=== PATIENT | female | born 1940 | race Caucasian/White ===

== ENCOUNTER 2018-08-08 20:28 | Emergency (ER) | END 2018-08-09 03:41 | disposition home or self-care (01) ==

== ENCOUNTER 2018-09-25 13:54 | Inpatient (IN) | END 2018-10-02 16:05 | disposition home health service (06) | DRG 442 ==

== ENCOUNTER 2019-01-30 11:48 | Inpatient (IN) | payer OTHER ==
[~2019-01-30] VITALS: Ht 152.4 cm; Wt 64.8 kg
[2019-01-30] VITALS (21 sets, daily range): BP systolic 70–142; BP diastolic 36–68; PULSE 53–77; RESP 10–22; Ht 152.4 cm; Wt 64.8 kg
[~2019-01-30 11:48] MED LIST: FURO40TA4 PO; LACT20SO2 PO; OMEP20CA16 PO; PROP10TA6 PO; SPIR50TA PO; ZINC220C5 PO
[2019-01-30] MEDS ORDERED: ALBUMIN HUMAN 25% 100 ML IV ONE (12:00)
[2019-01-30] MEDS ORDERED: LIDOCAINE 1% (MPF) 5 ML VIAL SC ONE (13:00)
[2019-01-30] MEDS ORDERED: CEFEPIME 2GM/50 ML (PMX) 50 ML IVPB STA (13:07)
[2019-01-30] MEDS ORDERED: SODIUM CHLORIDE 0.9% 1L BAG IV* STA (13:07)
[2019-01-30] MEDS ORDERED: NORepinephrine 8MG/250 ML (PMX 250 ML IV STA (13:07)
[2019-01-30] MEDS ORDERED: LACTULOSE 30ML CUP NGT ONE (13:30)
[2019-01-30] MEDS ORDERED: VANCOMYCIN 1 GM (PMX) 250 ML IVPB ONE (13:30)
--- NOTE | 2019-01-30 14:05 | ERD ---
ER Documentation Chief Complaint Chief Complaint hypotensive, aloc starting this morning, HPI 78-year-old female presents with altered mental status from home. Her son arrives and is able to provide mild history. It appears patient has a history of cirrhosis. Over the past 24-48 hours the patient was becoming increasingly lethargic and fused. No report of fall or injury fevers chills or cough. The patient is sonorous and unable to provide further history. ROS Limited as documented above Medications Home Meds Active Scripts Zinc Sulfate* (Zinc Sulfate*) 220 Mg Cap, 220 MG PO DAILY for 30 Days, #30 CAP 6 Refills Prov:MANAS JACKSON MD 10/02/18 Lactulose* (Lactulose*) 20 Gm/30 Ml Solution, 20 GM PO BID for 30 Days, #1 BOTTLE 6 Refills Prov:MANAS JACKSON MD 10/02/18 Reported Medications Omeprazole* (Omeprazole*) 20 Mg Capsule.dr, 20 MG PO AC BREAKFAST, #30 CAP 09/25/18 Furosemide* (Furosemide*) 40 Mg Tablet, 40 MG PO DAILY, TAB 09/25/18 Propranolol Hcl* (Propranolol Hcl*) 10 Mg Tablet, 10 MG PO BID, TAB 09/25/18 Spironolactone* (Aldactone*) 50 Mg Tablet, 100 MG PO DAILY, #30 TAB 09/25/18 Allergies Allergies: Coded Allergies: No Known Allergy (Unverified , 01/30/19) PMhx/Soc History of Surgery: No Anesthesia Reaction: No Hx Neurological Disorder: Yes (ALOC) Hx Respiratory Disorders: No Hx Cardiac Disorders: Yes (HTN) Hx Psychiatric Problems: No Hx Miscellaneous Medical Probl: Yes (CIRRHOSIS ASCITES SHINGLES) Hx Alcohol Use: No Hx Substance Use: No Hx Tobacco Use: No Smoking Status: Never smoker FmHx Family History: No diabetes Physical Exam Vitals Vital Signs Date Temp Pulse Resp B/P (MAP) Pulse Ox O2 O2 Flow FiO2 Time Delivery Rate 01/30/19 63 22 81/51 (61) 100 Room Air 14:03 01/30/19 Nasal 2 12:25 Cannula 01/30/19 95.7 62 18 74/40 (51) 100 11:58 Physical Exam General: Patient protecting airway but somewhat sonorous Head: Normocephalic, atraumatic. Eyes: Pupils equally reactive, EOM intact ENT: Dry mucous membranes Neck: Supple, no lymphadenopathy Respiratory: Lungs clear bilaterally, no distress Cardiovascular: RRR, no murmurs, rubs, or gallops Abdominal: Protuberant with fluid wave, nontender, periumbilical hernia easily reducible : Deferred MSK: Limited movement of all 4 extremities, no bony abnormalities, no asterixis Neurologic: Encephalopathic, limited exam Skin: No rash, no significant breakdown Psych: Unable to assess Result Diagram: 01/30/19 1222 01/30/19 1222 Results 24 hrs Laboratory Tests Test 01/30/19 12:04 01/30/19 12:22 01/30/19 13:59 Bedside Glucose 88 mg/dL White Blood Count 4.7 10^3/ul Red Blood Count 2.52 10^6/ul Hemoglobin 7.8 g/dl Hematocrit 23.8 % Mean Corpuscular Volume 94.4 fl Mean Corpuscular Hemoglobin 31.0 pg Mean Corpuscular 32.8 g/dl Hemoglobin Concent Red Cell Distribution Width 17.4 % Platelet Count 144 10^3/UL Mean Platelet Volume 11.2 fl Immature Granulocytes % 0.400 % Neutrophils % 64.2 % Lymphocytes % 21.1 % Monocytes % 10.1 % Eosinophils % 3.6 % Basophils % 0.6 % Nucleated Red Blood Cells % 0.0 /100WBC Immature Granulocytes # 0.020 10^3/ul Neutrophils # 3.0 10^3/ul Lymphocytes # 1.0 10^3/ul Monocytes # 0.5 10^3/ul Eosinophils # 0.2 10^3/ul Basophils # 0.0 10^3/ul Nucleated Red Blood Cells # 0.0 10^3/ul Prothrombin Time 15.9 Sec Prothrombin Time Ratio 1.2 INR International Normalized Ratio 1.26 Activated Partial Thromboplast 37.3 Sec Time Sodium Level 133 mmol/L Potassium Level 6.0 mmol/L Chloride Level 114 mmol/L Carbon Dioxide Level 7 mmol/L Anion Gap 12 Blood Urea Nitrogen 68 mg/dl Creatinine 5.50 mg/dl Est Glomerular Filtrat Rate mL/min mL/min Glucose Level 82 mg/dl Calcium Level 8.2 mg/dl Total Bilirubin 0.6 mg/dl Direct Bilirubin 0.00 mg/dl Indirect Bilirubin 0.6 mg/dl Aspartate Amino Transf (AST/SGOT) 31 IU/L Alanine 35 IU/L Aminotransferase (ALT/SGPT) Alkaline Phosphatase 164 IU/L Ammonia 237 umol/l Troponin I < 0.012 ng/ml Total Protein 6.0 g/dl Albumin 2.4 g/dl Globulin 3.60 g/dl Albumin/Globulin Ratio 0.66 POC Venous Lactate 2.6 mmol/L Current Medications Medications Dose Sig/Bhavna Start Time Status Last (Trade) Ordered Route PRN Stop Time Admin Dose Reason Admin Albumin 100 ml @ ONCE ONCE 01/30/19 DC 01/30/19 Human 100 mls/hr IV 12:00 12:57 01/30/19 12:59 Lidocaine 5 ml ONCE ONCE 01/30/19 DC (Xylocaine SC 13:00 1% (Mpf)) 01/30/19 13:01 Sodium 2,390 ml BOLUS OVER 2 01/30/19 DC 01/30/19 Chloride HOURS STAT 13:07 14:06 (NS) IV* 01/30/19 13:09 250 ml @ ONCE STAT 01/30/19 Norepinephrin 7.5 mls/hr IV 13:07 e 01/31/19 22:26 Cefepime HCl 50 ml @ ONCE STAT 01/30/19 DC 01/30/19 100 mls/hr IVPB 13:07 14:06 01/30/19 13:36 Vancomycin 250 ml @ ONCE ONCE 01/30/19 HCl 125 mls/hr IVPB 13:30 01/30/19 15:29 Lactulose 20 gm ONCE ONCE 01/30/19 DC 01/30/19 (Enulose) NGT 13:30 14:07 01/30/19 13:31 Procedures/MDM EKG, MONITORS, & DIAGNOSTIC IMAGING: EKG: I reviewed and interpreted a 12-lead EKG. Rhythm: Sinus bradycardia ST Changes: No contiguous ST segment elevations T waves: No contiguous T wave inversions Impression: [No evidence of acute cardiac ischemia] Chest x-ray: IMPRESSION: Mild chronic interstitial changes in the lung bases. Calcified aorta consistent with atherosclerotic disease. Repeat CXR IMPRESSION: New right-sided central line in place with no evidence of pneumothorax. Nasogastric tube within the stomach. CT brain IMPRESSION: 1. No acute intracranial hemorrhage, transcortical infarction or mass effect. 2. Mild intracranial atherosclerosis and chronic small vessel ischemic changes. 3. Mild cerebral volume loss more pronounced in bilateral frontal lobes with associated prominent frontal extra-axial CSF spaces. RPTAT: HH LAB INTERPRETATION: I reviewed the laboratory testing and it shows multiple abnormalities including acute renal failure with hyperkalemia, lactic acid elevation with low bicarb of 7 PROCEDURE: Central Line Note: Consent: [Critical patient, unable to obtain informed consent] Indication: Critically ill patient requiring specialized vascular access for fluid or pressor management Location: Right IJ Indication: Hypotension Procedure: Sterile procedure was observed throughout insertion of the central line. The insertion site was prepped with sterile solution. Ultrasound-guided identification of the vein was performed. Insertion of a needle into the vein was obtained with return of dark, nonpulsatile blood. The wire was then threaded through the needle without complication. The wire was then identified within the vein using ultrasound. A small skin incision was made, the needle was removed intact, dilation of the vein was performed and insertion of a triple lumen catheter was completed. The catheter was then sutured to the skin. All 3 ports altaf back and flushed without difficulty. A sterile dressing was applied. The patient tolerated the procedure well there were no complications. Emergency Bedside Ultrasound: Indication: Central line Probe Type: Linear Findings: Dynamic ultrasound utilizing compressive technique with both linear and horizontal views, additional images showing wire within the venous system were obtained. The images were saved along with patient information on a paper chart to be scanned into EMR. The patient tolerated the procedure well and there were no complications. A post-line chest x-ray was ordered as indicated. MEDICAL DECISION MAKING: Patient presents with borderline blood pressure, altered mental status very consistent with likely hepatic encephalopathy. Patient had no fever, tachycardia therefore I do not feel that this was consistent with sepsis. However during the patient's ER course and workup the patient was noted to have persistently low blood pressure as well as anion gap metabolic acidosis. I believe the anion gap metabolic acidosis is more consistent with the patient's acute renal failure possibly secondary to hepatorenal syndrome. However, empiric coverage with fluid resuscitation, blood cultures, broad- spectrum antibiotics would be appropriate. The patient has no abdominal pain suggestive of SBP. I do not believe this is consistent with meningitis and do not feel lumbar puncture is necessary. No clear source of infection currently. ER COURSE: * The patient was initially treated with albumin. However only mild response of blood pressure. As noted above the patient was noted to have anion gap acidosis, acute renal failure, hyperkalemia. * Blood pressure continued to be persistently low prompting central line. Levo to the bedside * Blood cultures and antibiotics provided * Patient was given lactulose through an NG tube * Hemoglobin consistent with baseline * Hyperkalemia treated with bicarb, Kayexalate, calcium I held on dextrose and insulin given the complexity of the patient's presentation and wanted to limited the number of interventions. * Patient was written for IV fluids. Continue to monitor respiratory status but at this point the patient is maintaining airway and seems appropriately tachypneic to catch up with her metabolic acidosis. I do not believe positive pressure ventilation or intubation are necessary at this time. * Family was updated at the bedside. CONSULTATION: [None] DISPOSITION PLAN: Accepting care team and consultations: I discussed the current laboratory data, diagnostic imaging and emergency care provided. Admitting team: Dr. Jean Admitting team indication: Insurance directed The patient does not meet Sirs criteria in the emergency room setting. The temperature is the only abnormality and this was not on rectally. Rectal temperature pending. Patient was treated with appropriate fluids and antibiotics for sepsis but I do not believe this is consistent with sepsis in the emergency room setting. More consistent with hepatorenal syndrome, hepatic encephalopathy. Lactic acid is likely explained by this process as well. Departure Diagnosis: Primary Impression: Acute hepatic encephalopathy Additional Impressions: Acute renal failure Acute renal failure type: unspecified Qualified Codes: N17.9 - Acute kidney failure, unspecified Hyperkalemia Anemia Anemia type: unspecified type Qualified Codes: D64.9 - Anemia, unspecified Hypotension Hypotension type: unspecified hypotension type Qualified Codes: I95.9 - Hypotension, unspecified Hyperammonemia Condition: Critical MELISSA CHEN MD Jan 30, 2019 14:05
[2019-01-30] MEDS ORDERED: SODIUM POLYSTYRENE 15 GM KIT (POWDER + SORBITOL) NGT STA (14:13)
[2019-01-30] MEDS ORDERED: NA BICARBONATE 8.4% 50 ML SYG IV STA (14:13)
[2019-01-30] MEDS ORDERED: CA CHLORIDE 10% 10 ML SYRINGE IV STA (14:13)
[2019-01-30] MEDS ORDERED: ALBUMIN HUMAN 25% 50 ML IV SCH (16:00)
--- NOTE | 2019-01-30 16:04 | HP ---
Date/Time of Note Date/Time of Note DATE: 01/30/19 TIME: 15:43 Assessment/Plan VTE Prophylaxis SCD applied (from Nsg): Yes Pharmacological prophylaxis: heparin Lines/Catheters IV Catheter Type (from Nrsg): Saline Lock Assessment/Plan Hospital Course 78 yo female with h/o cirrhosis who presents with obtundation and severe REVA REVA: - Unclear etiology. Renal ultrasound prelim without obstruction - She is on diuretics but is hypervolemic on exam so unlikely prerenal disease - Kayexalate has been given for hyperkalemia - Will given 25% albumin - Renal has been consulted for consideration of HD - Urine studies pending Acute encephelopathy/obtundation: - Hepatic encephelopahty certainly high on differential, will continue la ctulose/rifaxamin via NG tube - Head CT without acute pathology - Will continue empiric abx for possible sepsis, low threshold to discontinue in 2 days if cultures negative Cirrohsis; - Lactulose/rifaxamin as above - Hold diuretics and propranolol Anemia - From cirrhosis, no clinical report of bleeding Metabolic acidosis: - Likely from renal failure and respiratory alkalosis To ICU Result Diagram: 01/30/19 1222 01/30/19 1222 Results 24hrs Laboratory Tests Test 01/30/19 12:04 01/30/19 12:22 01/30/19 13:59 Bedside Glucose 88 White Blood Count 4.7 L Red Blood Count 2.52 L Hemoglobin 7.8 L Hematocrit 23.8 L Mean Corpuscular Volume 94.4 Mean Corpuscular Hemoglobin 31.0 Mean Corpuscular Hemoglobin Concent 32.8 Red Cell Distribution Width 17.4 H Platelet Count 144 # Mean Platelet Volume 11.2 H Immature Granulocytes % 0.400 Neutrophils % 64.2 Lymphocytes % 21.1 Monocytes % 10.1 Eosinophils % 3.6 Basophils % 0.6 Nucleated Red Blood Cells % 0.0 Immature Granulocytes # 0.020 Neutrophils # 3.0 Lymphocytes # 1.0 Monocytes # 0.5 Eosinophils # 0.2 Basophils # 0.0 Nucleated Red Blood Cells # 0.0 Prothrombin Time 15.9 H Prothrombin Time Ratio 1.2 INR International Normalized Ratio 1.26 Activated Partial Thromboplast Time 37.3 H Sodium Level 133 L Potassium Level 6.0 H Chloride Level 114 H Carbon Dioxide Level 7 *L Anion Gap 12 Blood Urea Nitrogen 68 H Creatinine 5.50 H Est Glomerular Filtrat Rate mL/min Glucose Level 82 Calcium Level 8.2 L Total Bilirubin 0.6 Direct Bilirubin 0.00 Indirect Bilirubin 0.6 Aspartate Amino Transf (AST/SGOT) 31 Alanine Aminotransferase (ALT/SGPT) 35 Alkaline Phosphatase 164 H Ammonia 237 #H Troponin I < 0.012 Total Protein 6.0 L Albumin 2.4 L Globulin 3.60 H Albumin/Globulin Ratio 0.66 POC Venous Lactate 2.6 *H HPI/ROS Admit Date/Time Admit Date/Time Hx of Present Illness 78 yo female with 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 Went to her outpatinet [employer] Work[employer] who increased lactulose out of concern for HE. Despite this she has become lethargic to the point of obtundation today for which Deny called [phone] She denied any other complaints Here found to be lethargic. Head CT non-acute. In severe renal failure ROS Constitutional: no complaints, improved Eyes: no complaints ENT: no complaints Respiratory: no complaints Cardiovascular: no complaints Gastrointestinal: no complaints Genitourinary: no complaints Musculoskeletal: no complaints Skin: no complaints Neurologic: no complaints Endocrine: no complaints Lymphatic: no complaints Psychological: no complaints, nl mood/affect Immunologic: no complaints PMH/Family/Social Past Medical History Cirrhosis Medications Current Medications Norepinephrine 250 ml @ 7.5 mls/hr ONCE STAT IV ; Start 01/30/19 at 13:07; Stop 01/31/19 at 22:26 Coded Allergies: No Known Allergy (Unverified , 01/30/19) Past Surgical History Past Surgical Hx: no surgical history Family History Significant Family History: no pertinent family hx Social History Alcohol Use: none Smoking Status: Never smoker Drug Use: none Exam/Review of Systems Vital Signs Vitals Vital Signs Date Temp Pulse Resp B/P (MAP) Pulse Ox O2 O2 Flow FiO2 Time Delivery Rate 01/30/19 62 22 98/77 (84) 100 Room Air 15:13 01/30/19 2 12:25 01/30/19 95.7 11:58 Exam Exam Lethargic Responsive to noxious stimuli Pupils reactive Breathing comfortably RRR Abodmen distended, nontender Ext with edema ALICIA SHARP MD Jan 30, 2019 16:04
[2019-01-30] MEDS ORDERED: LACTULOSE 30ML CUP PO PRN (16:30)
[2019-01-30] MEDS ORDERED: VANCOMYCIN IV PER PHARMACY XX SCH (16:30)
[2019-01-30] MEDS: ALBUMIN HUMAN 25% 100 ML IV SCH ×2 (19:05→23:40)
--- NOTE | 2019-01-30 19:23 | CONS ---
Assessment/Plan Assessment/Plan Assessment/Plan (Daily) Assessment: Hepatic encephalopathy -ammonia level 237 Liver cirrhosis with ascites Acute renal failure -we will out hepatorenal syndrome Anemia Plan: Diagnostic paracentesis tomorrow Paracentesis fluid for cultures Continue lactulose and rifaximin Continue antibiotics Consider nephrology consult for diuresis Monitor H&H Transfuse for hemoglobin less than 7.5 Patient seen in collaboration with Dr. Avilez Consultation Date/Type/Reason Admit Date/Time Date of Consultation: Jan 30, 2019 Type of Consult GI Date/Time of Note DATE: 01/30/19 TIME: 19:07 Hx of Present Illness This is a 78-year-old female with a history of liver cirrhosis, unknown etiology who was admitted for altered mental status. Patient is obtunded and unable to provide information. Information obtained from previous medical records. Patient was started on lactulose and rifaximin for ammonia level of 237. Hemoglobin on admission was 7.8 with no evidence of overt GI bleeding. There is no evidence of hematemesis, vomiting, hematochezia, melena or abdominal pain. Creatinine is 5.50 raising suspicion for hepatorenal syndrome. Moderate ascites present. Patient was previously on diuretics. Will order paracentesis with LDH and cell count. Recommend nephrology consult for diuresis and managing possible hepatorenal syndrome. Patient was started on antibiotics for SBP prophylaxis. NG tube inserted for medication administration. Albumin has been ordered. We will continue close observation. Gastrointestinal: no complaints (See HPI) Past Medical History Home Meds Active Scripts Zinc Sulfate* (Zinc Sulfate*) 220 Mg Cap, 220 MG PO DAILY for 30 Days, #30 CAP 6 Refills Prov:MANAS JACKSON MD 10/02/18 Lactulose* (Lactulose*) 20 Gm/30 Ml Solution, 20 GM PO BID for 30 Days, #1 BOTTLE 6 Refills Prov:MANAS JACKSON MD 10/02/18 Reported Medications Omeprazole* (Omeprazole*) 20 Mg Capsule., 20 MG PO AC BREAKFAST, #30 CAP 09/25/18 Furosemide* (Furosemide*) 40 Mg Tablet, 40 MG PO DAILY, TAB 09/25/18 Propranolol Hcl* (Propranolol Hcl*) 10 Mg Tablet, 10 MG PO BID, TAB 09/25/18 Spironolactone* (Aldactone*) 50 Mg Tablet, 100 MG PO DAILY, #30 TAB 09/25/18 Medications Current Medications Norepinephrine 250 ml @ 7.5 mls/hr ONCE STAT IV ; Start 01/30/19 at 13:07; Stop 01/31/19 at 22:26 Vancomycin HCl (Vanco Iv Per Pharmacy) VANCOMYCIN PER PHARMACY PER PROTOCOL XX ; Start 01/30/19 at 16:30 Piperacillin Sod/ Tazobactam Sod 50 ml @ 100 mls/hr Q8 IVPB ; Start 01/30/19 at 22:00 Rifaximin (Xifaxan) 550 mg BID PO ; Start 01/30/19 at 21:00 Heparin Sodium (Porcine) (Heparin (5000 Units/1ml)) 5,000 unit Q12 SC ; Start 01/30/19 at 21:00 Lactulose (Enulose) 20 gm Q6H PO ; Start 01/30/19 at 22:30 Albumin Human 100 ml @ 100 mls/hr Q8H IV Last administered on 01/30/19at 19:05; Admin Dose 100 MLS/HR; Start 01/30/19 at 16:00; Stop 01/31/19 at 08:59 Allergies: Coded Allergies: No Known Allergy (Unverified , 01/30/19) Past Surgical History Past Surgical Hx: no surgical history Social History Alcohol Use: none Smoking Status: Former smoker Drug Use: none Exam/Review of Systems Exam Vitals Vital Signs Date Temp Pulse Resp B/P (MAP) Pulse Ox O2 O2 Flow FiO2 Time Delivery Rate 01/30/19 67 13 107/68 98 Room Air 18:00 (81) 01/30/19 95.2 16:31 01/30/19 2 12:25 Exam PHYSICAL EXAMINATION: GENERAL: Well developed, well nourished, alert & oriented x 3, in no acute distress SKIN: No lesions, no stigmata chronic liver disease, no evidence of bleeding diathesis LYMPHATIC: No palpable lymphadenopathy. HEAD: Normocephalic, atraumatic, no tenderness. EYES: Pupils equal reactive to light and accommodation, full extraocular movements, sclera clear, non-icteric, no discharge. EARS/NOSE AND THROAT: Ears normal, nose normal, oropharynx normal, oral membranes well hydrated without lesions. NG tube in place. NECK: Supple, no masses, thyroid normal, JVP within normal limits, carotids normal without bruits. CHEST: Inspection within normal limits. CARDIOVASCULAR: Heart: Regular rate and rhythm, no murmurs, gallops or rubs. Peripheral pulses present within normal limits, no cyanosis, clubbing or edemas. No pulsatile abdominal mass RESPIRATORY: Lungs clear to auscultation and percussion, no wheezing, no rubs GASTROINTESTINAL AND LIVER: Abdomen: Soft, non tenderness, non-distended, umbilical hernias, no masses, no organomegaly, moderate ascites, no guarding, no rebound tenderness, normoactive bowel sounds. Rectal: Deferred. GENITOURINARY: Female genitalia within normal limits. Raphael catheter in place EXTREMITIES: No cyanosis, clubbing or edema. Results Result Diagram: 01/30/19 1222 01/30/19 1222 Results 24hrs Laboratory Tests Test 01/30/19 12:04 01/30/19 12:22 01/30/19 13:59 01/30/19 16:06 Bedside Glucose 88 White Blood Count 4.7 L Red Blood Count 2.52 L Hemoglobin 7.8 L Hematocrit 23.8 L Mean Corpuscular 94.4 Volume Mean Corpuscular 31.0 Hemoglobin Mean Corpuscular 32.8 Hemoglobin Concent Red Cell 17.4 H Distribution Width Platelet Count 144 # Mean Platelet Volume 11.2 H Immature 0.400 Granulocytes % Neutrophils % 64.2 Lymphocytes % 21.1 Monocytes % 10.1 Eosinophils % 3.6 Basophils % 0.6 Nucleated Red Blood 0.0 Cells % Immature 0.020 Granulocytes # Neutrophils # 3.0 Lymphocytes # 1.0 Monocytes # 0.5 Eosinophils # 0.2 Basophils # 0.0 Nucleated Red Blood 0.0 Cells # Prothrombin Time 15.9 H Prothrombin Time 1.2 Ratio INR International 1.26 Normalized Ratio Activated 37.3 H Partial Thromboplast Time Sodium Level 133 L Potassium Level 6.0 H Chloride Level 114 H Carbon Dioxide Level 7 *L Anion Gap 12 Blood Urea Nitrogen 68 H Creatinine 5.50 H Est Glomerular Filtrat Rate mL/min Glucose Level 82 Calcium Level 8.2 L Total Bilirubin 0.6 Direct Bilirubin 0.00 Indirect Bilirubin 0.6 Aspartate Amino 31 Transf (AST/SGOT) Alanine 35 Aminotransferase (AL T/SGPT) Alkaline Phosphatase 164 H Ammonia 237 #H Troponin I < 0.012 Total Protein 6.0 L Albumin 2.4 L Globulin 3.60 H Albumin/Globulin 0.66 Ratio POC Venous Lactate 2.6 *H 2.3 *H Medications Medication Current Medications Norepinephrine 250 ml @ 7.5 mls/hr ONCE STAT IV ; Start 01/30/19 at 13:07; Stop 01/31/19 at 22:26 Vancomycin HCl (Vanco Iv Per Pharmacy) VANCOMYCIN PER PHARMACY PER PROTOCOL XX ; Start 01/30/19 at 16:30 Piperacillin Sod/ Tazobactam Sod 50 ml @ 100 mls/hr Q8 IVPB ; Start 01/30/19 at 22:00 Rifaximin (Xifaxan) 550 mg BID PO ; Start 01/30/19 at 21:00 Heparin Sodium (Porcine) (Heparin (5000 Units/1ml)) 5,000 unit Q12 SC ; Start 01/30/19 at 21:00 Lactulose (Enulose) 20 gm Q6H PO ; Start 01/30/19 at 22:30 Albumin Human 100 ml @ 100 mls/hr Q8H IV Last administered on 01/30/19at 19:05; Admin Dose 100 MLS/HR; Start 01/30/19 at 16:00; Stop 01/31/19 at 08:59 CHADD PEREZ NP Jan 30, 2019 19:20
[2019-01-30] MEDS ORDERED: NA BICARBONATE 8.4% 50 ML SYG IV ONE (20:30)
--- NOTE | 2019-01-30 20:55 | CONS ---
DATE OF ADMISSION: 01/30/2019 DATE OF CONSULTATION: 01/30/2019 TYPE OF CONSULTATION: Nephrology. REASON FOR CONSULTATION: Acute kidney injury, hyperkalemia. HISTORY OF PRESENT ILLNESS: This is a 78-year-old female with a past medical history of cirrhosis, a history of ascites, history of hypertension, who presents to [facility] emergency room with altered mental status. The patient's history is obtained by reviewing medical records and speaking to hospital staff. The patient apparently was noted over the last several days to have decreased men cary capacity, decreased oral intake, increased lethargy. As a result, the patient was brought in to the emergency room. Upon arrival, patient had laboratory data drawn, which showed a BUN of 68, creat inine 5.5, a potassium level of 7 and a bicarbonate of 7. The patient also had a white count of 4.7. In the emergency room, the patient had a CT scan of the brain that showed no acute findings. A forrest st x-ray was obtained which showed interstitial lung disease, calcified aorta. The patient also had a renal ultrasound which showed echogenic kidneys consistent with medical renal disease, no evidence of obstruction and moderate amount of ascites. The patient in the emergency room was given calcium g luconate, Kayexalate, and sodium bicarbonate. The patient was also given IV fluids and antibiotic th erapy. In terms of patient's renal history, the patient's previous baseline creatinine was about 0.7 mg/dL i n 09/2018. The patient had no reports of any hemoptysis, hematemesis or hematochezia. PAST MEDICAL HISTORY: History of cirrhosis, history of hypertension. PAST SURGICAL HISTORY: None. ALLERGIES: NO KNOWN DRUG ALLERGIES. FAMILY HISTORY: No family history of kidney disease. SOCIAL HISTORY: Does not drink, smoke, do drugs. MEDICATIONS: Have been reviewed. REVIEW OF SYSTEMS: Unable to do adequate review of systems. The patient is altered. Pertinent posi tives as obtained by reviewing medical records and speaking to hospital staff, stated in the HPI, oth erwise negative. PHYSICAL EXAMINATION: VITAL SIGNS: Blood pressure is 107/68, respirations 13, pulse 67, temperature 95.2. HEENT: Head is normocephalic. NECK: Supple. HEART: Regular rate. LUNGS: Show diminished breath sounds at the base. ABDOMEN: Soft, nontender to palpation. Positive umbilical hernia. EXTREMITIES: Negative for clubbing, cyanosis. Positive edema. DERMATOLOGIC: No rashes. MUSCULOSKELETAL: No joint effusions. NEUROLOGIC: The patient is obtunded. LABORATORY DATA: Shows white count 4.7, hemoglobin 7.8, platelet count 144. Sodium 133, potassium 6 .0, chloride 114, bicarbonate 7, BUN 68, creatinine 5.5. Lactic acid 2.3. IMAGING STUDIES: As stated in the HPI. ASSESSMENT AND PLAN: This is a 78-year-old female who presents with: 1. Oliguric acute kidney injury with a previous baseline creatinine of 0.7 mg/dL in 09/2018. Etiolo gy of acute kidney injury is possibly multifactorial secondary to hemodynamics, volume depletion from decreased oral intake, gastrointestinal losses, diuretics. The possibility of tubular injury is a c onsideration. The patient's renal ultrasound shows increased echogenicity consistent with chronic ki dney disease, but no evidence of obstruction. Plan at this point is to do a full evaluation. We rich l check UA with microanalysis. We will check urine electrolytes, calculate a FENa. We would continu e current medical management. We will continue with volume expansion with IV albumin. Continue anti biotic therapy. We would recommend pressor support with Levophed to maintain MAP of 65 if necessary. Please note that diagnosis of hepatorenal syndrome is one of exclusion and cannot be made at this t codie, although is a consideration in the differential. We would otherwise continue current treatment plan, supportive care, renally dose all meds. Please note that if the patient's renal function shoul d not improve or if hyperkalemia cannot be medically managed, we will then consider starting renal re placement therapy. 2. Hyperkalemia. Etiology is multifactorial secondary to acute kidney injury, possible metabolic ac idemia, Aldactone effect. The patient is status post calcium gluconate, Kayexalate, IV fluids. Plan is to repeat a renal panel. We will check an ABG. We will correct any underlying acidemia. If the patient's potassium levels cannot be medically managed, we would consider initiating renal replaceme nt therapy. 3. Acidosis presumed metabolic secondary to acute kidney injury. Plan is to check an ABG. We would consider starting bicarbonate drip if acidemia is present. 4. Hyponatremia secondary to acute kidney injury causing decreased free water urinary excretion. We will continue to monitor. 5. Lactic acidosis. Etiology may be secondary to hemodynamics, sepsis. Continue to trend lactic ac id levels. Continue current medical management, supportive care, IV fluids, antibiotic therapy. 6. Systemic inflammatory response syndrome, possible sepsis, possibly from spontaneous bacterial per itonitis. Continue current medical management. Continue antibiotic therapy, continue IV fluids. We would consider pressor support if necessary to maintain MAP of 65. 7. Acute encephalopathy, etiology is multifactorial, possibly due to hepatic encephalopathy, possibl e uremia. Continue current medical management, monitor closely. 8. History of decompensated cirrhosis. The patient is on Lactulose, rifaximin and propranolol. Con tinue to monitor. 9. History of anemia. Check an iron panel, stool occult blood. Thank you, Dr. Jean, for this interesting consult. It will be a pleasure to follow the patient wi th you. Dictated By: ZOË FUCHS DO NR/NTS Conf#: [id number] DID#: [id number] CC: ALICIA JEAN MD;*EndCC*
[2019-01-30] MEDS ORDERED: RIFAXIMIN 550 MG TAB PO SCH (21:00)
[2019-01-30] MEDS ORDERED: NORepinephrine 8MG/250 ML (PMX 250 ML IV SCH (21:00)
[2019-01-30] MEDS: PIPER-TAZO 2.25 GM (PMX) 50 ML IVPB SCH (21:20)
[2019-01-30] MEDS: HEPARIN 5,000 UNIT/1 ML VIAL SC SCH (21:22)
[2019-01-30] MEDS: LACTULOSE 30ML CUP PO SCH (21:30)
[2019-01-30] MEDS: RIFAXIMIN 550 MG TAB PO SCH (23:39)
[2019-01-31] VITALS (93 sets, daily range): BP systolic 67–129; BP diastolic 40–109; PULSE 60–80; RESP 10–21
[2019-01-31] MEDS: LACTULOSE 30ML CUP PO SCH ×4 (05:06→22:27)
[2019-01-31] MEDS: PIPER-TAZO 2.25 GM (PMX) 50 ML IVPB SCH ×3 (05:22→21:13)
[2019-01-31] MEDS: ALBUMIN HUMAN 25% 100 ML IV SCH (08:49)
[2019-01-31] MEDS: RIFAXIMIN 550 MG TAB PO SCH ×2 (08:50→21:10)
[2019-01-31] MEDS: HEPARIN 5,000 UNIT/1 ML VIAL SC SCH ×2 (08:50→21:12)
[2019-01-31] MEDS: NORepinephrine 8MG/250 ML (PMX 250 ML IV SCH ×2 (08:53→17:34)
--- NOTE | 2019-01-31 09:17 | PN ---
Date/Time of Note Date/Time of Note DATE: 01/31/19 TIME: 09:11 Assessment/Plan VTE Prophylaxis Risk score (from Nsg)>0 risk: 6 SCD applied (from Nsg): Yes Pharmacological prophylaxis: other Lines/Catheters IV Catheter Type (from Nrsg): Central Line Central line still needed: Yes Urinary Cath still in place: Yes Reason Cath still needed: urinary retention Assessment/Plan Hospital Course late entry renal follow up HISTORY OF PRESENT ILLNESS: This is a 78-year-old female with a past medical history of cirrhosis, a history of ascites, history of hypertension, who presents to [facility] emergency room with altered mental status. The patient's history is obtained by reviewing medical records and speaking to hospital staff. The patient apparently was noted over the last several days to have decreased mental capacity, decreased oral intake, increased lethargy. As a result, the patient was brought in to the emergency room. Upon arrival, patient had laboratory data drawn, which showed a BUN of 68, creatinine 5.5, a potassium level of 7 and a bicarbonate of 7. The patient also had a renal ultrasound which showed echogenic kidneys consistent with medical renal disease, no evidence of obstruction and moderate amount of ascites. The patient in the emergency room was given calcium gluconate, Kayexalate, and sodium bicarbonate. The patient was also given IV fluids and antibiotic therapy. In terms of patient's renal history, the patient's previous baseline creatinine was about 0.7 mg/dL in 09/2018. The patient had no reports of any hemoptysis, hematemesis or hematochezia. she is now in ICU for septic shock and ARF BP is marginal with pressors low uop noted discussed with family and Dr Temple PHYSICAL EXAMINATION: HEENT: Head is normocephalic. NECK: Supple. HEART: Regular rate. LUNGS: Show diminished breath sounds at the base. ABDOMEN: Soft, nontender to palpation. Positive umbilical hernia. EXTREMITIES: Negative for clubbing, cyanosis. Positive edema. DERMATOLOGIC: No rashes. MUSCULOSKELETAL: No joint effusions. NEUROLOGIC: The patient is obtunded. time of snf: 40 min ASSESSMENT AND PLAN: This is a 78-year-old female who presents with: 1. Oliguric acute kidney injury with a previous baseline creatinine of 0.7 mg/dL in 09/2018. Etiology of acute kidney injury is tubular injury due to hypotension and septic shock. will add midodrine to support BP. continue IVF. Continue antibiotic therapy. no indication for HD yet. will add renvela for hyperphos 2. Hyperkalemia. due to acidosis and ARF. resolved 3. Acidosis presumed metabolic secondary to acute kidney injury and lactic acidemia. Ph is actually at target. no bicarb at this time 4. Hyponatremia secondary to acute kidney injury causing decreased free water urinary excretion. We will continue to monitor. 5. Lactic acidosis. Etiology may be secondary to hemodynamics, sepsis. Continue to trend lactic acid levels. Continue current medical management, supportive care, IV fluids, antibiotic therapy. 6. Systemic inflammatory response syndrome, possible sepsis, possibly from spontaneous bacterial peritonitis. Continue current medical management. Continue antibiotic therapy, continue IV fluids. We would consider pressor support if necessary to maintain MAP of 65. 7. Acute encephalopathy, etiology is multifactorial, possibly due to hepatic encephalopathy, possible uremia. Continue current medical management, monitor closely. 8. History of decompensated cirrhosis. The patient is on Lactulose, rifaximin and propranolol. Continue to monitor. 9. History of anemia. Check an iron panel, stool occult blood. Result Diagram: 01/31/19 0405 01/31/19 0405 Results 24hrs Laboratory Tests Test 01/30/19 12:04 01/30/19 12:22 01/30/19 13:59 01/30/19 16:06 Bedside Glucose 88 White Blood 4.7 L Count Red Blood Count 2.52 L Hemoglobin 7.8 L Hematocrit 23.8 L Mean Corpuscular 94.4 Volume Mean Corpuscular 31.0 Hemoglobin Mean Corpuscular 32.8 Hemoglobin Dominique nt Red Cell 17.4 H Distribution Width Platelet Count 144 # Mean Platelet 11.2 H Volume Immature 0.400 Granulocytes % Neutrophils % 64.2 Lymphocytes % 21.1 Monocytes % 10.1 Eosinophils % 3.6 Basophils % 0.6 Nucleated Red 0.0 Blood Cells % Immature 0.020 Granulocytes # Neutrophils # 3.0 Lymphocytes # 1.0 Monocytes # 0.5 Eosinophils # 0.2 Basophils # 0.0 Nucleated Red 0.0 Blood Cells # Prothrombin Time 15.9 H Prothrombin Time 1.2 Ratio INR 1.26 International Normalized Ratio Activated 37.3 H Partial Thrombop last Time Sodium Level 133 L Potassium Level 6.0 H Chloride Level 114 H Carbon Dioxide 7 *L Level Anion Gap 12 Blood Urea 68 H Nitrogen Creatinine 5.50 H Est Glomerular Filtrat Rate mL/min Glucose Level 82 Calcium Level 8.2 L Total Bilirubin 0.6 Direct Bilirubin 0.00 Indirect 0.6 Bilirubin Aspartate Amino 31 Transf (AST/SGOT ) Alanine 35 Aminotransferase (ALT/SGPT) Alkaline 164 H Phosphatase Ammonia 237 #H Troponin I < 0.012 Total Protein 6.0 L Albumin 2.4 L Globulin 3.60 H Albumin/Globulin 0.66 Ratio POC Venous 2.6 *H 2.3 *H Lactate Test 01/30/19 18:15 01/30/19 18:18 01/30/19 18:20 01/30/19 18:25 Sodium Level 137 Potassium Level 5.4 H Chloride Level 118 H Carbon Dioxide 6 *L Level Anion Gap 13 Blood Urea 65 H Nitrogen Creatinine 4.96 H Est Glomerular Filtrat Rate mL/min Glucose Level 89 Calcium Level 8.9 Activated 42.2 H Partial Thrombop last Time Lactic Acid 2.3 *H Level Urine Random 131.99 Creatinine Urine Random 30 Sodium Urine Total 45.0 H 1+ H Protein Urine Color TESSIE Urine Clarity TURBID A Urine pH 5.0 Urine Specific 1.013 [place] Urine Ketones NEGATIVE Urine Nitrite NEGATIVE Urine Bilirubin NEGATIVE Urine NEGATIVE Urobilinogen Urine Leukocyte 3+ H Esterase Urine 34 H Microscopic RBC Urine > 182 H Microscopic WBC Urine Bacteria FEW A Urine Mucus FEW A Urine Yeast MANY A (Budding) Urine Hemoglobin 1+ H Urine Glucose NEGATIVE Test 01/30/19 18:59 01/30/19 23:00 01/31/19 04:05 01/31/19 04:57 Blood Gas Blood arterial Blood arterial Specimen Source Arterial Blood 01/30/2019 7:20: 01/30/2019 11:00 Date Drawn 33 PM :35 PM Arterial Blood 7.317 L 7.436 pH (Temp corrected) Arterial Blood 16.3 L 16.2 L pCO2 (Temp correct) Arterial Blood 130.0 H 112.7 H pO2 (Temp corrected) Arterial Blood 8.2 *L 10.7 L HCO3 Arterial Blood -16.0 L -11.7 L Base Excess Arterial Blood 97.7 97.3 Oxygen Saturatio n Ga Test N/A N/A Arterial Blood Right Brachial Right Brachial Gas Puncture Site Arterial 0.2 0.2 Blood Carboxyhem oglobin Arterial Blood 0.3 0.3 Methemoglobin Blood Gas A-a O2 0.2 L 17.6 Differential Oxyhemoglobin 97.2 96.8 Percent Blood Gas 37.0 37.0 Temperature Blood Gas ROOM AIR ROOM AIR Modality FiO2 21.0 21.0 Blood Gas C JACOBY BRYAN Critical Value Read Back Blood Gas UP UP Notified Whom Blood Gas 01/30/2019 7:40: 01/30/2019 11:08 Notified Time 47 PM :13 PM White Blood 8.5 # Count Red Blood Count 2.60 L Hemoglobin 8.0 L Hematocrit 23.7 L Mean Corpuscular 91.2 Volume Mean Corpuscular 30.8 Hemoglobin Mean Corpuscular 33.8 Hemoglobin Dominique nt Red Cell 17.4 H Distribution Width Platelet Count 185 # Mean Platelet 11.0 H Volume Immature 0.500 H Granulocytes % Neutrophils % 77.7 H Lymphocytes % 10.9 L Monocytes % 8.9 Eosinophils % 1.5 Basophils % 0.5 Nucleated Red 0.0 Blood Cells % Immature 0.040 H Granulocytes # Neutrophils # 6.6 Lymphocytes # 0.9 Monocytes # 0.8 Eosinophils # 0.1 Basophils # 0.0 Nucleated Red 0.0 Blood Cells # Sodium Level 142 Potassium Level 4.7 Chloride Level 116 H Carbon Dioxide 10 L Level Anion Gap 16 H Blood Urea 67 H Nitrogen Creatinine 4.78 H Est Glomerular Filtrat Rate mL/min Glucose Level 114 Hemoglobin A1c 5.4 Calcium Level 9.0 Phosphorus Level 7.8 H Magnesium Level 1.9 Total Bilirubin 1.4 H Direct Bilirubin 0.00 Indirect 1.4 H Bilirubin Aspartate Amino 30 Transf (AST/SGOT ) Alanine 29 Aminotransferase (ALT/SGPT) Alkaline 128 H Phosphatase Total Protein 6.5 Albumin 3.3 Globulin 3.20 Albumin/Globulin 1.03 Ratio Thyroid 2.000 Stimulating Hormone (TSH) Ammonia 45 #H Exam/Review of Systems Exam Vitals Vital Signs Date Temp Pulse Resp B/P (MAP) Pulse Ox O2 O2 Flow FiO2 Time Delivery Rate 01/31/19 73 12 74/64 (67) 100 Room Air 06:00 01/31/19 98.0 04:00 01/30/19 2 12:25 Intake and Output 01/30/19 01/30/19 01/31/19 1515:00 23:00 07:00 IntakeIntake Total 164.375 ml 276.50 ml OutputOutput Total 90 ml 140 ml BalanceBalance 74.375 ml 136.50 ml Results Results 24hrs Laboratory Tests Test 01/30/19 12:04 01/30/19 12:22 01/30/19 13:59 01/30/19 16:06 Bedside Glucose 88 White Blood 4.7 L Count Red Blood Count 2.52 L Hemoglobin 7.8 L Hematocrit 23.8 L Mean Corpuscular 94.4 Volume Mean Corpuscular 31.0 Hemoglobin Mean Corpuscular 32.8 Hemoglobin Dominique nt Red Cell 17.4 H Distribution Width Platelet Count 144 # Mean Platelet 11.2 H Volume Immature 0.400 Granulocytes % Neutrophils % 64.2 Lymphocytes % 21.1 Monocytes % 10.1 Eosinophils % 3.6 Basophils % 0.6 Nucleated Red 0.0 Blood Cells % Immature 0.020 Granulocytes # Neutrophils # 3.0 Lymphocytes # 1.0 Monocytes # 0.5 Eosinophils # 0.2 Basophils # 0.0 Nucleated Red 0.0 Blood Cells # Prothrombin Time 15.9 H Prothrombin Time 1.2 Ratio INR 1.26 International Normalized Ratio Activated 37.3 H Partial Thrombop last Time Sodium Level 133 L Potassium Level 6.0 H Chloride Level 114 H Carbon Dioxide 7 *L Level Anion Gap 12 Blood Urea 68 H Nitrogen Creatinine 5.50 H Est Glomerular Filtrat Rate mL/min Glucose Level 82 Calcium Level 8.2 L Total Bilirubin 0.6 Direct Bilirubin 0.00 Indirect 0.6 Bilirubin Aspartate Amino 31 Transf (AST/SGOT ) Alanine 35 Aminotransferase (ALT/SGPT) Alkaline 164 H Phosphatase Ammonia 237 #H Troponin I < 0.012 Total Protein 6.0 L Albumin 2.4 L Globulin 3.60 H Albumin/Globulin 0.66 Ratio POC Venous 2.6 *H 2.3 *H Lactate Test 01/30/19 18:15 01/30/19 18:18 01/30/19 18:20 01/30/19 18:25 Sodium Level 137 Potassium Level 5.4 H Chloride Level 118 H Carbon Dioxide 6 *L Level Anion Gap 13 Blood Urea 65 H Nitrogen Creatinine 4.96 H Est Glomerular Filtrat Rate mL/min Glucose Level 89 Calcium Level 8.9 Activated 42.2 H Partial Thrombop last Time Lactic Acid 2.3 *H Level Urine Random 131.99 Creatinine Urine Random 30 Sodium Urine Total 45.0 H 1+ H Protein Urine Color TESSIE Urine Clarity TURBID A Urine pH 5.0 Urine Specific 1.013 [place] Urine Ketones NEGATIVE Urine Nitrite NEGATIVE Urine Bilirubin NEGATIVE Urine NEGATIVE Urobilinogen Urine Leukocyte 3+ H Esterase Urine 34 H Microscopic RBC Urine > 182 H Microscopic WBC Urine Bacteria FEW A Urine Mucus FEW A Urine Yeast MANY A (Budding) Urine Hemoglobin 1+ H Urine Glucose NEGATIVE Test 01/30/19 18:59 01/30/19 23:00 01/31/19 04:05 01/31/19 04:57 Blood Gas Blood arterial Blood arterial Specimen Source Arterial Blood 01/30/2019 7:20: 01/30/2019 11:00 Date Drawn 33 PM :35 PM Arterial Blood 7.317 L 7.436 pH (Temp corrected) Arterial Blood 16.3 L 16.2 L pCO2 (Temp correct) Arterial Blood 130.0 H 112.7 H pO2 (Temp corrected) Arterial Blood 8.2 *L 10.7 L HCO3 Arterial Blood -16.0 L -11.7 L Base Excess Arterial Blood 97.7 97.3 Oxygen Saturatio n Ga Test N/A N/A Arterial Blood Right Brachial Right Brachial Gas Puncture Site Arterial 0.2 0.2 Blood Carboxyhem oglobin Arterial Blood 0.3 0.3 Methemoglobin Blood Gas A-a O2 0.2 L 17.6 Differential Oxyhemoglobin 97.2 96.8 Percent Blood Gas 37.0 37.0 Temperature Blood Gas ROOM AIR ROOM AIR Modality FiO2 21.0 21.0 Blood Gas C NYAYA RANDI Critical Value Read Back Blood Gas UP UP Notified Whom Blood Gas 01/30/2019 7:40: 01/30/2019 11:08 Notified Time 47 PM :13 PM White Blood 8.5 # Count Red Blood Count 2.60 L Hemoglobin 8.0 L Hematocrit 23.7 L Mean Corpuscular 91.2 Volume Mean Corpuscular 30.8 Hemoglobin Mean Corpuscular 33.8 Hemoglobin Dominique nt Red Cell 17.4 H Distribution Width Platelet Count 185 # Mean Platelet 11.0 H Volume Immature 0.500 H Granulocytes % Neutrophils % 77.7 H Lymphocytes % 10.9 L Monocytes % 8.9 Eosinophils % 1.5 Basophils % 0.5 Nucleated Red 0.0 Blood Cells % Immature 0.040 H Granulocytes # Neutrophils # 6.6 Lymphocytes # 0.9 Monocytes # 0.8 Eosinophils # 0.1 Basophils # 0.0 Nucleated Red 0.0 Blood Cells # Sodium Level 142 Potassium Level 4.7 Chloride Level 116 H Carbon Dioxide 10 L Level Anion Gap 16 H Blood Urea 67 H Nitrogen Creatinine 4.78 H Est Glomerular Filtrat Rate mL/min Glucose Level 114 Hemoglobin A1c 5.4 Calcium Level 9.0 Phosphorus Level 7.8 H Magnesium Level 1.9 Total Bilirubin 1.4 H Direct Bilirubin 0.00 Indirect 1.4 H Bilirubin Aspartate Amino 30 Transf (AST/SGOT ) Alanine 29 Aminotransferase (ALT/SGPT) Alkaline 128 H Phosphatase Total Protein 6.5 Albumin 3.3 Globulin 3.20 Albumin/Globulin 1.03 Ratio Thyroid 2.000 Stimulating Hormone (TSH) Ammonia 45 #H Medications Medication Current Medications Vancomycin HCl (Vanco Iv Per Pharmacy) VANCOMYCIN PER PHARMACY PER PROTOCOL XX ; Start 01/30/19 at 16:30 Piperacillin Sod/ Tazobactam Sod 50 ml @ 100 mls/hr Q8 IVPB Last administered on 01/31/19at 05:22; Admin Dose 100 MLS/HR; Start 01/30/19 at 22:00 Rifaximin (Xifaxan) 550 mg BID PO Last administered on 01/31/19at 08:50; Admin Dose 550 MG; Start 01/30/19 at 21:00 Heparin Sodium (Porcine) (Heparin (5000 Units/1ml)) 5,000 unit Q12 SC Last administered on 01/30/19at 21:22; Admin Dose 5,000 UNIT; Start 01/30/19 at 21:00 Lactulose (Enulose) 20 gm Q6H PO Last administered on 01/31/19at 05:06; Admin Dose 20 GM; Start 01/30/19 at 22:30 Norepinephrine 250 ml @ 1.875 mls/ hr TITRATE IV Last administered on 01/31/19at 08:53; Admin Dose 28.125 MLS/HR; Start 01/30/19 at 22:30 Miscellaneous Information (*Rx Drug Level Order Reminder*) RANDOMV VANCO LEVEL ... ONCE ONCE XX ; Start 02/01/19 at 05:00; Stop 02/01/19 at 05:01 DEBBIE CARRENO DO Jan 31, 2019 09:17
--- NOTE | 2019-01-31 10:05 | PN ---
Date/Time of Note Date/Time of Note DATE: 01/31/19 TIME: 09:59 Assessment/Plan VTE Prophylaxis Risk score (from Nsg)>0 risk: 6 SCD applied (from Nsg): Yes Pharmacological prophylaxis: heparin Lines/Catheters IV Catheter Type (from Nrsg): Central Line Central line still needed: Yes Urinary Cath still in place: Yes Reason Cath still needed: other (indicate) (AMS) Assessment/Plan Assessment/Plan 78 yo female with h/o cirrhosis who presents with obtundation and severe REVA #REVA - Likely due to decompensated cirrhosis. - Renal ultrasound prelim without obstruction - Presented with hyperkalemia, now resolved. - Continue albumin as needed. - Renal has been consulted for consideration of HD # Acute encephelopathy/obtundation: - Hepatic encephalopathy certainly high on differential, will continue lactulose/rifaxamin via NG tube - Head CT without acute pathology - Will continue empiric abx for possible sepsis, low threshold to discontinue in 2 days if cultures negative - Had paracentesis 2 weeks ago at [facility] negative for infection; will repeat today. #Cirrhosis; - Lactulose/rifaxamin as above - Hold diuretics and propranolol #Anemia - From cirrhosis, no clinical report of bleeding #Metabolic acidosis: - Likely from renal failure and respiratory alkalosis Continue ICU monitoring for vasopressors Result Diagram: 01/31/19 0405 01/31/19 0405 Subjective 24 Hr Interval Summary Free Text/Dictation No acute overnight events. Patient still on low dose continuous norepinephrine. Son Deny at bedside, updated him on plan. Plan for paracentesis later. Exam/Review of Systems Exam Vitals Vital Signs Date Temp Pulse Resp B/P (MAP) Pulse Ox O2 O2 Flow FiO2 Time Delivery Rate 01/31/19 73 12 74/64 (67) 100 Room Air 06:00 01/31/19 98.0 04:00 01/30/19 2 12:25 Intake and Output 01/30/19 01/30/19 01/31/19 1515:00 23:00 07:00 IntakeIntake Total 164.375 ml 276.50 ml OutputOutput Total 90 ml 140 ml BalanceBalance 74.375 ml 136.50 ml Exam Gen: Frail elderly woman in no acute distress. Neuro: Awake, following commands, nonverbal. No asterixis. HEENT: Dry mucous membranes Neck: R IJ line in place. Card: Regular rate and rhythm, no murmurs Pulm: Diminished bibasilar breath sounds. Abd: Distended, soft, nontender; umbilical hernia. Ext: Nonpitting LE edema. Results Results 24hrs Laboratory Tests Test 01/30/19 12:04 01/30/19 12:22 01/30/19 13:59 01/30/19 16:06 Bedside Glucose 88 White Blood 4.7 L Count Red Blood Count 2.52 L Hemoglobin 7.8 L Hematocrit 23.8 L Mean Corpuscular 94.4 Volume Mean Corpuscular 31.0 Hemoglobin Mean Corpuscular 32.8 Hemoglobin Dominique nt Red Cell 17.4 H Distribution Width Platelet Count 144 # Mean Platelet 11.2 H Volume Immature 0.400 Granulocytes % Neutrophils % 64.2 Lymphocytes % 21.1 Monocytes % 10.1 Eosinophils % 3.6 Basophils % 0.6 Nucleated Red 0.0 Blood Cells % Immature 0.020 Granulocytes # Neutrophils # 3.0 Lymphocytes # 1.0 Monocytes # 0.5 Eosinophils # 0.2 Basophils # 0.0 Nucleated Red 0.0 Blood Cells # Prothrombin Time 15.9 H Prothrombin Time 1.2 Ratio INR 1.26 International Normalized Ratio Activated 37.3 H Partial Thrombop last Time Sodium Level 133 L Potassium Level 6.0 H Chloride Level 114 H Carbon Dioxide 7 *L Level Anion Gap 12 Blood Urea 68 H Nitrogen Creatinine 5.50 H Est Glomerular Filtrat Rate mL/min Glucose Level 82 Calcium Level 8.2 L Total Bilirubin 0.6 Direct Bilirubin 0.00 Indirect 0.6 Bilirubin Aspartate Amino 31 Transf (AST/SGOT ) Alanine 35 Aminotransferase (ALT/SGPT) Alkaline 164 H Phosphatase Ammonia 237 #H Troponin I < 0.012 Total Protein 6.0 L Albumin 2.4 L Globulin 3.60 H Albumin/Globulin 0.66 Ratio POC Venous 2.6 *H 2.3 *H Lactate Test 01/30/19 18:15 01/30/19 18:18 01/30/19 18:20 01/30/19 18:25 Sodium Level 137 Potassium Level 5.4 H Chloride Level 118 H Carbon Dioxide 6 *L Level Anion Gap 13 Blood Urea 65 H Nitrogen Creatinine 4.96 H Est Glomerular Filtrat Rate mL/min Glucose Level 89 Calcium Level 8.9 Activated 42.2 H Partial Thrombop last Time Lactic Acid 2.3 *H Level Urine Random 131.99 Creatinine Urine Random 30 Sodium Urine Total 45.0 H 1+ H Protein Urine Color TESSIE Urine Clarity TURBID A Urine pH 5.0 Urine Specific 1.013 [place] Urine Ketones NEGATIVE Urine Nitrite NEGATIVE Urine Bilirubin NEGATIVE Urine NEGATIVE Urobilinogen Urine Leukocyte 3+ H Esterase Urine 34 H Microscopic RBC Urine > 182 H Microscopic WBC Urine Bacteria FEW A Urine Mucus FEW A Urine Yeast MANY A (Budding) Urine Hemoglobin 1+ H Urine Glucose NEGATIVE Test 01/30/19 18:59 01/30/19 23:00 01/31/19 04:05 01/31/19 04:57 Blood Gas Blood arterial Blood arterial Specimen Source Arterial Blood 01/30/2019 7:20: 01/30/2019 11:00 Date Drawn 33 PM :35 PM Arterial Blood 7.317 L 7.436 pH (Temp corrected) Arterial Blood 16.3 L 16.2 L pCO2 (Temp correct) Arterial Blood 130.0 H 112.7 H pO2 (Temp corrected) Arterial Blood 8.2 *L 10.7 L HCO3 Arterial Blood -16.0 L -11.7 L Base Excess Arterial Blood 97.7 97.3 Oxygen Saturatio n Ga Test N/A N/A Arterial Blood Right Brachial Right Brachial Gas Puncture Site Arterial 0.2 0.2 Blood Carboxyhem oglobin Arterial Blood 0.3 0.3 Methemoglobin Blood Gas A-a O2 0.2 L 17.6 Differential Oxyhemoglobin 97.2 96.8 Percent Blood Gas 37.0 37.0 Temperature Blood Gas ROOM AIR ROOM AIR Modality FiO2 21.0 21.0 Blood Gas C [facility] RN Critical Value Read Back Blood Gas UP UP Notified Whom Blood Gas 01/30/2019 7:40: 01/30/2019 11:08 Notified Time 47 PM :13 PM White Blood 8.5 # Count Red Blood Count 2.60 L Hemoglobin 8.0 L Hematocrit 23.7 L Mean Corpuscular 91.2 Volume Mean Corpuscular 30.8 Hemoglobin Mean Corpuscular 33.8 Hemoglobin Dominique nt Red Cell 17.4 H Distribution Width Platelet Count 185 # Mean Platelet 11.0 H Volume Immature 0.500 H Granulocytes % Neutrophils % 77.7 H Lymphocytes % 10.9 L Monocytes % 8.9 Eosinophils % 1.5 Basophils % 0.5 Nucleated Red 0.0 Blood Cells % Immature 0.040 H Granulocytes # Neutrophils # 6.6 Lymphocytes # 0.9 Monocytes # 0.8 Eosinophils # 0.1 Basophils # 0.0 Nucleated Red 0.0 Blood Cells # Sodium Level 142 Potassium Level 4.7 Chloride Level 116 H Carbon Dioxide 10 L Level Anion Gap 16 H Blood Urea 67 H Nitrogen Creatinine 4.78 H Est Glomerular Filtrat Rate mL/min Glucose Level 114 Hemoglobin A1c 5.4 Calcium Level 9.0 Phosphorus Level 7.8 H Magnesium Level 1.9 Total Bilirubin 1.4 H Direct Bilirubin 0.00 Indirect 1.4 H Bilirubin Aspartate Amino 30 Transf (AST/SGOT ) Alanine 29 Aminotransferase (ALT/SGPT) Alkaline 128 H Phosphatase Total Protein 6.5 Albumin 3.3 Globulin 3.20 Albumin/Globulin 1.03 Ratio Thyroid 2.000 Stimulating Hormone (TSH) Ammonia 45 #H Test 01/31/19 07:00 Blood Gas Blood arterial Specimen Source Arterial Blood 01/31/2019 9:00: Date Drawn 57 AM Arterial Blood 7.399 pH (Temp corrected) Arterial Blood 15.7 L pCO2 (Temp correct) Arterial Blood 131.9 H pO2 (Temp corrected) Arterial Blood 9.5 *L HCO3 Arterial Blood -13.3 L Base Excess Arterial Blood 97.6 Oxygen Saturatio n Ga Test N/A Arterial Blood Right Brachial Gas Puncture Site Arterial 0.3 Blood Carboxyhem oglobin Arterial Blood 0.3 Methemoglobin Oxyhemoglobin 97.0 Percent Blood Gas 37.0 Temperature Blood Gas ROOM AIR Modality FiO2 21.0 Blood Gas [place] R.N. Critical Value Read Back Blood Gas MDA Notified Whom Blood Gas 01/31/2019 9:15: Notified Time 37 AM Medications Medication Current Medications Vancomycin HCl (Vanco Iv Per Pharmacy) VANCOMYCIN PER PHARMACY PER PROTOCOL XX ; Start 01/30/19 at 16:30 Piperacillin Sod/ Tazobactam Sod 50 ml @ 100 mls/hr Q8 IVPB Last administered on 01/31/19at 05:22; Admin Dose 100 MLS/HR; Start 01/30/19 at 22:00 Rifaximin (Xifaxan) 550 mg BID PO Last administered on 01/31/19at 08:50; Admin Dose 550 MG; Start 01/30/19 at 21:00 Heparin Sodium (Porcine) (Heparin (5000 Units/1ml)) 5,000 unit Q12 SC Last administered on 01/30/19at 21:22; Admin Dose 5,000 UNIT; Start 01/30/19 at 21:00 Lactulose (Enulose) 20 gm Q6H PO Last administered on 01/31/19at 05:06; Admin Dose 20 GM; Start 01/30/19 at 22:30 Norepinephrine 250 ml @ 1.875 mls/ hr TITRATE IV Last administered on 01/31/19at 08:53; Admin Dose 28.125 MLS/HR; Start 01/30/19 at 22:30 Miscellaneous Information (*Rx Drug Level Order Reminder*) RANDOMV VANCO LEVEL ... ONCE ONCE XX ; Start 02/01/19 at 05:00; Stop 02/01/19 at 05:01 Sevelamer Carbonate (Renvela) 1,600 mg WITH MEALS PO ; Start 01/31/19 at 11:30 Midodrine (Proamatine) 5 mg Q8 PO ; Start 01/31/19 at 09:30 HARINDER LEE MD Jan 31, 2019 10:05
[2019-01-31] MEDS: SEVELAMER CARBONATE 800 MG TABLET PO SCH ×2 (10:12→14:26)
[2019-01-31] MEDS: MIDODRINE 5 MG TAB PO SCH ×3 (10:12→21:11)
[2019-01-31] MEDS ORDERED: LIDOCAINE 1% (MPF) 5 ML VIAL ONE (11:30)
[2019-02-01] VITALS (89 sets, daily range): BP systolic 80–115; BP diastolic 35–67; PULSE 61–77; RESP 10–19
[2019-02-01] MEDS: NORepinephrine 8MG/250 ML (PMX 250 ML IV SCH ×2 (04:20→19:26)
[2019-02-01] MEDS: LACTULOSE 30ML CUP PO SCH ×4 (04:33→23:19)
[2019-02-01] MEDS: PIPER-TAZO 2.25 GM (PMX) 50 ML IVPB SCH ×3 (05:43→21:38)
[2019-02-01] MEDS: MIDODRINE 5 MG TAB PO SCH ×3 (05:44→21:39)
[2019-02-01] MEDS: SEVELAMER CARBONATE 800 MG TABLET PO SCH ×3 (07:35→17:19)
[2019-02-01] MEDS: RIFAXIMIN 550 MG TAB PO SCH ×2 (09:34→20:56)
[2019-02-01] MEDS: HEPARIN 5,000 UNIT/1 ML VIAL SC SCH ×2 (09:43→20:57)
--- NOTE | 2019-02-01 10:18 | PN ---
Date/Time of Note Date/Time of Note DATE: 02/01/19 TIME: 10:17 Assessment/Plan VTE Prophylaxis Risk score (from Nsg)>0 risk: 8 SCD applied (from Nsg): Yes Pharmacological prophylaxis: other Lines/Catheters IV Catheter Type (from Nrsg): Central Line Central line still needed: Yes Urinary Cath still in place: Yes Reason Cath still needed: urinary retention Assessment/Plan Hospital Course late entry renal follow up HISTORY OF PRESENT ILLNESS: This is a 78-year-old female with a past medical history of cirrhosis, a history of ascites, history of hypertension, who presents to [facility] emergency room with altered mental status. The patient's history is obtained by reviewing medical records and speaking to hospital staff. The patient apparently was noted over the last several days to have decreased mental capacity, decreased oral intake, increased lethargy. As a result, the patient was brought in to the emergency room. Upon arrival, patient had laboratory data drawn, which showed a BUN of 68, creatinine 5.5, a potassium level of 7 and a bicarbonate of 7. The patient also had a renal ultrasound which showed echogenic kidneys consistent with medical renal disease, no evidence of obstruction and moderate amount of ascites. The patient in the emergency room was given calcium gluconate, Kayexalate, and sodium bicarbonate. The patient was also given IV fluids and antibiotic therapy. In terms of patient's renal history, the patient's previous baseline creatinine was about 0.7 mg/dL in 09/2018. The patient had no reports of any hemoptysis, hematemesis or hematochezia. she is now in ICU for septic shock and ARF BP is stable with pressors low uop noted discussed with family and Dr Temple PHYSICAL EXAMINATION: HEENT: Head is normocephalic. NECK: Supple. HEART: Regular rate. LUNGS: Show diminished breath sounds at the base. ABDOMEN: Soft, nontender to palpation. Positive umbilical hernia. EXTREMITIES: Negative for clubbing, cyanosis. Positive edema. DERMATOLOGIC: No rashes. MUSCULOSKELETAL: No joint effusions. NEUROLOGIC: The patient is obtunded. time of alf: 37 min ASSESSMENT AND PLAN: This is a 78-year-old female who presents with: 1. Oliguric acute kidney injury with a previous baseline creatinine of 0.7 mg/dL in 09/2018. Etiology of acute kidney injury is tubular injury due to hypotension and septic shock. will add midodrine to support BP. continue IVF. Continue antibiotic therapy. no indication for HD yet. will continue renvela for hyperphos 2. Hyperkalemia. due to acidosis and ARF. resolved 3. Acidosis presumed metabolic secondary to acute kidney injury and lactic acidemia. Ph is actually at target. no bicarb at this time 4. Hyponatremia secondary to acute kidney injury causing decreased free water urinary excretion. We will continue to monitor. 5. Lactic acidosis. Etiology may be secondary to hemodynamics, sepsis. Continue to trend lactic acid levels. Continue current medical management, supportive care, IV fluids, antibiotic therapy. 6. Systemic inflammatory response syndrome, possible sepsis, possibly from spontaneous bacterial peritonitis. Continue current medical management. Continue antibiotic therapy, continue IV fluids. We would consider pressor support if necessary to maintain MAP of 65. 7. Acute encephalopathy, etiology is multifactorial, possibly due to hepatic encephalopathy, possible uremia. Continue current medical management, monitor closely. 8. History of decompensated cirrhosis. The patient is on Lactulose, rifaximin and propranolol. Continue to monitor. 9. History of anemia. Check an iron panel, stool occult blood. Result Diagram: 02/01/19 0449 02/01/19 0449 Results 24hrs Laboratory Tests Test 01/31/19 11:10 02/01/19 04:49 Body Fluid Type ABDOMINAL FLUID Body Fluid Volume 1025.0 Body Fluid Color YELLOW Body Fluid Appearance CLEAR Body Fluid WBC 51 Body Fluid RBC (Auto) < 2000 Body Fluid Polynuclear WBCs (%) 19.6 Body Fluid Mononuclear Cells % Auto 80.4 Body Fluid Lactate Dehydrogenase 125 White Blood Count 8.7 Red Blood Count 2.45 L Hemoglobin 7.7 L Hematocrit 23.2 L Mean Corpuscular Volume 94.7 Mean Corpuscular Hemoglobin 31.4 Mean Corpuscular Hemoglobin Concent 33.2 Red Cell Distribution Width 17.5 H Platelet Count 161 Mean Platelet Volume 11.0 H Immature Granulocytes % 0.500 H Neutrophils % 73.5 Lymphocytes % 12.3 L Monocytes % 11.0 Eosinophils % 2.0 Basophils % 0.7 Nucleated Red Blood Cells % 0.0 Immature Granulocytes # 0.040 H Neutrophils # 6.4 Lymphocytes # 1.1 Monocytes # 1.0 H Eosinophils # 0.2 Basophils # 0.1 Nucleated Red Blood Cells # 0.0 Sodium Level 148 H Potassium Level 4.4 Chloride Level 125 H Carbon Dioxide Level 9 *L Anion Gap 14 H Blood Urea Nitrogen 74 H Creatinine 4.32 H Est Glomerular Filtrat Rate mL/min Glucose Level 133 Calcium Level 9.1 Phosphorus Level 7.4 H Magnesium Level 1.9 Total Bilirubin 1.2 Direct Bilirubin 0.00 Indirect Bilirubin 1.2 H Aspartate Amino Transf (AST/SGOT) 27 Alanine Aminotransferase (ALT/SGPT) 27 Alkaline Phosphatase 99 Total Protein 6.0 L Albumin 3.0 L Globulin 3.00 Albumin/Globulin Ratio 1.00 Random Vancomycin Level 8.5 Exam/Review of Systems Exam Vitals Vital Signs Date Temp Pulse Resp B/P (MAP) Pulse Ox O2 O2 Flow FiO2 Time Delivery Rate 02/01/19 68 10 106/47 100 06:45 (66) 02/01/19 Room Air 05:00 02/01/19 98.4 04:00 01/30/19 2 12:25 Intake and Output 01/31/19 01/31/19 02/01/19 1515:00 23:00 07:00 IntakeIntake Total 545.000 ml 335.000 ml 187.500 ml OutputOutput Total 84 ml 130 ml 140 ml BalanceBalance 461.000 ml 205.000 ml 47.500 ml Results Results 24hrs Laboratory Tests Test 01/31/19 11:10 02/01/19 04:49 Body Fluid Type ABDOMINAL FLUID Body Fluid Volume 1025.0 Body Fluid Color YELLOW Body Fluid Appearance CLEAR Body Fluid WBC 51 Body Fluid RBC (Auto) < 2000 Body Fluid Polynuclear WBCs (%) 19.6 Body Fluid Mononuclear Cells % Auto 80.4 Body Fluid Lactate Dehydrogenase 125 White Blood Count 8.7 Red Blood Count 2.45 L Hemoglobin 7.7 L Hematocrit 23.2 L Mean Corpuscular Volume 94.7 Mean Corpuscular Hemoglobin 31.4 Mean Corpuscular Hemoglobin Concent 33.2 Red Cell Distribution Width 17.5 H Platelet Count 161 Mean Platelet Volume 11.0 H Immature Granulocytes % 0.500 H Neutrophils % 73.5 Lymphocytes % 12.3 L Monocytes % 11.0 Eosinophils % 2.0 Basophils % 0.7 Nucleated Red Blood Cells % 0.0 Immature Granulocytes # 0.040 H Neutrophils # 6.4 Lymphocytes # 1.1 Monocytes # 1.0 H Eosinophils # 0.2 Basophils # 0.1 Nucleated Red Blood Cells # 0.0 Sodium Level 148 H Potassium Level 4.4 Chloride Level 125 H Carbon Dioxide Level 9 *L Anion Gap 14 H Blood Urea Nitrogen 74 H Creatinine 4.32 H Est Glomerular Filtrat Rate mL/min Glucose Level 133 Calcium Level 9.1 Phosphorus Level 7.4 H Magnesium Level 1.9 Total Bilirubin 1.2 Direct Bilirubin 0.00 Indirect Bilirubin 1.2 H Aspartate Amino Transf (AST/SGOT) 27 Alanine Aminotransferase (ALT/SGPT) 27 Alkaline Phosphatase 99 Total Protein 6.0 L Albumin 3.0 L Globulin 3.00 Albumin/Globulin Ratio 1.00 Random Vancomycin Level 8.5 Medications Medication Current Medications Vancomycin HCl (Vanco Iv Per Pharmacy) VANCOMYCIN PER PHARMACY PER PROTOCOL XX ; Start 01/30/19 at 16:30 Piperacillin Sod/ Tazobactam Sod 50 ml @ 100 mls/hr Q8 IVPB Last administered on 02/01/19at 05:43; Admin Dose 100 MLS/HR; Start 01/30/19 at 22:00 Rifaximin (Xifaxan) 550 mg BID PO Last administered on 02/01/19at 09:34; Admin Dose 550 MG; Start 01/30/19 at 21:00 Heparin Sodium (Porcine) (Heparin (5000 Units/1ml)) 5,000 unit Q12 SC Last administered on 02/01/19at 09:43; Admin Dose 5,000 UNIT; Start 01/30/19 at 21:00 Lactulose (Enulose) 20 gm Q6H PO Last administered on 02/01/19at 04:33; Admin Dose 20 GM; Start 01/30/19 at 22:30 Norepinephrine 250 ml @ 1.875 mls/ hr TITRATE IV Last administered on 02/01/19at 04:20; Admin Dose 28.125 MLS/HR; Start 01/30/19 at 22:30 Sevelamer Carbonate (Renvela) 1,600 mg WITH MEALS PO ; Start 01/31/19 at 11:30 Midodrine (Proamatine) 5 mg Q8 PO Last administered on 02/01/19at 05:44; Admin Dose 5 MG; Start 01/31/19 at 09:30 Vancomycin/Sodium Chloride 250 ml @ 125 mls/hr ONCE IVPB ; Start 02/01/19 at 11:00; Stop 3/17/19 at 23:59 DEBBIE CARRENO DO Feb 01, 2019 10:18
[2019-02-01] MEDS ORDERED: VANCOMYCIN 750 MG (PMX) 250 ML IVPB SCH (11:00)
--- NOTE | 2019-02-01 11:49 | CONS ---
Assessment/Plan Assessment/Plan Hospital Course (Demo Recall) Assessment: Hepatic encephalopathy/ Liver cirrhosis with ascites/post paracentesis Acute renal failure/rule out hepatorenal syndrome Anemia likely multifactorial Plan: T NG tube and start diet Continue lactulose and rifaximin Continue antibiotics Nephrology care Monitor H&H Transfuse for hemoglobin less than 7.5 Consultation Date/Type/Reason Admit Date/Time Date/Time of Note DATE: 02/01/19 TIME: 11:47 Hx of Present Illness Course reviewed with nursing staff. Family at bedside. She is fully alert and oriented. Post paracentesis with fluid negative for SBP and improvement in abdominal distention NG tube will be removed. Diet will be advanced. We will continue rifaximin and lactulose. Continue nephrology management of acute renal failure. Past Medical History Home Meds Active Scripts Zinc Sulfate* (Zinc Sulfate*) 220 Mg Cap, 220 MG PO DAILY for 30 Days, #30 CAP 6 Refills Prov:MANAS JACKSON MD 10/02/18 Lactulose* (Lactulose*) 20 Gm/30 Ml Solution, 20 GM PO BID for 30 Days, #1 BOTTLE 6 Refills Prov:MANAS JACKSON MD 10/02/18 Reported Medications Omeprazole* (Omeprazole*) 20 Mg Capsule.dr, 20 MG PO AC BREAKFAST, #30 CAP 09/25/18 Furosemide* (Furosemide*) 40 Mg Tablet, 40 MG PO DAILY, TAB 09/25/18 Propranolol Hcl* (Propranolol Hcl*) 10 Mg Tablet, 10 MG PO BID, TAB 09/25/18 Spironolactone* (Aldactone*) 50 Mg Tablet, 100 MG PO DAILY, #30 TAB 09/25/18 Medications Current Medications Vancomycin HCl (Vanco Iv Per Pharmacy) VANCOMYCIN PER PHARMACY PER PROTOCOL XX ; Start 01/30/19 at 16:30 Piperacillin Sod/ Tazobactam Sod 50 ml @ 100 mls/hr Q8 IVPB Last administered on 02/01/19at 05:43; Admin Dose 100 MLS/HR; Start 01/30/19 at 22:00 Rifaximin (Xifaxan) 550 mg BID PO Last administered on 02/01/19at 09:34; Admin Dose 550 MG; Start 01/30/19 at 21:00 Heparin Sodium (Porcine) (Heparin (5000 Units/1ml)) 5,000 unit Q12 SC Last administered on 02/01/19at 09:43; Admin Dose 5,000 UNIT; Start 01/30/19 at 21:00 Lactulose (Enulose) 20 gm Q6H PO Last administered on 02/01/19at 04:33; Admin Dose 20 GM; Start 01/30/19 at 22:30 Norepinephrine 250 ml @ 1.875 mls/ hr TITRATE IV Last administered on 02/01/19at 04:20; Admin Dose 28.125 MLS/HR; Start 01/30/19 at 22:30 Sevelamer Carbonate (Renvela) 1,600 mg WITH MEALS PO ; Start 01/31/19 at 11:30 Midodrine (Proamatine) 5 mg Q8 PO Last administered on 02/01/19at 05:44; Admin Dose 5 MG; Start 01/31/19 at 09:30 Vancomycin/Sodium Chloride 250 ml @ 125 mls/hr ONCE IVPB ; Start 02/01/19 at 11:00; Stop 02/01/19 at 23:59 Allergies: Coded Allergies: No Known Allergy (Unverified , 01/30/19) Past Surgical History Past Surgical Hx: no surgical history Social History Alcohol Use: none Smoking Status: Former smoker Drug Use: none Exam/Review of Systems Exam Vitals Vital Signs Date Temp Pulse Resp B/P (MAP) Pulse Ox O2 O2 Flow FiO2 Time Delivery Rate 02/01/19 69 12 103/50 100 Nasal 3.0 10:30 (67) Cannula 02/01/19 97.9 08:00 Intake and Output 01/31/19 01/31/19 02/01/19 1515:00 23:00 07:00 IntakeIntake Total 545.000 ml 335.000 ml 206.250 ml OutputOutput Total 84 ml 130 ml 140 ml BalanceBalance 461.000 ml 205.000 ml 66.250 ml Results Result Diagram: 02/01/19 0449 02/01/19 0449 Results 24hrs Laboratory Tests Test 02/01/19 04:49 White Blood Count 8.7 Red Blood Count 2.45 L Hemoglobin 7.7 L Hematocrit 23.2 L Mean Corpuscular Volume 94.7 Mean Corpuscular Hemoglobin 31.4 Mean Corpuscular Hemoglobin Concent 33.2 Red Cell Distribution Width 17.5 H Platelet Count 161 Mean Platelet Volume 11.0 H Immature Granulocytes % 0.500 H Neutrophils % 73.5 Lymphocytes % 12.3 L Monocytes % 11.0 Eosinophils % 2.0 Basophils % 0.7 Nucleated Red Blood Cells % 0.0 Immature Granulocytes # 0.040 H Neutrophils # 6.4 Lymphocytes # 1.1 Monocytes # 1.0 H Eosinophils # 0.2 Basophils # 0.1 Nucleated Red Blood Cells # 0.0 Sodium Level 148 H Potassium Level 4.4 Chloride Level 125 H Carbon Dioxide Level 9 *L Anion Gap 14 H Blood Urea Nitrogen 74 H Creatinine 4.32 H Est Glomerular Filtrat Rate mL/min Glucose Level 133 Calcium Level 9.1 Phosphorus Level 7.4 H Magnesium Level 1.9 Total Bilirubin 1.2 Direct Bilirubin 0.00 Indirect Bilirubin 1.2 H Aspartate Amino Transf (AST/SGOT) 27 Alanine Aminotransferase (ALT/SGPT) 27 Alkaline Phosphatase 99 Total Protein 6.0 L Albumin 3.0 L Globulin 3.00 Albumin/Globulin Ratio 1.00 Random Vancomycin Level 8.5 Medications Medication Current Medications Vancomycin HCl (Vanco Iv Per Pharmacy) VANCOMYCIN PER PHARMACY PER PROTOCOL XX ; Start 01/30/19 at 16:30 Piperacillin Sod/ Tazobactam Sod 50 ml @ 100 mls/hr Q8 IVPB Last administered on 02/01/19 05:43; Admin Dose 100 MLS/HR; Start 01/30/19 at 22:00 Rifaximin (Xifaxan) 550 mg BID PO Last administered on 02/01/19 09:34; Admin Dose 550 MG; Start 01/30/19 at 21:00 Heparin Sodium (Porcine) (Heparin (5000 Units/1ml)) 5,000 unit Q12 SC Last administered on 02/01/19 09:43; Admin Dose 5,000 UNIT; Start 01/30/19 at 21:00 Lactulose (Enulose) 20 gm Q6H PO Last administered on 02/01/19 04:33; Admin Dose 20 GM; Start 01/30/19 at 22:30 Norepinephrine 250 ml @ 1.875 mls/ hr TITRATE IV Last administered on 02/01/19 04:20; Admin Dose 28.125 MLS/HR; Start 01/30/19 at 22:30 Sevelamer Carbonate (Renvela) 1,600 mg WITH MEALS PO ; Start 01/31/19 at 11:30 Midodrine (Proamatine) 5 mg Q8 PO Last administered on 02/01/19at 05:44; Admin Dose 5 MG; Start 01/31/19 at 09:30 Vancomycin/Sodium Chloride 250 ml @ 125 mls/hr ONCE IVPB ; Start 02/01/19 at 11:00; Stop 02/01/19 at 23:59 KENAN LAI MD Feb 01, 2019 11:49
--- NOTE | 2019-02-01 11:50 | PN ---
Date/Time of Note Date/Time of Note DATE: 02/01/19 TIME: 11:49 Assessment/Plan VTE Prophylaxis Risk score (from Ns)>0 risk: 8 SCD applied (from [facility]): Yes Pharmacological prophylaxis: NA/contraindicated Pharm contraindication: blood coag disorder Lines/Catheters IV C[facility]ter Type (from [facility] Central Line Central line still needed: Yes Urinary Cath still in place: Yes Reason Cath still needed: other (indicate) (Monitor output) Assessment/Plan Hospital Course Assessment: Hepatic encephalopathy/ Liver cirrhosis with ascites/post paracentesis Acute renal failure/rule out hepatorenal syndrome Anemia likely multifactorial Plan: T NG tube and start diet Continue lactulose and rifaximin Continue antibiotics Nephrology care Monitor H&H Transfuse for hemoglobin less than 7.5 Result Diagram: 02/01/1944802/01/19448 Results 24hrs Laboratory Tests Test 02/01/19 04:49 White Blood Count 8.7 Red Blood Count 2.45 L Hemoglobin 7.7 L Hematocrit 23.2 L Mean Corpuscular Volume 94.7 Mean Corpuscular Hemoglobin 31.4 Mean Corpuscular Hemoglobin Concent 33.2 Red Cell Distribution Width 17.5 H Platelet Count 161 Mean Platelet Volume 11.0 H Immature Granulocytes % 0.500 H Neutrophils % 73.5 Lymphocytes % 12.3 L Monocytes % 11.0 Eosinophils % 2.0 Basophils % 0.7 Nucleated Red Blood Cells % 0.0 Immature Granulocytes # 0.040 H Neutrophils # 6.4 Lymphocytes # 1.1 Monocytes # 1.0 H Eosinophils # 0.2 Basophils # 0.1 Nucleated Red Blood Cells # 0.0 Sodium Level 148 H Potassium Level 4.4 Chloride Level 125 H Carbon Dioxide Level 9 *L Anion Gap 14 H Blood Urea Nitrogen 74 H Creatinine 4.32 H Est Glomerular Filtrat Rate mL/min Glucose Level 133 Calcium Level 9.1 Phosphorus Level 7.4 H Magnesium Level 1.9 Total Bilirubin 1.2 Direct Bilirubin 0.00 Indirect Bilirubin 1.2 H Aspartate Amino Transf (AST/SGOT) 27 Alanine Aminotransferase (ALT/SGPT) 27 Alkaline Phosphatase 99 Total Protein 6.0 L Albumin 3.0 L Globulin 3.00 Albumin/Globulin Ratio 1.00 Random Vancomycin Level 8.5 Subjective 24 Hr Interval Summary Free Text/Dictation Course reviewed with nursing staff. Family at bedside. She is fully alert and oriented. Post paracentesis with fluid negative for SBP and improvement in abdominal distention NG tube will be removed. Diet will be advanced. We will continue rifaximin and lactulose. Continue nephrology management of acute renal failure. Exam/Review of Systems Exam Vitals Vital Signs Date Temp Pulse Resp B/P (MAP) Pulse Ox O2 O2 Flow FiO2 Time Delivery Rate 02/01/19 69 12 103/50 100 Nasal 3.0 10:30 (67) Cannula 02/01/19 97.9 08:00 Intake and Output 01/31/19 01/31/19 02/01/19 1515:00 23:00 07:00 IntakeIntake Total 545.000 ml 335.000 ml 206.250 ml OutputOutput Total 84 ml 130 ml 140 ml BalanceBalance 461.000 ml 205.000 ml 66.250 ml Exam PHYSICAL EXAMINATION: GENERAL: Well developed, well nourished, alert & oriented x 3, in no acute distress SKIN: No lesions, no stigmata chronic liver disease, no evidence of bleeding diathesis LYMPHATIC: No palpable lymphadenopathy. HEAD: Normocephalic, atraumatic, no tenderness. EYES: Pupils equal reactive to light and accommodation, full extraocular movements, sclera clear, non-icteric, no discharge. EARS/NOSE AND THROAT: Ears normal, nose normal, oropharynx normal, oral membranes well hydrated without lesions. NECK: Supple, no masses, thyroid normal, JVP within normal limits, carotids normal without bruits. CHEST: Inspection within normal limits. CARDIOVASCULAR: Heart: Regular rate and rhythm, no murmurs, gallops or rubs. Peripheral pulses present within normal limits, no cyanosis, clubbing or edemas. No pulsatile abdominal mass RESPIRATORY: Lungs clear to auscultation and percussion, no wheezing, no rubs GASTROINTESTINAL AND LIVER: Abdomen: Soft, non tenderness, mildly distended, no hernias, no masses, no organomegaly, moderate ascites, no guarding, no rebound tenderness, normoactive bowel sounds. Rectal: Deferred. [no perianal disease, no masses, stool normal, occult blood negative.] GENITOURINARY: [Female genitalia within normal limits.] EXTREMITIES: No cyanosis, clubbing. 2+ pitting edema. Results Results 24hrs Laboratory Tests Test 02/01/19 04:49 White Blood Count 8.7 Red Blood Count 2.45 L Hemoglobin 7.7 L Hematocrit 23.2 L Mean Corpuscular Volume 94.7 Mean Corpuscular Hemoglobin 31.4 Mean Corpuscular Hemoglobin Concent 33.2 Red Cell Distribution Width 17.5 H Platelet Count 161 Mean Platelet Volume 11.0 H Immature Granulocytes % 0.500 H Neutrophils % 73.5 Lymphocytes % 12.3 L Monocytes % 11.0 Eosinophils % 2.0 Basophils % 0.7 Nucleated Red Blood Cells % 0.0 Immature Granulocytes # 0.040 H Neutrophils # 6.4 Lymphocytes # 1.1 Monocytes # 1.0 H Eosinophils # 0.2 Basophils # 0.1 Nucleated Red Blood Cells # 0.0 Sodium Level 148 H Potassium Level 4.4 Chloride Level 125 H Carbon Dioxide Level 9 *L Anion Gap 14 H Blood Urea Nitrogen 74 H Creatinine 4.32 H Est Glomerular Filtrat Rate mL/min Glucose Level 133 Calcium Level 9.1 Phosphorus Level 7.4 H Magnesium Level 1.9 Total Bilirubin 1.2 Direct Bilirubin 0.00 Indirect Bilirubin 1.2 H Aspartate Amino Transf (AST/SGOT) 27 Alanine Aminotransferase (ALT/SGPT) 27 Alkaline Phosphatase 99 Total Protein 6.0 L Albumin 3.0 L Globulin 3.00 Albumin/Globulin Ratio 1.00 Random Vancomycin Level 8.5 Medications Medication Current Medications Vancomycin HCl (Vanco Iv Per Pharmacy) VANCOMYCIN PER PHARMACY PER PROTOCOL XX ; Start 01/30/19 at 16:30 Piperacillin Sod/ Tazobactam Sod 50 ml @ 100 mls/hr Q8 IVPB Last administered on 02/01/19at 05:43; Admin Dose 100 MLS/HR; Start 01/30/19 at 22:00 Rifaximin (Xifaxan) 550 mg BID PO Last administered on 02/01/19at 09:34; Admin Dose 550 MG; Start 01/30/19 at 21:00 Heparin Sodium (Porcine) (Heparin (5000 Units/1ml)) 5,000 unit Q12 SC Last administered on 02/01/19at 09:43; Admin Dose 5,000 UNIT; Start 01/30/19 at 21:00 Lactulose (Enulose) 20 gm Q6H PO Last administered on 02/01/19at 04:33; Admin Dose 20 GM; Start 01/30/19 at 22:30 Norepinephrine 250 ml @ 1.875 mls/ hr TITRATE IV Last administered on 02/01/19at 04:20; Admin Dose 28.125 MLS/HR; Start 01/30/19 at 22:30 Sevelamer Carbonate (Renvela) 1,600 mg WITH MEALS PO ; Start 01/31/19 at 11:30 Midodrine (Proamatine) 5 mg Q8 PO Last administered on 02/01/19at 05:44; Admin Dose 5 MG; Start 01/31/19 at 09:30 Vancomycin/Sodium Chloride 250 ml @ 125 mls/hr ONCE IVPB ; Start 02/01/19 at 11:00; Stop 02/01/19 at 23:59 KENAN LAI MD Feb 01, 2019 11:50
--- NOTE | 2019-02-01 13:46 | PN ---
Date/Time of Note Date/Time of Note DATE: 02/01/19 TIME: 13:43 Assessment/Plan VTE Prophylaxis Risk score (from Ns)>0 risk: 8 SCD applied (from Ns): Yes Pharmacological prophylaxis: NA/contraindicated Pharm contraindication: low risk/ambulating Lines/Catheters IV Catheter Type (from Nrsg): Central Line Central line still needed: Yes Urinary Cath still in place: Yes Reason Cath still needed: other (indicate) (UOP monitoring) Assessment/Plan Assessment/Plan 78 yo female with h/o cirrhosis who presents with obtundation and severe REVA #REVA - Likely due to decompensated cirrhosis. - Renal ultrasound prelim without obstruction - Presented with hyperkalemia, now resolved. - Continue albumin as needed. - Renal has been consulted for consideration of HD # Acute encephelopathy/obtundation: resolved - Hepatic encephalopathy certainly high on differential, will continue lactulose/rifaxamin via NG tube - Head CT without acute pathology - Will continue empiric abx for possible sepsis, low threshold to discontinue if cultures negative - Had paracentesis 2 weeks ago at [facility] negative for infection - Repeat paracentesis 01/31 negative for SBP #Cirrhosis; - Lactulose/rifaxamin as above - Hold diuretics and propranolol #Anemia - From cirrhosis, no clinical report of bleeding #Metabolic acidosis: - Likely from renal failure and respiratory alkalosis Continue ICU monitoring for vasopressors Result Diagram: 02/01/19 0449 02/01/199 Subjective 24 Hr Interval Summary Free Text/Dictation No acute overnight events. Got paracentesis yesterday. Patient much more awake today. According to , near baseline mental status. Still requiring norepinephrine. Tolerating clear liquids. Exam/Review of Systems Exam Vitals Vital Signs Date Temp Pulse Resp B/P (MAP) Pulse Ox O2 O2 Flow FiO2 Time Delivery Rate 02/01/19 69 12 103/50 100 Nasal 3.0 10:30 (67) Cannula 02/01/19 97.9 08:00 Intake and Output 01/31/19 01/31/19 02/01/19 1515:00 23:00 07:00 IntakeIntake Total 545.000 ml 335.000 ml 206.250 ml OutputOutput Total 84 ml 130 ml 140 ml BalanceBalance 461.000 ml 205.000 ml 66.250 ml Exam Gen: Frail elderly woman in no acute distress. Neuro: Awake, following commands. No asterixis. HEENT: Dry mucous membranes Neck: R IJ line in place. Card: Regular rate and rhythm, no murmurs Pulm: Diminished bibasilar breath sounds. Abd: Distended, soft, nontender; umbilical hernia. Ext: Nonpitting LE edema. Results Results 24hrs Laboratory Tests Test 02/01/19 04:49 White Blood Count 8.7 Red Blood Count 2.45 L Hemoglobin 7.7 L Hematocrit 23.2 L Mean Corpuscular Volume 94.7 Mean Corpuscular Hemoglobin 31.4 Mean Corpuscular Hemoglobin Concent 33.2 Red Cell Distribution Width 17.5 H Platelet Count 161 Mean Platelet Volume 11.0 H Immature Granulocytes % 0.500 H Neutrophils % 73.5 Lymphocytes % 12.3 L Monocytes % 11.0 Eosinophils % 2.0 Basophils % 0.7 Nucleated Red Blood Cells % 0.0 Immature Granulocytes # 0.040 H Neutrophils # 6.4 Lymphocytes # 1.1 Monocytes # 1.0 H Eosinophils # 0.2 Basophils # 0.1 Nucleated Red Blood Cells # 0.0 Sodium Level 148 H Potassium Level 4.4 Chloride Level 125 H Carbon Dioxide Level 9 *L Anion Gap 14 H Blood Urea Nitrogen 74 H Creatinine 4.32 H Est Glomerular Filtrat Rate mL/min Glucose Level 133 Calcium Level 9.1 Phosphorus Level 7.4 H Magnesium Level 1.9 Total Bilirubin 1.2 Direct Bilirubin 0.00 Indirect Bilirubin 1.2 H Aspartate Amino Transf (AST/SGOT) 27 Alanine Aminotransferase (ALT/SGPT) 27 Alkaline Phosphatase 99 Total Protein 6.0 L Albumin 3.0 L Globulin 3.00 Albumin/Globulin Ratio 1.00 Random Vancomycin Level 8.5 Medications Medication Current Medications Vancomycin HCl (Vanco Iv Per Pharmacy) VANCOMYCIN PER PHARMACY PER PROTOCOL XX ; Start 01/30/19 at 16:30 Piperacillin Sod/ Tazobactam Sod 50 ml @ 100 mls/hr Q8 IVPB Last administered on 02/01/19at 05:43; Admin Dose 100 MLS/HR; Start 01/30/19 at 22:00 Rifaximin (Xifaxan) 550 mg BID PO Last administered on 02/01/19at 09:34; Admin Dose 550 MG; Start 01/30/19 at 21:00 Heparin Sodium (Porcine) (Heparin (5000 Units/1ml)) 5,000 unit Q12 SC Last administered on 02/01/19 09:43; Admin Dose 5,000 UNIT; Start 01/30/19 at 21:00 Lactulose (Enulose) 20 gm Q6H PO Last administered on 02/01/19 12:14; Admin Dose 20 GM; Start 01/30/19 at 22:30 Norepinephrine 250 ml @ 1.875 mls/ hr TITRATE IV Last administered on 02/01/19 04:20; Admin Dose 28.125 MLS/HR; Start 01/30/19 at 22:30 Sevelamer Carbonate (Renvela) 1,600 mg WITH MEALS PO Last administered on 02/01/19 12:14; Admin Dose 1,600 MG; Start 01/31/19 at 11:30 Midodrine (Proamatine) 5 mg Q8 PO Last administered on 02/01/19 05:44; Admin Dose 5 MG; Start 01/31/19 at 09:30 Vancomycin/Sodium Chloride 250 ml @ 125 mls/hr ONCE IVPB Last administered on 02/01/19 12:12; Admin Dose 125 MLS/HR; Start 02/01/19 at 11:00; Stop 02/01/19 at 23:59 HARINDER LEE MD Feb 01, 2019 13:46
[2019-02-02] VITALS (89 sets, daily range): BP systolic 76–140; BP diastolic 36–116; PULSE 55–74; RESP 10–24
[2019-02-02] MEDS: LACTULOSE 30ML CUP PO SCH ×3 (04:36→20:19)
[2019-02-02] MEDS: MIDODRINE 5 MG TAB PO SCH ×3 (05:21→21:05)
[2019-02-02] MEDS: PIPER-TAZO 2.25 GM (PMX) 50 ML IVPB SCH ×3 (05:21→21:05)
[2019-02-02] MEDS: SEVELAMER CARBONATE 800 MG TABLET PO SCH ×3 (07:58→17:13)
--- NOTE | 2019-02-02 08:12 | PN ---
DATE: 02/02/2019 SUBJECTIVE: The patient remains on pressor support, Levophed. Urinary output has been marginal, but improving. No other acute events noted. No hemoptysis, hematemesis or hematochezia. OBJECTIVE: VITAL SIGNS: Blood pressure is 98/43, respirations 20, pulse 58, temperature 98.6. I's and O's have been reviewed. HEENT: Head is normocephalic. NECK: Supple. HEART: Regular rate. LUNGS: Show diminished breath sounds at the base. ABDOMEN: Soft, nontender to palpation. No rebound or guarding. EXTREMITIES: Negative for clubbing, cyanosis, no edema. DERMATOLOGIC: No rashes. MUSCULOSKELETAL: No joint effusion. NEUROLOGIC: No change in exam. MEDICATIONS: Reviewed. LABORATORY DATA: Shows a sodium of 146, potassium 3.7, chloride 120, BUN 68, creatinine 4.06. White count 7.3, hemoglobin 7.5, platelet count is 103. IMAGING STUDIES: Reviewed. ASSESSMENT AND PLAN: 1. Oliguric acute kidney injury with previous baseline creatinine of 0.7 mg/dL. Etiology of acute k idney injury is secondary to hemodynamics, volume depletion, possible tubular injury. The patient's renal function has been improving with pressor support, IV fluids, antibiotic therapy. Recommendatio n at this point is to continue current medical management. Continue Levophed to maintain MAP of 65. We will start the patient on IV albumin and volume expansion. We will continue current treatment pl an, supportive care, renally dose all medicines. Please note that diagnosis of hepatorenal syndrome is one of exclusion and cannot be made at this time. There is no immediate need for renal replacemen t therapy at this time. 2. Hyperkalemia, improved. Continue current medical management. Continue low-potassium diet and mo nitor. 3. Metabolic acidosis, etiology is secondary to acute kidney injury. We will start the patient on B icitra. We will continue to monitor bicarbonate levels. 4. Hypernatremia. The patient has a free water deficit of approximately 2 liters. We will encourag e free water intake. We will start the patient on hypertonic fluid. 5. Lactic acidosis secondary to septic shock, improving. Continue to monitor. 6. Septic shock, etiology is felt to be secondary to spontaneous bacterial peritonitis. Continue cu rrent medical measures, continue antibiotic therapy, continue pressor support, continue antibiotics, and continue volume expansion. 7. Acute encephalopathy, etiology toxic metabolic, improving. Continue to monitor. 8. Decompensated cirrhosis. Continue current medical management. 9. Anemia. Continue to monitor hemoglobin and hematocrit levels. Please note, I spent over 30 minutes of critical care time with this patient. Dictated By: ZOË FUCHS DO NR/NTS Conf#: [id number] DID#: [id number] CC: ALICIA SHARP MD; ZOË FUCHS DO;*EndCC*
[2019-02-02] MEDS: SOD CHLORIDE 0.45% 1,000 ML IV SCH (08:15)
[2019-02-02] MEDS: ALBUMIN HUMAN 25% 100 ML IV SCH ×2 (08:17→16:06)
[2019-02-02] MEDS: RIFAXIMIN 550 MG TAB PO SCH ×2 (08:17→20:19)
[2019-02-02] MEDS: CITRIC ACID/NA CITRATE 30 ML CUP PO SCH ×3 (08:35→21:05)
[2019-02-02] MEDS: HEPARIN 5,000 UNIT/1 ML VIAL SC SCH ×2 (08:40→20:20)
--- NOTE | 2019-02-02 12:44 | PN ---
Date/Time of Note Date/Time of Note DATE: 02/02/19 TIME: 12:35 Assessment/Plan VTE Prophylaxis Risk score (from Nsg)>0 risk: 9 SCD applied (from Nsg): Yes Pharmacological prophylaxis: other (scds) Lines/Catheters IV Catheter Type (from Nrsg): Central Line Central line still needed: Yes (meds) Urinary Cath still in place: Yes Reason Cath still needed: other (indicate) (monitoro utput) Assessment/Plan Hospital Course Hospital Course Assessment: Hepatic encephalopathy Liver cirrhosis with ascites/post paracentesis Acute renal failure/rule out hepatorenal syndrome Anemia likely multifactorial Plan: 2gm NA diet Continue lactulose and rifaximin Continue antibiotics Nephrology care Monitor H&H, Transfuse as needed Patient seen in collaboration with Dr. Avilez/Heather Exam PHYSICAL EXAMINATION: GENERAL: Well developed, well nourished, alert & oriented x 3, in no acute distress SKIN: No lesions HEAD: Normocephalic, atraumatic, no tenderness. EYES: Pupils equal reactive to light and accommodation, no discharge. EARS/NOSE AND THROAT: Ears normal, nose normal, oropharynx normal NECK: Supple, no masses CHEST: Inspection within normal limits. CARDIOVASCULAR: Heart: Regular rate and rhythm, no murmurs, gallops or rubs. Peripheral pulses present within normal limits, no cyanosis, clubbing or edemas. No pulsatile abdominal mass RESPIRATORY: Lungs clear to auscultation and percussion, no wheezing, no rubs GASTROINTESTINAL AND LIVER: Abdomen: Soft, non tenderness, mildly distended, no hernias, no masses, no organomegaly, moderate ascites, no guarding, no rebound tenderness, normoactive bowel sounds. Rectal: Deferred. GENITOURINARY: [Female genitalia within normal limits.] EXTREMITIES: No cyanosis, clubbing. 2+ pitting edema. Result Diagram: 02/02/19 0431 02/02/19 0431 Results 24hrs Laboratory Tests Test 02/02/19 04:31 White Blood Count 7.3 Red Blood Count 2.28 L Hemoglobin 7.1 L Hematocrit 21.9 L Mean Corpuscular Volume 96.1 Mean Corpuscular Hemoglobin 31.1 Mean Corpuscular Hemoglobin Concent 32.4 Red Cell Distribution Width 17.8 H Platelet Count 103 #L Mean Platelet Volume 11.1 H Immature Granulocytes % 0.400 Neutrophils % 72.4 Lymphocytes % 13.9 L Monocytes % 9.5 Eosinophils % 3.3 Basophils % 0.5 Nucleated Red Blood Cells % 0.0 Immature Granulocytes # 0.030 Neutrophils # 5.3 Lymphocytes # 1.0 Monocytes # 0.7 Eosinophils # 0.2 Basophils # 0.0 Nucleated Red Blood Cells # 0.0 Sodium Level 146 H Potassium Level 3.7 Chloride Level 120 H Carbon Dioxide Level 10 L Anion Gap 16 H Blood Urea Nitrogen 68 H Creatinine 4.06 H Est Glomerular Filtrat Rate mL/min Glucose Level 107 Calcium Level 8.7 Total Bilirubin 1.0 Direct Bilirubin 0.00 Indirect Bilirubin 1.0 Aspartate Amino Transf (AST/SGOT) 31 Alanine Aminotransferase (ALT/SGPT) 27 Alkaline Phosphatase 101 Total Protein 6.0 L Albumin 2.8 L Globulin 3.20 Albumin/Globulin Ratio 0.87 Subjective 24 Hr Interval Summary Free Text/Dictation Course reviewed with nursing staff. Pt remains in ICU on pressors - SBP in the 90's Family at bedside. She is fully alert and oriented. We will continue rifaximin and lactulose. Continue nephrology management of acute renal failure. Hgb noted, will recheck in am, no overt signs of GI bleed. Exam/Review of Systems Exam Vitals Vital Signs Date Temp Pulse Resp B/P (MAP) Pulse Ox O2 O2 Flow FiO2 Time Delivery Rate 02/02/19 64 12 100/50 100 12:15 (67) 02/02/19 98.6 12:00 02/02/19 Room Air 11:00 02/02/19 01:00 Intake and Output 02/01/19 02/01/19 02/02/19 1515:00 23:00 07:00 IntakeIntake Total 829.50 ml 525.125 ml 199.750 ml OutputOutput Total 175 ml 202 ml 175 ml BalanceBalance 654.50 ml 323.125 ml 24.750 ml Results Results 24hrs Laboratory Tests Test 02/02/19 04:31 White Blood Count 7.3 Red Blood Count 2.28 L Hemoglobin 7.1 L Hematocrit 21.9 L Mean Corpuscular Volume 96.1 Mean Corpuscular Hemoglobin 31.1 Mean Corpuscular Hemoglobin Concent 32.4 Red Cell Distribution Width 17.8 H Platelet Count 103 #L Mean Platelet Volume 11.1 H Immature Granulocytes % 0.400 Neutrophils % 72.4 Lymphocytes % 13.9 L Monocytes % 9.5 Eosinophils % 3.3 Basophils % 0.5 Nucleated Red Blood Cells % 0.0 Immature Granulocytes # 0.030 Neutrophils # 5.3 Lymphocytes # 1.0 Monocytes # 0.7 Eosinophils # 0.2 Basophils # 0.0 Nucleated Red Blood Cells # 0.0 Sodium Level 146 H Potassium Level 3.7 Chloride Level 120 H Carbon Dioxide Level 10 L Anion Gap 16 H Blood Urea Nitrogen 68 H Creatinine 4.06 H Est Glomerular Filtrat Rate mL/min Glucose Level 107 Calcium Level 8.7 Total Bilirubin 1.0 Direct Bilirubin 0.00 Indirect Bilirubin 1.0 Aspartate Amino Transf (AST/SGOT) 31 Alanine Aminotransferase (ALT/SGPT) 27 Alkaline Phosphatase 101 Total Protein 6.0 L Albumin 2.8 L Globulin 3.20 Albumin/Globulin Ratio 0.87 Medications Medication Current Medications Vancomycin HCl (Vanco Iv Per Pharmacy) VANCOMYCIN PER PHARMACY PER PROTOCOL XX ; Start 01/30/19 at 16:30 Piperacillin Sod/ Tazobactam Sod 50 ml @ 100 mls/hr Q8 IVPB Last administered on 02/02/19 05:21; Admin Dose 100 MLS/HR; Start 01/30/19 at 22:00 Rifaximin (Xifaxan) 550 mg BID PO Last administered on 02/02/19 08:17; Admin Dose 550 MG; Start 01/30/19 at 21:00 Heparin Sodium (Porcine) (Heparin (5000 Units/1ml)) 5,000 unit Q12 SC Last administered on 02/02/19at 08:40; Admin Dose 5,000 UNIT; Start 01/30/19 at 21:00 Norepinephrine 250 ml @ 1.875 mls/ hr TITRATE IV Last administered on 9at 19:26; Admin Dose 9.375 MLS/HR; Start 01/30/19 at 22:30 Sevelamer Carbonate (Renvela) 1,600 mg WITH MEALS PO Last administered on 02/02/19at 12:05; Admin Dose 1,600 MG; Start 01/31/19 at 11:30 Midodrine (Proamatine) 5 mg Q8 PO Last administered on 02/02/19 05:21; Admin Dose 5 MG; Start 01/31/19 at 09:30 Albumin Human 100 ml @ 100 mls/hr Q8H IV Last administered on 02/02/19 08:17; Admin Dose 100 MLS/HR; Start 02/02/19 at 08:00; Stop 02/03/19 at 00:59 Citric Acid/ Sodium Citrate (Bicitra) 30 ml Q8 PO Last administered on 02/02/19at 08:35; Admin Dose 30 ML; Start 02/02/19 at 08:30 Sodium Chloride 1,000 ml @ 50 mls/hr Q20H IV Last administered on 02/02/19at 08:15; Admin Dose 50 MLS/HR; Start 02/02/19 at 08:00 Lactulose (Enulose) 20 gm BID PO ; Start 02/02/19 at 21:00 REANNA LEUNG Feb 02, 2019 12:44
--- NOTE | 2019-02-02 14:30 | PN ---
Date/Time of Note Date/Time of Note DATE: 02/02/19 TIME: 14:29 Assessment/Plan VTE Prophylaxis Risk score (from Ns)>0 risk: 9 SCD applied (from Ns): Yes Pharmacological prophylaxis: heparin Lines/Catheters IV Catheter Type (from [facility]): Central Line Central line still needed: Yes Urinary Cath still in place: Yes Reason Cath still needed: urinary retention Assessment/Plan Hospital Course 78 yo female with h/o cirrhosis who presents with obtundation and severe REVA REVA: - Unclear etiology but presume HRS - Continue midodrine, levophed, albumin 25% Hepatic encephelopathy - Resolved Cirrohsis; - Lactulose/rifaxamin - Hold diuretics and propranolol Anemia - From cirrhosis, no clinical report of bleeding Metabolic acidosis: - Likely from renal failure and respiratory alkalosis To ICU Result Diagram: 02/02/19 0431 02/02/19 0431 Results 24hrs Laboratory Tests Test 02/02/19 04:31 02/02/19 12:00 White Blood Count 7.3 Red Blood Count 2.28 L Hemoglobin 7.1 L Hematocrit 21.9 L Mean Corpuscular Volume 96.1 Mean Corpuscular Hemoglobin 31.1 Mean Corpuscular Hemoglobin Concent 32.4 Red Cell Distribution Width 17.8 H Platelet Count 103 #L Mean Platelet Volume 11.1 H Immature Granulocytes % 0.400 Neutrophils % 72.4 Lymphocytes % 13.9 L Monocytes % 9.5 Eosinophils % 3.3 Basophils % 0.5 Nucleated Red Blood Cells % 0.0 Immature Granulocytes # 0.030 Neutrophils # 5.3 Lymphocytes # 1.0 Monocytes # 0.7 Eosinophils # 0.2 Basophils # 0.0 Nucleated Red Blood Cells # 0.0 Sodium Level 146 H Potassium Level 3.7 Chloride Level 120 H Carbon Dioxide Level 10 L Anion Gap 16 H Blood Urea Nitrogen 68 H Creatinine 4.06 H Est Glomerular Filtrat Rate mL/min Glucose Level 107 Calcium Level 8.7 Total Bilirubin 1.0 Direct Bilirubin 0.00 Indirect Bilirubin 1.0 Aspartate Amino Transf (AST/SGOT) 31 Alanine Aminotransferase (ALT/SGPT) 27 Alkaline Phosphatase 101 Total Protein 6.0 L Albumin 2.8 L Globulin 3.20 Albumin/Globulin Ratio 0.87 Urine Color YELLOW Urine Clarity TURBID A Urine pH 5.0 Urine Specific [place] 1.015 Urine Ketones NEGATIVE Urine Nitrite NEGATIVE Urine Bilirubin NEGATIVE Urine Urobilinogen NEGATIVE Urine Leukocyte Esterase 3+ H Urine Microscopic RBC 99 H Urine Microscopic WBC > 182 H Urine Squamous Epithelial Cells FEW Urine Renal Epithelial Cells FEW A Urine Bacteria MODERATE Urine Hyaline Casts FEW A Urine Mucus FEW A Urine Yeast (Budding) MANY A Urine Hemoglobin 2+ H Urine Random Creatinine 91.21 Urine Random Sodium < 13 L Urine Glucose NEGATIVE Urine Total Protein 69.0 H Subjective 24 Hr Interval Summary Free Text/Dictation Mental status has improved to baseline Renal function remains impaired, making urine about 15-20 cc/hr Exam/Review of Systems Exam Vitals Vital Signs Date Temp Pulse Resp B/P (MAP) Pulse Ox O2 O2 Flow FiO2 Time Delivery Rate 02/02/19 64 12 100/50 100 12:15 (67) 02/02/19 98.6 12:00 02/02/19 Room Air 11:00 02/02/19 01:00 Intake and Output 02/01/19 02/01/19 02/02/19 1515:00 23:00 07:00 IntakeIntake Total 829.50 ml 525.125 ml 199.750 ml OutputOutput Total 175 ml 202 ml 185 ml BalanceBalance 654.50 ml 323.125 ml 14.750 ml Constitutional: alert, oriented, well developed Psych: no complaints, nl mood/affect Head: normocephalic, atraumatic Eyes: nl conjunctiva, EOMI, nl lids, nl sclera, PERRL ENMT: nl external ears & nose, nl lips & teeth, nl nasal mucosa & septum Neck: supple, non-tender Respiratory: clear to auscultation, normal air movement Cardiovascular: regular rate and rhythm, nl pulses Gastrointestinal: soft, nl liver, spleen, non-tender Musculoskeletal: nl extremities to inspection, nl gait and stance Extremities: normal pulses Neurological: MANAGER STRATEGIC SOURCING II-XII intact, nl mental status, nl speech, nl strength Skin: nl turgor; No rash or lesions Lymph: nl lymph nodes Results Results 24hrs Laboratory Tests Test 02/02/19 04:31 02/02/19 12:00 White Blood Count 7.3 Red Blood Count 2.28 L Hemoglobin 7.1 L Hematocrit 21.9 L Mean Corpuscular Volume 96.1 Mean Corpuscular Hemoglobin 31.1 Mean Corpuscular Hemoglobin Concent 32.4 Red Cell Distribution Width 17.8 H Platelet Count 103 #L Mean Platelet Volume 11.1 H Immature Granulocytes % 0.400 Neutrophils % 72.4 Lymphocytes % 13.9 L Monocytes % 9.5 Eosinophils % 3.3 Basophils % 0.5 Nucleated Red Blood Cells % 0.0 Immature Granulocytes # 0.030 Neutrophils # 5.3 Lymphocytes # 1.0 Monocytes # 0.7 Eosinophils # 0.2 Basophils # 0.0 Nucleated Red Blood Cells # 0.0 Sodium Level 146 H Potassium Level 3.7 Chloride Level 120 H Carbon Dioxide Level 10 L Anion Gap 16 H Blood Urea Nitrogen 68 H Creatinine 4.06 H Est Glomerular Filtrat Rate mL/min Glucose Level 107 Calcium Level 8.7 Total Bilirubin 1.0 Direct Bilirubin 0.00 Indirect Bilirubin 1.0 Aspartate Amino Transf (AST/SGOT) 31 Alanine Aminotransferase (ALT/SGPT) 27 Alkaline Phosphatase 101 Total Protein 6.0 L Albumin 2.8 L Globulin 3.20 Albumin/Globulin Ratio 0.87 Urine Color YELLOW Urine Clarity TURBID A Urine pH 5.0 Urine Specific [place] 1.015 Urine Ketones NEGATIVE Urine Nitrite NEGATIVE Urine Bilirubin NEGATIVE Urine Urobilinogen NEGATIVE Urine Leukocyte Esterase 3+ H Urine Microscopic RBC 99 H Urine Microscopic WBC > 182 H Urine Squamous Epithelial Cells FEW Urine Renal Epithelial Cells FEW A Urine Bacteria MODERATE Urine Hyaline Casts FEW A Urine Mucus FEW A Urine Yeast (Budding) MANY A Urine Hemoglobin 2+ H Urine Random Creatinine 91.21 Urine Random Sodium < 13 L Urine Glucose NEGATIVE Urine Total Protein 69.0 H Medications Medication Current Medications Vancomycin HCl (Vanco Iv Per Pharmacy) VANCOMYCIN PER PHARMACY PER PROTOCOL XX ; Start 01/30/19 at 16:30 Piperacillin Sod/ Tazobactam Sod 50 ml @ 100 mls/hr Q8 IVPB Last administered on 02/02/19at 13:49; Admin Dose 100 MLS/HR; Start 01/30/19 at 22:00 Rifaximin (Xifaxan) 550 mg BID PO Last administered on 02/02/19at 08:17; Admin Dose 550 MG; Start 01/30/19 at 21:00 Heparin Sodium (Porcine) (Heparin (5000 Units/1ml)) 5,000 unit Q12 SC Last administered on 02/02/19at 08:40; Admin Dose 5,000 UNIT; Start 01/30/19 at 21:00 Norepinephrine 250 ml @ 1.875 mls/ hr TITRATE IV Last administered on 02/01/19 19:26; Admin Dose 9.375 MLS/HR; Start 01/30/19 at 22:30 Sevelamer Carbonate (Renvela) 1,600 mg WITH MEALS PO Last administered on 02/02/19at 12:05; Admin Dose 1,600 MG; Start 01/31/19 at 11:30 Midodrine (Proamatine) 5 mg Q8 PO Last administered on 02/02/19at 13:58; Admin Dose 5 MG; Start 01/31/19 at 09:30 Albumin Human 100 ml @ 100 mls/hr Q8H IV Last administered on 02/02/19 08:17; Admin Dose 100 MLS/HR; Start 02/02/19 at 08:00; Stop 02/03/19 at 00:59 Citric Acid/ Sodium Citrate (Bicitra) 30 ml Q8 PO Last administered on 02/02/19at 13:49; Admin Dose 30 ML; Start 02/02/19 at 08:30 Sodium Chloride 1,000 ml @ 50 mls/hr Q20H IV Last administered on 02/02/19at 08:15; Admin Dose 50 MLS/HR; Start 02/02/19 at 08:00 Lactulose (Enulose) 20 gm BID PO ; Start 02/02/19 at 21:00 ALICIA SHARP MD Feb 02, 2019 14:30
[2019-02-02] MEDS: NORepinephrine 8MG/250 ML (PMX 250 ML IV SCH (21:08)
[2019-02-03] VITALS (80 sets, daily range): BP systolic 84–136; BP diastolic 40–65; PULSE 54–78; RESP 9–25
[2019-02-03] MEDS: SOD CHLORIDE 0.45% 1,000 ML IV SCH ×2 (03:48→23:23)
[2019-02-03] MEDS: PIPER-TAZO 2.25 GM (PMX) 50 ML IVPB SCH ×3 (05:06→21:02)
[2019-02-03] MEDS: CITRIC ACID/NA CITRATE 30 ML CUP PO SCH ×3 (05:06→21:02)
[2019-02-03] MEDS: MIDODRINE 5 MG TAB PO SCH ×3 (05:07→21:02)
[2019-02-03] MEDS: SEVELAMER CARBONATE 800 MG TABLET PO SCH ×3 (07:48→17:39)
--- NOTE | 2019-02-03 08:10 | PN ---
DATE: 02/03/2019 SUBJECTIVE: The patient remains critically ill on pressor support. The patient's urinary output has been marginal. No other events noted. No hemoptysis, hematemesis, or hematochezia. OBJECTIVE: VITAL SIGNS: Blood pressure is 113/46, respirations 11, pulse 61, temperature 98.6. I's and O's hav e been reviewed. HEENT: Head is normocephalic. NECK: Supple. HEART: Regular rate. LUNGS: Show diminished breath sounds at the base. ABDOMEN: Soft, nontender to palpation without rebound or guarding. EXTREMITIES: Negative for clubbing, cyanosis. Trace edema. DERMATOLOGIC: No rashes. MUSCULOSKELETAL: No joint effusion. NEUROLOGIC: No change in exam. MEDICATIONS: Reviewed. LABORATORY DATA: Shows a sodium 144, potassium 3.6, chloride 115, bicarbonate is 10, BUN 63, creatin ine 3.36, magnesium 1.6. White count 5.1, hemoglobin 6.2, platelet count is 76. MICROBIOLOGY: Reviewed. ASSESSMENT AND PLAN: 1. Nonoliguric acute kidney injury with previous baseline creatinine of 0.7 mg/dL. Etiology of acut e kidney injury is possibly multifactorial secondary to hemodynamics, tubular injury due to shock. T he patient's renal function has been improving with pressor support, IV fluids and antibiotic therapy . Recommendation is to continue current treatment plan. Continue pressor support to maintain MAP of 65. We will continue volume expansion with IV albumin. We will continue renally dose all medicines , avoid nephrotoxins. Please note that a diagnosis of hepatorenal syndrome is one of exclusion and t he patient does not meet criteria due to initial presentation of shock. 2. Hyperkalemia, improved. Continue medical management. 3. Metabolic acidosis. Etiology is secondary to acute kidney injury. The patient is on Bicitra and will continue. 4. Hypernatremia, improved. Continue hypertonic fluid. Continue free water intake. 5. Lactic acidosis secondary to shock, improving. 6. Septic shock secondary to possible SBP, urinary tract infection. Continue current antibiotic reg imen, pressor support, IV fluids. 7. Acute encephalopathy. Etiology is toxic metabolic. 8. Decompensated cirrhosis. Continue medical management. 9. Anemia. Continue to monitor hemoglobin and hematocrit levels. Please note I spent over 30 minutes of critical care time with this patient. Dictated By: ZOË FUCHS DO NR/NTS Conf#: [id number] DID#: [id number] CC: ZOË FUCHS DO; ALICIA SHARP MD;*End*
[2019-02-03] MEDS: ALBUMIN HUMAN 25% 100 ML IV SCH ×4 (08:52→23:24)
[2019-02-03] MEDS: RIFAXIMIN 550 MG TAB PO SCH ×2 (08:52→21:02)
[2019-02-03] MEDS: HEPARIN 5,000 UNIT/1 ML VIAL SC SCH ×2 (08:59→21:11)
[2019-02-03] MEDS: LACTULOSE 30ML CUP PO SCH ×2 (09:00→21:02)
[2019-02-03] MEDS ORDERED: SOD CHLORIDE 0.9% 250 ML IV* ONE (09:25)
--- NOTE | 2019-02-03 13:37 | PN ---
Date/Time of Note Date/Time of Note DATE: 02/03/19 TIME: 13:35 Assessment/Plan VTE Prophylaxis Risk score (from Ns)>0 risk: 9 [place] [facility] [place] Pharmacological prophylaxis: heparin Lines/Catheters [facility] Type (from [facility]): Central Line Central line still needed: Yes Urinary Cath still in place: Yes Reason Cath still needed: urinary retention Assessment/Plan Hospital Course 78 yo female with h/o cirrhosis who presents with obtundation and severe REVA REVA: - Unclear etiology, likely prerenal, HRS a consideration - Continue midodrine, levophed to MAP 65, albumin 25% Hepatic encephelopathy - Resolved Cirrohsis; - Lactulose/rifaxamin - Hold diuretics and propranolol Anemia - From cirrhosis, no clinical report of bleeding Metabolic acidosis: - Likely from renal failure and respiratory alkalosis To ICU Result Diagram: 02/03/19 0755 02/03/19 0755 Results 24hrs Laboratory Tests Test 02/03/19 04:23 02/03/19 07:55 White Blood Count 5.1 # 4.9 Red Blood Count 2.02 L 2.05 L Hemoglobin 6.2 *L 6.6 *L Hematocrit 19.7 L 19.7 L Mean Corpuscular Volume 97.5 96.1 Mean Corpuscular Hemoglobin 30.7 32.2 Mean Corpuscular Hemoglobin Concent 31.5 L 33.5 Red Cell Distribution Width 17.3 H 17.2 H Platelet Count 76 #L 74 L Mean Platelet Volume 10.9 H 11.2 H Immature Granulocytes % 0.200 0.600 H Neutrophils % 66.7 67.6 Lymphocytes % 18.5 16.8 Monocytes % 8.9 10.1 Eosinophils % 4.9 4.5 Basophils % 0.8 0.4 Nucleated Red Blood Cells % 0.0 0.0 Immature Granulocytes # 0.010 0.030 Neutrophils # 3.4 3.3 Lymphocytes # 0.9 0.8 Monocytes # 0.5 0.5 Eosinophils # 0.3 0.2 Basophils # 0.0 0.0 Nucleated Red Blood Cells # 0.0 0.0 Sodium Level 144 143 Potassium Level 3.6 3.5 Chloride Level 115 H 115 H Carbon Dioxide Level 10 L 11 L Anion Gap 19 H 17 H Blood Urea Nitrogen 63 H 61 H Creatinine 3.36 H 3.28 H Est Glomerular Filtrat Rate mL/min Glucose Level 92 93 Calcium Level 8.8 8.7 Phosphorus Level 4.9 # Magnesium Level 1.6 L Total Bilirubin 1.1 Direct Bilirubin 0.00 Indirect Bilirubin 1.1 Aspartate Amino Transf (AST/SGOT) 28 Alanine Aminotransferase (ALT/SGPT) 21 Alkaline Phosphatase 69 Total Protein 5.9 L Albumin 3.4 Globulin 2.50 Albumin/Globulin Ratio 1.36 Segmented Neutrophils % (Manual) 70 Band Neutrophils % (Manual) 2 Lymphocytes % (Manual) 15 Monocytes % (Manual) 6 Eosinophils % (Manual) 7 Neutrophils # (Manual) 3.4 Band Neutrophils # 0.0 Lymphocytes (Manual) 0.7 L Monocytes # (Manual) 0.2 L Platelet Estimate DECREASED Polychromasia 3+ Poikilocytosis 2+ Anisocytosis 2+ Macrocytosis 1+ Schistocytes 1+ Subjective 24 Hr Interval Summary Free Text/Dictation Renal function improving a bit Mental status is returned to baseline Continues on levophed Exam/Review of Systems Exam Vitals Vital Signs Date Temp Pulse Resp B/P (MAP) Pulse Ox O2 O2 Flow FiO2 Time Delivery Rate 02/03/19 98.3 68 14 119/54 100 12:00 (75) 02/03/19 Room Air 10:00 02/02/19 01:00 Intake and Output 02/02/19 02/02/19 02/03/19 1515:00 23:00 07:00 IntakeIntake Total 1202 ml 836.750 ml 586.875 ml OutputOutput Total 155 ml 190 ml 185 ml BalanceBalance 1047 ml 646.750 ml 401.875 ml Exam Alert oriented No distress RRR Breathign comfortably Abdomen mildly distended with ascites Results Results 24hrs Laboratory Tests Test 02/03/19 04:23 02/03/19 07:55 White Blood Count 5.1 # 4.9 Red Blood Count 2.02 L 2.05 L Hemoglobin 6.2 *L 6.6 *L Hematocrit 19.7 L 19.7 L Mean Corpuscular Volume 97.5 96.1 Mean Corpuscular Hemoglobin 30.7 32.2 Mean Corpuscular Hemoglobin Concent 31.5 L 33.5 Red Cell Distribution Width 17.3 H 17.2 H Platelet Count 76 #L 74 L Mean Platelet Volume 10.9 H 11.2 H Immature Granulocytes % 0.200 0.600 H Neutrophils % 66.7 67.6 Lymphocytes % 18.5 16.8 Monocytes % 8.9 10.1 Eosinophils % 4.9 4.5 Basophils % 0.8 0.4 Nucleated Red Blood Cells % 0.0 0.0 Immature Granulocytes # 0.010 0.030 Neutrophils # 3.4 3.3 Lymphocytes # 0.9 0.8 Monocytes # 0.5 0.5 Eosinophils # 0.3 0.2 Basophils # 0.0 0.0 Nucleated Red Blood Cells # 0.0 0.0 Sodium Level 144 143 Potassium Level 3.6 3.5 Chloride Level 115 H 115 H Carbon Dioxide Level 10 L 11 L Anion Gap 19 H 17 H Blood Urea Nitrogen 63 H 61 H Creatinine 3.36 H 3.28 H Est Glomerular Filtrat Rate mL/min Glucose Level 92 93 Calcium Level 8.8 8.7 Phosphorus Level 4.9 # Magnesium Level 1.6 L Total Bilirubin 1.1 Direct Bilirubin 0.00 Indirect Bilirubin 1.1 Aspartate Amino Transf (AST/SGOT) 28 Alanine Aminotransferase (ALT/SGPT) 21 Alkaline Phosphatase 69 Total Protein 5.9 L Albumin 3.4 Globulin 2.50 Albumin/Globulin Ratio 1.36 Segmented Neutrophils % (Manual) 70 Band Neutrophils % (Manual) 2 Lymphocytes % (Manual) 15 Monocytes % (Manual) 6 Eosinophils % (Manual) 7 Neutrophils # (Manual) 3.4 Band Neutrophils # 0.0 Lymphocytes (Manual) 0.7 L Monocytes # (Manual) 0.2 L Platelet Estimate DECREASED Polychromasia 3+ Poikilocytosis 2+ Anisocytosis 2+ Macrocytosis 1+ Schistocytes 1+ Medications Medication Current Medications Piperacillin Sod/ Tazobactam Sod 50 ml @ 100 mls/hr Q8 IVPB Last administered on 02/03/19at 05:06; Admin Dose 100 MLS/HR; Start 01/30/19 at 22:00 Rifaximin (Xifaxan) 550 mg BID PO Last administered on 02/03/19at 08:52; Admin Dose 550 MG; Start 01/30/19 at 21:00 Heparin Sodium (Porcine) (Heparin (5000 Units/1ml)) 5,000 unit Q12 SC Last administered on 02/03/19at 08:59; Admin Dose 5,000 UNIT; Start 01/30/19 at 21:00 Norepinephrine 250 ml @ 1.875 mls/ hr TITRATE IV Last administered on 02/02/19 21:08; Admin Dose 7.5 MLS/HR; Start 01/30/19 at 22:30 Sevelamer Carbonate (Renvela) 1,600 mg WITH MEALS PO Last administered on 02/03/19 12:01; Admin Dose 1,600 MG; Start 01/31/19 at 11:30 Midodrine (Proamatine) 5 mg Q8 PO Last administered on 02/03/19 05:07; Admin Dose 5 MG; Start 01/31/19 at 09:30 Citric Acid/ Sodium Citrate (Bicitra) 30 ml Q8 PO Last administered on 05:06; Admin Dose 30 ML; Start 02/02/19 at 08:30 Sodium Chloride 1,000 ml @ 50 mls/hr Q20H IV Last administered on 02/03/19 03:48; Admin Dose 50 MLS/HR; Start 02/02/19 at 08:00 Lactulose (Enulose) 20 gm BID PO Last administered on 02/02/19 20:19; Admin Dose 20 GM; Start 02/02/19 at 21:00 Albumin Human 100 ml @ 100 mls/hr Q8H IV Last administered on 02/03/19 08:52; Admin Dose 100 MLS/HR; Start 02/03/19 at 08:00; Stop 02/04/19 at 00:59 ALICIA SHARP MD Feb 03, 2019 13:37
--- NOTE | 2019-02-03 15:19 | PN ---
Date/Time of Note Date/Time of Note DATE: 02/03/19 TIME: 15:16 Assessment/Plan VTE Prophylaxis Risk score (from Nsg)>0 risk: 9 SCD applied (from Nsg): Yes Pharmacological prophylaxis: other (scds) Lines/Catheters IV Catheter Type (from Nrsg): Central Line Central line still needed: Yes (meds) Urinary Cath still in place: Yes Reason Cath still needed: other (indicate) (monitor) Assessment/Plan Hospital Course Hospital Course Assessment: Hepatic encephalopathy Liver cirrhosis with ascites/post paracentesis Acute renal failure/rule out hepatorenal syndrome Anemia likely multifactorial Plan: 2gm NA diet Continue lactulose and rifaximin Continue antibiotics Nephrology care Monitor H&H,- drop to the 6's today- pt was given 1 unit PRBCs- will continue to monitor Patient seen in collaboration with Dr. Avilez/Amari Subjective: Pt feels ok, she remains in ICU, on pressors, SBP in the 100's currently No over signs of GI bleed. Continue close observation. Exam PHYSICAL EXAMINATION: GENERAL: Well developed, well nourished, alert & oriented x 3, in no acute distress SKIN: No lesions HEAD: Normocephalic, atraumatic, no tenderness. EYES: Pupils equal reactive to light and accommodation, no discharge. EARS/NOSE AND THROAT: Ears normal, nose normal, oropharynx normal NECK: Supple, no masses CHEST: Inspection within normal limits. CARDIOVASCULAR: Heart: Regular rate and rhythm, no murmurs, gallops or rubs. Peripheral pulses present within normal limits, no cyanosis, clubbing or edemas. No pulsatile abdominal mass RESPIRATORY: Lungs clear to auscultation and percussion, no wheezing, no rubs GASTROINTESTINAL AND LIVER: Abdomen: Soft, non tenderness, mildly distended, no hernias, no masses, no organomegaly, moderate ascites, no guarding, no rebound tenderness, normoactive bowel sounds. Rectal: Deferred. GENITOURINARY: [Female genitalia within normal limits.] EXTREMITIES: No cyanosis, clubbing. 2+ pitting edema. Result Diagram: 02/03/19 0755 02/03/19 0755 Results 24hrs Laboratory Tests Test 02/03/19 04:23 02/03/19 07:55 White Blood Count 5.1 # 4.9 Red Blood Count 2.02 L 2.05 L Hemoglobin 6.2 *L 6.6 *L Hematocrit 19.7 L 19.7 L Mean Corpuscular Volume 97.5 96.1 Mean Corpuscular Hemoglobin 30.7 32.2 Mean Corpuscular Hemoglobin Concent 31.5 L 33.5 Red Cell Distribution Width 17.3 H 17.2 H Platelet Count 76 #L 74 L Mean Platelet Volume 10.9 H 11.2 H Immature Granulocytes % 0.200 0.600 H Neutrophils % 66.7 67.6 Lymphocytes % 18.5 16.8 Monocytes % 8.9 10.1 Eosinophils % 4.9 4.5 Basophils % 0.8 0.4 Nucleated Red Blood Cells % 0.0 0.0 Immature Granulocytes # 0.010 0.030 Neutrophils # 3.4 3.3 Lymphocytes # 0.9 0.8 Monocytes # 0.5 0.5 Eosinophils # 0.3 0.2 Basophils # 0.0 0.0 Nucleated Red Blood Cells # 0.0 0.0 Sodium Level 144 143 Potassium Level 3.6 3.5 Chloride Level 115 H 115 H Carbon Dioxide Level 10 L 11 L Anion Gap 19 H 17 H Blood Urea Nitrogen 63 H 61 H Creatinine 3.36 H 3.28 H Est Glomerular Filtrat Rate mL/min Glucose Level 92 93 Calcium Level 8.8 8.7 Phosphorus Level 4.9 # Magnesium Level 1.6 L Total Bilirubin 1.1 Direct Bilirubin 0.00 Indirect Bilirubin 1.1 Aspartate Amino Transf (AST/SGOT) 28 Alanine Aminotransferase (ALT/SGPT) 21 Alkaline Phosphatase 69 Total Protein 5.9 L Albumin 3.4 Globulin 2.50 Albumin/Globulin Ratio 1.36 Segmented Neutrophils % (Manual) 70 Band Neutrophils % (Manual) 2 Lymphocytes % (Manual) 15 Monocytes % (Manual) 6 Eosinophils % (Manual) 7 Neutrophils # (Manual) 3.4 Band Neutrophils # 0.0 Lymphocytes (Manual) 0.7 L Monocytes # (Manual) 0.2 L Platelet Estimate DECREASED Polychromasia 3+ Poikilocytosis 2+ Anisocytosis 2+ Macrocytosis 1+ Schistocytes 1+ Exam/Review of Systems Exam Vitals Vital Signs Date Temp Pulse Resp B/P (MAP) Pulse Ox O2 O2 Flow FiO2 Time Delivery Rate 02/03/19 66 13 107/47 100 14:45 (67) 02/03/19 98.3 12:00 02/03/19 Room Air 10:00 02/02/19 01:00 Intake and Output 02/02/19 02/02/19 02/03/19 1515:00 23:00 07:00 IntakeIntake Total 1202 ml 836.750 ml 586.875 ml OutputOutput Total 155 ml 190 ml 185 ml BalanceBalance 1047 ml 646.750 ml 401.875 ml Results Results 24hrs Laboratory Tests Test 02/03/19 04:23 02/03/19 07:55 White Blood Count 5.1 # 4.9 Red Blood Count 2.02 L 2.05 L Hemoglobin 6.2 *L 6.6 *L Hematocrit 19.7 L 19.7 L Mean Corpuscular Volume 97.5 96.1 Mean Corpuscular Hemoglobin 30.7 32.2 Mean Corpuscular Hemoglobin Concent 31.5 L 33.5 Red Cell Distribution Width 17.3 H 17.2 H Platelet Count 76 #L 74 L Mean Platelet Volume 10.9 H 11.2 H Immature Granulocytes % 0.200 0.600 H Neutrophils % 66.7 67.6 Lymphocytes % 18.5 16.8 Monocytes % 8.9 10.1 Eosinophils % 4.9 4.5 Basophils % 0.8 0.4 Nucleated Red Blood Cells % 0.0 0.0 Immature Granulocytes # 0.010 0.030 Neutrophils # 3.4 3.3 Lymphocytes # 0.9 0.8 Monocytes # 0.5 0.5 Eosinophils # 0.3 0.2 Basophils # 0.0 0.0 Nucleated Red Blood Cells # 0.0 0.0 Sodium Level 144 143 Potassium Level 3.6 3.5 Chloride Level 115 H 115 H Carbon Dioxide Level 10 L 11 L Anion Gap 19 H 17 H Blood Urea Nitrogen 63 H 61 H Creatinine 3.36 H 3.28 H Est Glomerular Filtrat Rate mL/min Glucose Level 92 93 Calcium Level 8.8 8.7 Phosphorus Level 4.9 # Magnesium Level 1.6 L Total Bilirubin 1.1 Direct Bilirubin 0.00 Indirect Bilirubin 1.1 Aspartate Amino Transf (AST/SGOT) 28 Alanine Aminotransferase (ALT/SGPT) 21 Alkaline Phosphatase 69 Total Protein 5.9 L Albumin 3.4 Globulin 2.50 Albumin/Globulin Ratio 1.36 Segmented Neutrophils % (Manual) 70 Band Neutrophils % (Manual) 2 Lymphocytes % (Manual) 15 Monocytes % (Manual) 6 Eosinophils % (Manual) 7 Neutrophils # (Manual) 3.4 Band Neutrophils # 0.0 Lymphocytes (Manual) 0.7 L Monocytes # (Manual) 0.2 L Platelet Estimate DECREASED Polychromasia 3+ Poikilocytosis 2+ Anisocytosis 2+ Macrocytosis 1+ Schistocytes 1+ Medications Medication Current Medications Piperacillin Sod/ Tazobactam Sod 50 ml @ 100 mls/hr Q8 IVPB Last administered on 02/03/19 13:48; Admin Dose 100 MLS/HR; Start 01/30/19 at 22:00 Rifaximin (Xifaxan) 550 mg BID PO Last administered on 02/03/19 08:52; Admin Dose 550 MG; Start 01/30/19 at 21:00 Heparin Sodium (Porcine) (Heparin (5000 Units/1ml)) 5,000 unit Q12 SC Last administered on 02/03/19 08:59; Admin Dose 5,000 UNIT; Start 01/30/19 at 21:00 Norepinephrine 250 ml @ 1.875 mls/ hr TITRATE IV Last administered on 02/02/19 21:08; Admin Dose 7.5 MLS/HR; Start 01/30/19 at 22:30 Sevelamer Carbonate (Renvela) 1,600 mg WITH MEALS PO Last administered on 02/03/19 12:01; Admin Dose 1,600 MG; Start 01/31/19 at 11:30 Midodrine (Proamatine) 5 mg Q8 PO Last administered on 02/03/19 13:48; Admin Dose 5 MG; Start 01/31/19 at 09:30 Citric Acid/ Sodium Citrate (Bicitra) 30 ml Q8 PO Last administered on 02/03/19 13:48; Admin Dose 30 ML; Start 02/02/19 at 08:30 Sodium Chloride 1,000 ml @ 50 mls/hr Q20H IV Last administered on 02/03/19 03:48; Admin Dose 50 MLS/HR; Start 02/02/19 at 08:00 Lactulose (Enulose) 20 gm BID PO Last administered on 02/02/19 20:19; Admin Dose 20 GM; Start 02/02/19 at 21:00 Albumin Human 100 ml @ 100 mls/hr Q8H IV Last administered on 02/03/19at 08:52; Admin Dose 100 MLS/HR; Start 02/03/19 at 08:00; Stop 02/04/19 at 00:59 REANNA LEUNG Feb 03, 2019 15:19
[2019-02-04] VITALS (94 sets, daily range): BP systolic 82–121; BP diastolic 36–94; PULSE 58–75; RESP 0–33
[2019-02-04] MEDS: CITRIC ACID/NA CITRATE 30 ML CUP PO SCH ×3 (05:25→21:22)
[2019-02-04] MEDS: PIPER-TAZO 2.25 GM (PMX) 50 ML IVPB SCH ×2 (05:25→14:16)
[2019-02-04] MEDS: MIDODRINE 5 MG TAB PO SCH ×3 (05:25→21:22)
[2019-02-04] MEDS ORDERED: morphine 2 MG INJ IV PRN (05:30)
[2019-02-04] MEDS ORDERED: POTASSIUM CHLORIDE (SR) 20 MEQ TAB PO STA (07:59)
[2019-02-04] MEDS ORDERED: MAGNESIUM SULFATE 2 GM/50 ML 50 ML IVPB ONE (08:00)
[2019-02-04] MEDS: LACTULOSE 30ML CUP PO SCH ×2 (08:16→21:22)
[2019-02-04] MEDS: RIFAXIMIN 550 MG TAB PO SCH ×2 (08:17→21:22)
[2019-02-04] MEDS: SEVELAMER CARBONATE 800 MG TABLET PO SCH ×3 (08:17→17:19)
[2019-02-04] MEDS: ALBUMIN HUMAN 25% 100 ML IV SCH ×3 (08:18→23:58)
[2019-02-04] MEDS: HEPARIN 5,000 UNIT/1 ML VIAL SC SCH ×2 (08:19→21:31)
--- NOTE | 2019-02-04 08:27 | PN ---
DATE: 02/04/2019 SUBJECTIVE: The patient remains critically ill on pressor support. Urinary output has been marginal . No other events noted. OBJECTIVE: VITAL SIGNS: Blood pressure is 95/39, respirations 11, pulse is 62, temperature 98.6. HEENT: Head is normocephalic. NECK: Supple. HEART: Regular rate. LUNGS: Show diminished breath sounds at the base. ABDOMEN: Soft, nontender to palpation without rebound or guarding. EXTREMITIES: Negative for clubbing, cyanosis, no edema. DERMATOLOGIC: No rashes. MUSCULOSKELETAL: No joint effusion. NEUROLOGIC: No change in exam. MEDICATIONS: Reviewed. LABORATORY DATA: Shows a white count of 4.6, hemoglobin 6.8, platelet count is 62. Sodium 141, pota ssium 3.3, BUN 36, creatinine 3.07, magnesium is 1.6. ASSESSMENT AND PLAN: 1. Nonoliguric acute kidney injury with previous baseline creatinine of 0.7 mg/dL. Etiology of acut e kidney injury is multifactorial secondary to hemodynamics, possible acute tubular necrosis due to s hock. The patient's renal function has slowly been improving with supportive care, IV fluids, antibi otic therapy. We will continue current treatment plan. Continue pressor support, maintain MAP of 65 . Continue IV albumin for volume expansion. Continue to renally dose all medicines and avoid nephro toxins. 2. Hypokalemia. We will replete with potassium chloride and correct underlying hypomagnesemia. 3. Hypomagnesemia. We will replete with magnesium sulfate. 4. Metabolic acidosis secondary to acute kidney injury. The patient is on Bicitra, continue. 5. Hypernatremia, improved. 6. Lactic acidosis secondary to shock, improving. 7. Septic shock secondary to possible SBP, urinary tract infection. Continue current antibiotic reg imen and pressor support. 8. Acute encephalopathy, etiology is toxic metabolic. 9. Decompensated cirrhosis. Continue medical management. Follow up with GI. 10. Anemia. Monitor hemoglobin and hematocrit levels. Please note I spent over 30 minutes of critical care time with this patient. Dictated By: ZOË FUCHS DO NR/NTS Conf#: [id number] DID#: [id number] CC: ZOË FUCHS DO; ALICIA SHARP MD;*EndCC*
--- NOTE | 2019-02-04 12:52 | PN ---
Date/Time of Note Date/Time of Note DATE: 02/04/19 TIME: 12:42 Assessment/Plan VTE Prophylaxis Risk score (from Nsg)>0 risk: 10 SCD applied (from Nsg): Yes Pharmacological prophylaxis: heparin Lines/Catheters IV Catheter Type (from Nrsg): Central Line Central line still needed: Yes (meds) Urinary Cath still in place: Yes Reason Cath still needed: other (indicate) (monitor output) Assessment/Plan Hospital Course Hospital Course Assessment: Hepatic encephalopathy Liver cirrhosis with ascites/post paracentesis Acute renal failure/rule out hepatorenal syndrome Anemia likely multifactorial Plan: 2gm NA diet Continue lactulose and rifaximin Continue antibiotics Nephrology care Monitor H&H, no improvement in Hgb from yesterday - 1 more unit ordered today Pt with increased SOB with movement- will order paracentesis today Patient seen in collaboration with Dr. Avilez/Amari Subjective: Pt remains in ICU on pressors, has increased SOB with movement could be 2/2 to anemia vs increased girth from abdomnal ascites Will plan to order paracentesis today. Pt also receiving 1 unit of blood today Exam PHYSICAL EXAMINATION: GENERAL: Well developed, well nourished, alert & oriented x 3, in no acute distress NECK: Supple, no masses CHEST: Inspection within normal limits. CARDIOVASCULAR: Heart: Regular rate and rhythm RESPIRATORY: Lungs clear to auscultation and percussion, no wheezing, no rubs GASTROINTESTINAL AND LIVER: Abdomen: Soft, non tenderness, mildly distended, no hernias, no masses, no organomegaly, moderate ascites, no guarding, no rebound tenderness, normoactive bowel sounds. Rectal: Deferred. GENITOURINARY: [Female genitalia within normal limits.] EXTREMITIES: No cyanosis, clubbing. Result Diagram: 02/04/19 0443 02/04/193 Results 24hrs Laboratory Tests Test 02/04/19 04:43 02/04/19 05:19 White Blood Count 4.6 L Red Blood Count 2.25 L Hemoglobin 6.8 *L Hematocrit 21.3 L Mean Corpuscular Volume 94.7 Mean Corpuscular Hemoglobin 30.2 Mean Corpuscular Hemoglobin Concent 31.9 L Red Cell Distribution Width 19.0 H Platelet Count 62 L Mean Platelet Volume 11.3 H Immature Granulocytes % 0.400 Neutrophils % 62.4 Lymphocytes % 20.0 Monocytes % 11.0 Eosinophils % 5.6 Basophils % 0.6 Nucleated Red Blood Cells % 0.0 Immature Granulocytes # 0.020 Neutrophils # 2.9 Lymphocytes # 0.9 Monocytes # 0.5 Eosinophils # 0.3 Basophils # 0.0 Nucleated Red Blood Cells # 0.0 Sodium Level 141 Potassium Level 3.3 L Chloride Level 115 H Carbon Dioxide Level 12 L Anion Gap 14 H Blood Urea Nitrogen 56 H Creatinine 3.07 H Est Glomerular Filtrat Rate mL/min Glucose Level 105 Calcium Level 8.7 Phosphorus Level 4.2 Magnesium Level 1.6 L Total Bilirubin 1.4 H Direct Bilirubin 0.00 Indirect Bilirubin 1.4 H Aspartate Amino Transf (AST/SGOT) 19 Alanine Aminotransferase (ALT/SGPT) 19 Alkaline Phosphatase 55 Total Protein 5.7 L Albumin 3.6 Globulin 2.10 Albumin/Globulin Ratio 1.71 Lab Scanned Report BLOOD TRANSFUSION Exam/Review of Systems Exam Vitals Vital Signs Date Temp Pulse Resp B/P (MAP) Pulse Ox O2 O2 Flow FiO2 Time Delivery Rate 02/04/19 67 16 110/54 100 12:15 (72) 02/04/19 98.0 Room Air 12:00 02/02/19 01:00 Intake and Output 02/03/19 02/03/19 02/04/19 1515:00 23:00 07:00 IntakeIntake Total 1242.4 ml 933.70 ml 553.225 ml OutputOutput Total 185 ml 205 ml 205 ml BalanceBalance 1057.4 ml 728.70 ml 348.225 ml Results Results 24hrs Laboratory Tests Test 02/04/19 04:43 02/04/19 05:19 White Blood Count 4.6 L Red Blood Count 2.25 L Hemoglobin 6.8 *L Hematocrit 21.3 L Mean Corpuscular Volume 94.7 Mean Corpuscular Hemoglobin 30.2 Mean Corpuscular Hemoglobin Concent 31.9 L Red Cell Distribution Width 19.0 H Platelet Count 62 L Mean Platelet Volume 11.3 H Immature Granulocytes % 0.400 Neutrophils % 62.4 Lymphocytes % 20.0 Monocytes % 11.0 Eosinophils % 5.6 Basophils % 0.6 Nucleated Red Blood Cells % 0.0 Immature Granulocytes # 0.020 Neutrophils # 2.9 Lymphocytes # 0.9 Monocytes # 0.5 Eosinophils # 0.3 Basophils # 0.0 Nucleated Red Blood Cells # 0.0 Sodium Level 141 Potassium Level 3.3 L Chloride Level 115 H Carbon Dioxide Level 12 L Anion Gap 14 H Blood Urea Nitrogen 56 H Creatinine 3.07 H Est Glomerular Filtrat Rate mL/min Glucose Level 105 Calcium Level 8.7 Phosphorus Level 4.2 Magnesium Level 1.6 L Total Bilirubin 1.4 H Direct Bilirubin 0.00 Indirect Bilirubin 1.4 H Aspartate Amino Transf (AST/SGOT) 19 Alanine Aminotransferase (ALT/SGPT) 19 Alkaline Phosphatase 55 Total Protein 5.7 L Albumin 3.6 Globulin 2.10 Albumin/Globulin Ratio 1.71 Lab Scanned Report BLOOD TRANSFUSION Medications Medication Current Medications Piperacillin Sod/ Tazobactam Sod 50 ml @ 100 mls/hr Q8 IVPB Last administered on 02/04/19 05:25; Admin Dose 100 MLS/HR; Start 01/30/19 at 22:00 Rifaximin (Xifaxan) 550 mg BID PO Last administered on 02/04/19 08:17; Admin Dose 550 MG; Start 01/30/19 at 21:00 Heparin Sodium (Porcine) (Heparin (5000 Units/1ml)) 5,000 unit Q12 SC Last administered on 02/04/19 08:19; Admin Dose 5,000 UNIT; Start 01/30/19 at 21:00 Norepinephrine 250 ml @ 1.875 mls/ hr TITRATE IV Last administered on 02/02/19 21:08; Admin Dose 7.5 MLS/HR; Start 01/30/19 at 22:30 Sevelamer Carbonate (Renvela) 1,600 mg WITH MEALS PO Last administered on 02/04/19 08:17; Admin Dose 1,600 MG; Start 01/31/19 at 11:30 Midodrine (Proamatine) 5 mg Q8 PO Last administered on 02/04/19 05:25; Admin Dose 5 MG; Start 01/31/19 at 09:30 Citric Acid/ Sodium Citrate (Bicitra) 30 ml Q8 PO Last administered on 02/04/19 05:25; Admin Dose 30 ML; Start 02/02/19 at 08:30 Sodium Chloride 1,000 ml @ 50 mls/hr Q20H IV Last administered on 02/03/19 23:23; Admin Dose 50 MLS/HR; Start 02/02/19 at 08:00 Lactulose (Enulose) 20 gm BID PO Last administered on 02/04/19at 08:16; Admin Dose 20 GM; Start 02/02/19 at 21:00 Morphine Sulfate (morphine) 1 mg Q4H PRN IV SEVERE PAIN LEVEL 7-10 Last administered on 02/04/19 06:03; Admin Dose 1 MG; Start 02/04/19 at 05:30 Albumin Human 100 ml @ 100 mls/hr Q8H IV Last administered on 02/04/19at 08:18; Admin Dose 100 MLS/HR; Start 02/04/19 at 08:00; Stop 02/05/19 at 00:59 REANNA LEUNG Feb 04, 2019 12:52
[2019-02-04] MEDS: NORepinephrine 8MG/250 ML (PMX 250 ML IV SCH (14:17)
[2019-02-04] MEDS ORDERED: LIDOCAINE 1% (MPF) 5 ML VIAL ONE (15:22)
--- NOTE | 2019-02-04 16:55 | PN ---
Date/Time of Note Date/Time of Note DATE: 02/04/19 TIME: 16:53 Assessment/Plan VTE Prophylaxis Risk score (from Ns)>0 risk: 10 SCD applied (from Ns): Yes Pharmacological prophylaxis: heparin Lines/Catheters IV Catheter Type (from Nrsg): Central Line Central line still needed: Yes Urinary Cath still in place: Yes Reason Cath still needed: urinary retention Assessment/Plan Hospital Course 78 yo female with h/o cirrhosis who presents with obtundation and severe REVA REVA: - Unclear etiology, likely prerenal, HRS a consideration as well - Continue midodrine, levophed to MAP 65, albumin 25% q8h Hepatic encephelopathy - Resolved Cirrohsis; - Lactulose/rifaxamin - Hold diuretics and propranolol Anemia - From cirrhosis, no clinical report of bleeding Metabolic acidosis: - Likely from renal failure and respiratory alkalosis Continue ICU Result Diagram: 02/04/193 02/04/19442 Results 24hrs Laboratory Tests Test 02/04/19 04:43 02/04/19 05:19 02/04/19 13:37 02/04/19 14:30 White Blood 4.6 L Count Red Blood Count 2.25 L Hemoglobin 6.8 *L Hematocrit 21.3 L Mean Corpuscular 94.7 Volume Mean Corpuscular 30.2 Hemoglobin Mean Corpuscular 31.9 L Hemoglobin Dominique nt Red Cell 19.0 H Distribution Width Platelet Count 62 L Mean Platelet 11.3 H Volume Immature 0.400 Granulocytes % Neutrophils % 62.4 Lymphocytes % 20.0 Monocytes % 11.0 Eosinophils % 5.6 Basophils % 0.6 Nucleated Red 0.0 Blood Cells % Immature 0.020 Granulocytes # Neutrophils # 2.9 Lymphocytes # 0.9 Monocytes # 0.5 Eosinophils # 0.3 Basophils # 0.0 Nucleated Red 0.0 Blood Cells # Sodium Level 141 Potassium Level 3.3 L Chloride Level 115 H Carbon Dioxide 12 L Level Anion Gap 14 H Blood Urea 56 H Nitrogen Creatinine 3.07 H Est Glomerular Filtrat Rate mL/min Glucose Level 105 Calcium Level 8.7 Phosphorus Level 4.2 Magnesium Level 1.6 L Total Bilirubin 1.4 H Direct Bilirubin 0.00 Indirect 1.4 H Bilirubin Aspartate Amino 19 Transf (AST/SGOT ) Alanine 19 Aminotransferase (ALT/SGPT) Alkaline 55 Phosphatase Total Protein 5.7 L Albumin 3.6 Globulin 2.10 Albumin/Globulin 1.71 Ratio Lab Scanned BLOOD TRANSFUSI Report ON Prothrombin Time 20.8 #H Prothrombin Time 1.6 Ratio INR 1.78 International Normalized Ratio Body Fluid Type PARACENTHESIS Body Fluid 1000.0 Volume Body Fluid Color YELLOW Body Fluid CLEAR Appearance Body Fluid WBC 44 Body Fluid RBC 0 (Auto) Body Fluid 11.3 Polynuclear WBCs (%) Body Fluid 88.7 Mononuclear Cells % Auto Subjective 24 Hr Interval Summary Free Text/Dictation Paracentesis was performed today per GI, 1 L removed Mentation remains at baseline Renal function stable Exam/Review of Systems Exam Vitals Vital Signs Date Temp Pulse Resp B/P (MAP) Pulse Ox O2 O2 Flow FiO2 Time Delivery Rate 02/04/19 64 16:00 02/04/19 16 110/54 100 12:15 (72) 02/04/19 98.0 Room Air 12:00 02/02/19 01:00 Intake and Output 02/03/19 02/03/19 02/04/19 1515:00 23:00 07:00 IntakeIntake Total 1242.4 ml 933.70 ml 553.225 ml OutputOutput Total 185 ml 205 ml 205 ml BalanceBalance 1057.4 ml 728.70 ml 348.225 ml Constitutional: alert, oriented, well developed Psych: no complaints, nl mood/affect Head: normocephalic, atraumatic Eyes: nl conjunctiva, EOMI, nl lids, nl sclera, PERRL ENMT: nl external ears & nose, nl lips & teeth, nl nasal mucosa & septum Neck: supple, non-tender Respiratory: clear to auscultation, normal air movement Cardiovascular: regular rate and rhythm, nl pulses Gastrointestinal: soft, nl liver, spleen, non-tender Musculoskeletal: nl extremities to inspection, nl gait and stance Extremities: normal pulses Neurological: CELL BUILDER II-XII intact, nl mental status, nl speech, nl strength Skin: nl turgor; No rash or lesions Lymph: nl lymph nodes Results Results 24hrs Laboratory Tests Test 02/04/19 04:43 02/04/19 05:19 02/04/19 13:37 02/04/19 14:30 White Blood 4.6 L Count Red Blood Count 2.25 L Hemoglobin 6.8 *L Hematocrit 21.3 L Mean Corpuscular 94.7 Volume Mean Corpuscular 30.2 Hemoglobin Mean Corpuscular 31.9 L Hemoglobin Dominique nt Red Cell 19.0 H Distribution Width Platelet Count 62 L Mean Platelet 11.3 H Volume Immature 0.400 Granulocytes % Neutrophils % 62.4 Lymphocytes % 20.0 Monocytes % 11.0 Eosinophils % 5.6 Basophils % 0.6 Nucleated Red 0.0 Blood Cells % Immature 0.020 Granulocytes # Neutrophils # 2.9 Lymphocytes # 0.9 Monocytes # 0.5 Eosinophils # 0.3 Basophils # 0.0 Nucleated Red 0.0 Blood Cells # Sodium Level 141 Potassium Level 3.3 L Chloride Level 115 H Carbon Dioxide 12 L Level Anion Gap 14 H Blood Urea 56 H Nitrogen Creatinine 3.07 H Est Glomerular Filtrat Rate mL/min Glucose Level 105 Calcium Level 8.7 Phosphorus Level 4.2 Magnesium Level 1.6 L Total Bilirubin 1.4 H Direct Bilirubin 0.00 Indirect 1.4 H Bilirubin Aspartate Amino 19 Transf (AST/SGOT ) Alanine 19 Aminotransferase (ALT/SGPT) Alkaline 55 Phosphatase Total Protein 5.7 L Albumin 3.6 Globulin 2.10 Albumin/Globulin 1.71 Ratio Lab Scanned BLOOD TRANSFUSI Report ON Prothrombin Time 20.8 #H Prothrombin Time 1.6 Ratio INR 1.78 International Normalized Ratio Body Fluid Type PARACENTHESIS Body Fluid 1000.0 Volume Body Fluid Color YELLOW Body Fluid CLEAR Appearance Body Fluid WBC 44 Body Fluid RBC 0 (Auto) Body Fluid 11.3 Polynuclear WBCs (%) Body Fluid 88.7 Mononuclear Cells % Auto Medications Medication Current Medications Piperacillin Sod/ Tazobactam Sod 50 ml @ 100 mls/hr Q8 IVPB Last administered on 02/04/19at 14:16; Admin Dose 100 MLS/HR; Start 01/30/19 at 22:00 Rifaximin (Xifaxan) 550 mg BID PO Last administered on 02/04/19 08:17; Admin Dose 550 MG; Start 01/30/19 at 21:00 Heparin Sodium (Porcine) (Heparin (5000 Units/1ml)) 5,000 unit Q12 SC Last administered on 02/04/19at 08:19; Admin Dose 5,000 UNIT; Start 01/30/19 at 21:00 Norepinephrine 250 ml @ 1.875 mls/ hr TITRATE IV Last administered on 02/04/19at 14:17; Admin Dose 5.625 MLS/HR; Start 01/30/19 at 22:30 Sevelamer Carbonate (Renvela) 1,600 mg WITH MEALS PO Last administered on 02/04/19 12:41; Admin Dose 1,600 MG; Start 01/31/19 at 11:30 Midodrine (Proamatine) 5 mg Q8 PO Last administered on 02/04/19 14:17; Admin Dose 5 MG; Start 01/31/19 at 09:30 Citric Acid/ Sodium Citrate (Bicitra) 30 ml Q8 PO Last administered on 02/04/19 14:16; Admin Dose 30 ML; Start 02/02/19 at 08:30 Sodium Chloride 1,000 ml @ 50 mls/hr Q20H IV Last administered on 02/03/19 23:23; Admin Dose 50 MLS/HR; Start 02/02/19 at 08:00 Lactulose (Enulose) 20 gm BID PO Last administered on 02/04/19 08:16; Admin Dose 20 GM; Start 02/02/19 at 21:00 Morphine Sulfate (morphine) 1 mg Q4H PRN IV SEVERE PAIN LEVEL 7-10 Last administered on 02/04/19 06:03; Admin Dose 1 MG; Start 02/04/19 at 05:30 Albumin Human 100 ml @ 100 mls/hr Q8H IV Last administered on 02/04/19 08:18; Admin Dose 100 MLS/HR; Start 02/04/19 at 08:00; Stop 02/05/19 at 00:59 ALICIA SHARP MD Feb 04, 2019 16:55
[2019-02-04] MEDS ORDERED: CEPASTAT LOZENGE MT PRN (19:00)
[2019-02-04] MEDS: SOD CHLORIDE 0.45% 1,000 ML IV SCH (19:19)
[2019-02-05] VITALS (93 sets, daily range): BP systolic 76–123; BP diastolic 38–78; PULSE 63–83; RESP 12–29
[2019-02-05] MEDS: MIDODRINE 5 MG TAB PO SCH ×3 (05:58→21:19)
[2019-02-05] MEDS: CITRIC ACID/NA CITRATE 30 ML CUP PO SCH ×3 (05:58→20:58)
--- NOTE | 2019-02-05 07:59 | PN ---
DATE: 02/05/2019 SUBJECTIVE: The patient is critically ill on pressor support. The patient is receiving IV albumin. Urinary output has been marginal. No other acute events noted. No hemoptysis, hematemesis, or fang tochezia. OBJECTIVE: VITAL SIGNS: Blood pressure is 91/78, respirations 20, pulse 77, temperature 98.6. HEENT: Head is normocephalic. NECK: Supple. HEART: Regular rate. LUNGS: Show diminished breath sounds at the base. ABDOMEN: Soft, nontender to palpation without rebound or guarding. EXTREMITIES: Negative for clubbing, cyanosis. Trace edema. DERMATOLOGIC: No rashes. MUSCULOSKELETAL: No joint effusion. NEUROLOGIC: No change in exam. MEDICATIONS: Reviewed. LABORATORY DATA: Shows sodium 143, potassium 3.6, bicarbonate 14, BUN 52, creatinine 2.81. White co unt 5.0, hemoglobin 7.4, platelet count is 53. The patient is status post paracentesis. ASSESSMENT AND PLAN: 1. Nonoliguric acute kidney injury with previous baseline creatinine of 0.7 mg/dL. Etiology of acut e kidney injury is multifactorial secondary to hemodynamics, acute tubular necrosis due to shock. Th e patient's renal function has slowly been improving with supportive care, IV fluids, antibiotic ther apy. We will continue current treatment plan. Continue pressor support to maintain MAP of 65. Cont inue IV albumin for volume expansion. Continue to renally dose all medicines and avoid nephrotoxins. 2. Hypokalemia, improved. Continue to monitor and replete. 3. Hypomagnesemia. Continue to monitor and replete. 4. Metabolic acidosis secondary to acute kidney injury. The patient's bicarbonate levels are improv ing. Continue Bicitra. 5. Hypernatremia, improved. 6. Lactic acidosis secondary to shock, improved. 7. Septic shock secondary to possible SBP, urinary tract infection. Continue current antibiotic reg imen. Continue pressor support. 8. Acute encephalopathy, etiology is toxic metabolic. Continue to monitor. 9. Decompensated cirrhosis. The patient is status post paracentesis. Continue to monitor. Follow up with GI. 10. Anemia. Continue to monitor hemoglobin and hematocrit levels. The patient is status post blood transfusion. 11. Mineral bone disorder, monitor calcium and phosphorus levels. Please note I spent over 30 minutes of critical care time with this patient. Dictated By: ZOË PORTER/ITZEL Conf#: [id number] DID#: [id number] CC: ALICIA SHARP MD; ZOË FUCHS DO;*EndCC*
[2019-02-05] MEDS ORDERED: ALBUMIN HUMAN 25% 100 ML IV ONE (08:00)
[2019-02-05] MEDS: SEVELAMER CARBONATE 800 MG TABLET PO SCH ×3 (08:41→17:34)
[2019-02-05] MEDS: RIFAXIMIN 550 MG TAB PO SCH ×2 (08:41→21:18)
[2019-02-05] MEDS: LACTULOSE 30ML CUP PO SCH ×2 (08:41→20:58)
[2019-02-05] MEDS: HEPARIN 5,000 UNIT/1 ML VIAL SC SCH (09:00)
--- NOTE | 2019-02-05 13:56 | PN ---
Date/Time of Note Date/Time of Note DATE: 02/05/19 TIME: 13:54 Assessment/Plan VTE Prophylaxis Risk score (from Ns)>0 risk: 10 SCD applied (from Ns): Yes Pharmacological prophylaxis: NA/contraindicated Pharm contraindication: bleeding Lines/Catheters IV Catheter Type (from Nrsg): Central Line Central line still needed: Yes (meds) Urinary Cath still in place: Yes Reason Cath still needed: other (indicate) (monitor output) Assessment/Plan Hospital Course Hospital Course Assessment: Hepatic encephalopathy Liver cirrhosis with ascites/post paracentesis x2 Acute renal failure/rule out hepatorenal syndrome Anemia likely multifactorial Plan: 2gm NA diet Continue lactulose and rifaximin Continue antibiotics Nephrology care Monitor H/H, transfuse as needed. No overt signs of GI bleed Status post paracentesis with 1.3 L removed-means negative for SBP Patient seen in collaboration with Dr. Avilez/Amari Subjective: Patient states she is feeling better today appetite is poor but she is attempting to eat some nausea/vomiting, abdominal pain. no overt signs of gi bleed hemoglobin now 7.4 status post blood transfusion. we will continue to monitor Exam PHYSICAL EXAMINATION: GENERAL: Well developed, well nourished, alert & oriented x 3, in no acute distress NECK: Supple, no masses CHEST: Inspection within normal limits. CARDIOVASCULAR: Heart: Regular rate and rhythm RESPIRATORY: Lungs clear to auscultation and percussion, no wheezing, no rubs GASTROINTESTINAL AND LIVER: Abdomen: Soft, non tenderness, mildly distended, no hernias, no masses, no organomegaly, moderate ascites, no guarding, no rebound tenderness, normoactive bowel sounds. Rectal: Deferred. GENITOURINARY: [Female genitalia within normal limits.] EXTREMITIES: No cyanosis, clubbing. Result Diagram: 02/05/19 0419 02/05/19 0419 Results 24hrs Laboratory Tests Test 02/04/19 14:30 02/05/19 04:19 02/05/19 05:10 Body Fluid Type PARACENTHESIS Body Fluid Volume 1000.0 Body Fluid Color YELLOW Body Fluid Appearance CLEAR Body Fluid WBC 44 Body Fluid RBC (Auto) 0 Body Fluid Polynuclear 11.3 WBCs (%) Body Fluid Mononuclear 88.7 Cells % Auto White Blood Count 5.0 Red Blood Count 2.49 L Hemoglobin 7.4 L Hematocrit 22.8 L Mean Corpuscular Volume 91.6 Mean Corpuscular Hemoglobin 29.7 Mean Corpuscular 32.5 Hemoglobin Concent Red Cell Distribution Width 18.6 H Platelet Count 53 L Mean Platelet Volume 11.0 H Immature Granulocytes % 0.600 H Neutrophils % 66.8 Lymphocytes % 15.9 Monocytes % 11.7 H Eosinophils % 4.4 Basophils % 0.6 Nucleated Red Blood Cells % 0.0 Immature Granulocytes # 0.030 Neutrophils # 3.3 Lymphocytes # 0.8 Monocytes # 0.6 Eosinophils # 0.2 Basophils # 0.0 Nucleated Red Blood Cells # 0.0 Sodium Level 143 Potassium Level 3.6 Chloride Level 112 H Carbon Dioxide Level 14 L Anion Gap 17 H Blood Urea Nitrogen 52 H Creatinine 2.81 H Est Glomerular Filtrat Rate mL/min Glucose Level 96 Calcium Level 8.9 Phosphorus Level 3.6 Magnesium Level 2.0 Lab Scanned Report BLOOD TRANSFUSION Exam/Review of Systems Exam Vitals Vital Signs Date Temp Pulse Resp B/P (MAP) Pulse Ox O2 O2 Flow FiO2 Time Delivery Rate 02/05/19 74 15 97/47 (64) 100 13:15 02/05/19 99.3 Room Air 12:00 02/02/19 01:00 Intake and Output 02/04/19 02/04/19 02/05/19 1515:00 23:00 07:00 IntakeIntake Total 719.8 ml 713.70 ml 530.00 ml OutputOutput Total 200 ml 170 ml 170 ml BalanceBalance 519.8 ml 543.70 ml 360.00 ml Results Results 24hrs Laboratory Tests Test 02/04/19 14:30 02/05/19 04:19 02/05/19 05:10 Body Fluid Type PARACENTHESIS Body Fluid Volume 1000.0 Body Fluid Color YELLOW Body Fluid Appearance CLEAR Body Fluid WBC 44 Body Fluid RBC (Auto) 0 Body Fluid Polynuclear 11.3 WBCs (%) Body Fluid Mononuclear 88.7 Cells % Auto White Blood Count 5.0 Red Blood Count 2.49 L Hemoglobin 7.4 L Hematocrit 22.8 L Mean Corpuscular Volume 91.6 Mean Corpuscular Hemoglobin 29.7 Mean Corpuscular 32.5 Hemoglobin Concent Red Cell Distribution Width 18.6 H Platelet Count 53 L Mean Platelet Volume 11.0 H Immature Granulocytes % 0.600 H Neutrophils % 66.8 Lymphocytes % 15.9 Monocytes % 11.7 H Eosinophils % 4.4 Basophils % 0.6 Nucleated Red Blood Cells % 0.0 Immature Granulocytes # 0.030 Neutrophils # 3.3 Lymphocytes # 0.8 Monocytes # 0.6 Eosinophils # 0.2 Basophils # 0.0 Nucleated Red Blood Cells # 0.0 Sodium Level 143 Potassium Level 3.6 Chloride Level 112 H Carbon Dioxide Level 14 L Anion Gap 17 H Blood Urea Nitrogen 52 H Creatinine 2.81 H Est Glomerular Filtrat Rate mL/min Glucose Level 96 Calcium Level 8.9 Phosphorus Level 3.6 Magnesium Level 2.0 Lab Scanned Report BLOOD TRANSFUSION Medications Medication Current Medications Rifaximin (Xifaxan) 550 mg BID PO Last administered on 02/05/19 08:41; Admin Dose 550 MG; Start 01/30/19 at 21:00 Heparin Sodium (Porcine) (Heparin (5000 Units/1ml)) 5,000 unit Q12 SC Last administered on 02/04/19 21:31; Admin Dose 5,000 UNIT; Start 01/30/19 at 21:00; Status Hold Norepinephrine 250 ml @ 1.875 mls/ hr TITRATE IV Last administered on 02/04/19 14:17; Admin Dose 5.625 MLS/HR; Start 01/30/19 at 22:30 Sevelamer Carbonate (Renvela) 1,600 mg WITH MEALS PO Last administered on 02/05/19 12:40; Admin Dose 1,600 MG; Start 01/31/19 at 11:30 Midodrine (Proamatine) 5 mg Q8 PO Last administered on 02/05/19 12:41; Admin Dose 5 MG; Start 01/31/19 at 09:30 Citric Acid/ Sodium Citrate (Bicitra) 30 ml Q8 PO Last administered on 02/05/19 05:58; Admin Dose 30 ML; Start 02/02/19 at 08:30 Sodium Chloride 1,000 ml @ 50 mls/hr Q20H IV Last administered on 02/04/19 19:19; Admin Dose 50 MLS/HR; Start 02/02/19 at 08:00 Lactulose (Enulose) 20 gm BID PO Last administered on 02/05/19 08:41; Admin Dose 20 GM; Start 02/02/19 at 21:00 Morphine Sulfate (morphine) 1 mg Q4H PRN IV SEVERE PAIN LEVEL 7-10 Last administered on 02/04/19at 06:03; Admin Dose 1 MG; Start 02/04/19 at 05:30 Phenol (Cepastat Lozenge) 1 lozenge Q1H PRN MT PAIN AND/OR INFLAMMATION; Start 02/04/19 at 19:00 REANNA LEUNG Feb 05, 2019 13:56
[2019-02-05] MEDS: SOD CHLORIDE 0.45% 1,000 ML IV SCH (16:13)
--- NOTE | 2019-02-05 17:02 | PN ---
Date/Time of Note Date/Time of Note DATE: 02/05/19 TIME: 17:01 Assessment/Plan VTE Prophylaxis Risk score (from Nsg)>0 risk: 10 SCD applied (from Nsg): Yes Pharmacological prophylaxis: heparin Lines/Catheters IV Catheter Type (from Nrsg): Central Line Central line still needed: Yes Urinary Cath still in place: Yes Reason Cath still needed: urinary retention Assessment/Plan Hospital Course 78 yo female with h/o cirrhosis who presents with obtundation and severe REVA REVA: - Unclear etiology, likely prerenal, HRS a consideration as well - Continue midodrine and increase to 10 TID, levophed to MAP 65, albumin 25% q8h, isotonic fluids Hepatic encephelopathy - Resolved Cirrohsis; - Lactulose/rifaxamin - Hold diuretics and propranolol Anemia - From cirrhosis, no clinical report of bleeding Metabolic acidosis: - Likely from renal failure and respiratory alkalosis Continue ICU Result Diagram: 02/05/19 0419 02/05/19 0419 Results 24hrs Laboratory Tests Test 02/05/19 04:19 02/05/19 05:10 White Blood Count 5.0 Red Blood Count 2.49 L Hemoglobin 7.4 L Hematocrit 22.8 L Mean Corpuscular Volume 91.6 Mean Corpuscular Hemoglobin 29.7 Mean Corpuscular Hemoglobin Concent 32.5 Red Cell Distribution Width 18.6 H Platelet Count 53 L Mean Platelet Volume 11.0 H Immature Granulocytes % 0.600 H Neutrophils % 66.8 Lymphocytes % 15.9 Monocytes % 11.7 H Eosinophils % 4.4 Basophils % 0.6 Nucleated Red Blood Cells % 0.0 Immature Granulocytes # 0.030 Neutrophils # 3.3 Lymphocytes # 0.8 Monocytes # 0.6 Eosinophils # 0.2 Basophils # 0.0 Nucleated Red Blood Cells # 0.0 Sodium Level 143 Potassium Level 3.6 Chloride Level 112 H Carbon Dioxide Level 14 L Anion Gap 17 H Blood Urea Nitrogen 52 H Creatinine 2.81 H Est Glomerular Filtrat Rate mL/min Glucose Level 96 Calcium Level 8.9 Phosphorus Level 3.6 Magnesium Level 2.0 Lab Scanned Report BLOOD TRANSFUSION Subjective 24 Hr Interval Summary Free Text/Dictation Continues on low dose levophed Renal function continues to improve Complains of mouth pain Exam/Review of Systems Exam Vitals Vital Signs Date Temp Pulse Resp B/P (MAP) Pulse Ox O2 O2 Flow FiO2 Time Delivery Rate 3/21/19 67 17 118/51 100 16:45 (73) 02/05/19 99.3 Room Air 16:00 02/02/19 01:00 Intake and Output 02/04/19 02/04/19 02/05/19 1515:00 23:00 07:00 IntakeIntake Total 719.8 ml 713.70 ml 530.00 ml OutputOutput Total 200 ml 170 ml 170 ml BalanceBalance 519.8 ml 543.70 ml 360.00 ml Constitutional: alert, oriented, well developed Psych: no complaints, nl mood/affect Head: normocephalic, atraumatic Eyes: nl conjunctiva, EOMI, nl lids, nl sclera, PERRL ENMT: nl external ears & nose, nl lips & teeth, nl nasal mucosa & septum Neck: supple, non-tender Respiratory: clear to auscultation, normal air movement Cardiovascular: regular rate and rhythm, nl pulses Gastrointestinal: soft, nl liver, spleen, non-tender Musculoskeletal: nl extremities to inspection, nl gait and stance Extremities: normal pulses Neurological: SUBGRADE TESTER II-XII intact, nl mental status, nl speech, nl strength Skin: nl turgor; No rash or lesions Lymph: nl lymph nodes Results Results 24hrs Laboratory Tests Test 02/05/19 04:19 02/05/19 05:10 White Blood Count 5.0 Red Blood Count 2.49 L Hemoglobin 7.4 L Hematocrit 22.8 L Mean Corpuscular Volume 91.6 Mean Corpuscular Hemoglobin 29.7 Mean Corpuscular Hemoglobin Concent 32.5 Red Cell Distribution Width 18.6 H Platelet Count 53 L Mean Platelet Volume 11.0 H Immature Granulocytes % 0.600 H Neutrophils % 66.8 Lymphocytes % 15.9 Monocytes % 11.7 H Eosinophils % 4.4 Basophils % 0.6 Nucleated Red Blood Cells % 0.0 Immature Granulocytes # 0.030 Neutrophils # 3.3 Lymphocytes # 0.8 Monocytes # 0.6 Eosinophils # 0.2 Basophils # 0.0 Nucleated Red Blood Cells # 0.0 Sodium Level 143 Potassium Level 3.6 Chloride Level 112 H Carbon Dioxide Level 14 L Anion Gap 17 H Blood Urea Nitrogen 52 H Creatinine 2.81 H Est Glomerular Filtrat Rate mL/min Glucose Level 96 Calcium Level 8.9 Phosphorus Level 3.6 Magnesium Level 2.0 Lab Scanned Report BLOOD TRANSFUSION Medications Medication Current Medications Rifaximin (Xifaxan) 550 mg BID PO Last administered on 02/05/19 08:41; Admin Dose 550 MG; Start 01/30/19 at 21:00 Heparin Sodium (Porcine) (Heparin (5000 Units/1ml)) 5,000 unit Q12 SC Last administered on 02/04/19 21:31; Admin Dose 5,000 UNIT; Start 01/30/19 at 21:00; Status Hold Norepinephrine 250 ml @ 1.875 mls/ hr TITRATE IV Last administered on 02/04/19 14:17; Admin Dose 5.625 MLS/HR; Start 01/30/19 at 22:30 Sevelamer Carbonate (Renvela) 1,600 mg WITH MEALS PO Last administered on 02/05/19 12:40; Admin Dose 1,600 MG; Start 01/31/19 at 11:30 Citric Acid/ Sodium Citrate (Bicitra) 30 ml Q8 PO Last administered on 02/05/19 05:58; Admin Dose 30 ML; Start 02/02/19 at 08:30 Sodium Chloride 1,000 ml @ 50 mls/hr Q20H IV Last administered on 02/05/19 16:13; Admin Dose 50 MLS/HR; Start 02/02/19 at 08:00 Lactulose (Enulose) 20 gm BID PO Last administered on 02/05/19 08:41; Admin Dose 20 GM; Start 02/02/19 at 21:00 Morphine Sulfate (morphine) 1 mg Q4H PRN IV SEVERE PAIN LEVEL 7-10 Last administered on 02/04/19 06:03; Admin Dose 1 MG; Start 02/04/19 at 05:30 Phenol (Cepastat Lozenge) 1 lozenge Q1H PRN MT PAIN AND/OR INFLAMMATION; Start 02/04/19 at 19:00 Midodrine (Proamatine) 10 mg Q8 PO ; Start 02/05/19 at 22:00 ALICIA SHARP MD Feb 05, 2019 17:02
[2019-02-06] VITALS (79 sets, daily range): BP systolic 81–121; BP diastolic 40–59; PULSE 61–83; RESP 11–37
[2019-02-06] MEDS: NORepinephrine 8MG/250 ML (PMX 250 ML IV SCH (03:43)
[2019-02-06] MEDS: CITRIC ACID/NA CITRATE 30 ML CUP PO SCH ×3 (05:42→21:23)
[2019-02-06] MEDS: MIDODRINE 5 MG TAB PO SCH ×3 (05:42→21:23)
--- NOTE | 2019-02-06 08:04 | PN ---
DATE: 02/06/2019 SUBJECTIVE: The patient is critically ill on pressor support. No other acute events noted. OBJECTIVE: VITAL SIGNS: Blood pressure 99/48, respirations 13, pulse 69, temperature 98.6. HEENT: Head is normocephalic. NECK: Supple. HEART: Regular rate. LUNGS: Show diminished breath sounds at base. ABDOMEN: Soft, nontender to palpation without rebound or guarding. EXTREMITIES: Negative for clubbing, cyanosis. Trace edema. DERMATOLOGIC: No rashes. MUSCULOSKELETAL: No joint effusion. NEUROLOGIC: No change in exam. MEDICATIONS: Reviewed. LABORATORY DATA: Shows sodium 141, potassium 3.5, chloride 111, bicarbonate 15, BUN 51, creatinine 2 .45. White count 7.0, hemoglobin 8.2, platelet count is 67. ASSESSMENT AND PLAN: 1. Nonoliguric acute kidney injury with previous baseline creatinine of 0.7 mg/dL. Etiology of acut e kidney injury is secondary to hemodynamics, possible acute tubular necrosis due to shock. The zhao ent's renal function has slowly been improving with IV fluids, supportive care and antibiotic therapy , pressor support. At this point, continue current medical management. Continue to wean off pressor s. Continue to renally dose all meds. Continue supportive care. 2. Hypokalemia, improved. Continue to monitor and replete. 3. Hypomagnesemia. Continue to monitor and replete. 4. Metabolic acidosis secondary to acute kidney injury. The patient's bicarbonate levels have been improving. Continue Bicitra. 5. Hypernatremia, improved. Continue hypertonic fluids. 6. Septic shock, felt to be secondary to spontaneous bacterial peritonitis urinary tract infection. Continue current antibiotic regimen. Continue pressor support. 7. Acute encephalopathy, etiology toxic metabolic. Continue to monitor. 8. Decompensated cirrhosis. The patient is status post paracentesis. Continue to monitor, continue supportive care. 9. Anemia. Monitor hemoglobin and hematocrit levels. Will transfuse as needed. 10. Mineral bone disorder, monitor calcium and phosphorus levels. Dictated By: ZOË PORTER/NTS Conf#: [id number] DID#: [id number] CC: ALICIA SHARP MD;*EndCC*
[2019-02-06] MEDS: RIFAXIMIN 550 MG TAB PO SCH ×2 (08:57→21:23)
[2019-02-06] MEDS: SEVELAMER CARBONATE 800 MG TABLET PO SCH ×3 (08:58→18:33)
[2019-02-06] MEDS: LACTULOSE 30ML CUP PO SCH ×2 (08:58→21:23)
[2019-02-06] MEDS: SOD CHLORIDE 0.45% 1,000 ML IV SCH (10:12)
--- NOTE | 2019-02-06 12:09 | PN ---
Date/Time of Note Date/Time of Note DATE: 02/06/19 TIME: 11:58 Assessment/Plan VTE Prophylaxis Risk score (from Ns)>0 risk: 8 SCD applied (from [facility] [place]): Yes Pharmacological prophylaxis: NA/contraindicated Pharm contraindication: liver dx Lines/Catheters IV C[facility]ter Type (from [facility]): Central Line Central line still needed: Yes Urinary Cath still in place: Yes Reason Cath still needed: other (indicate) Assessment/Plan Assessment/Plan Assessment: Hepatic encephalopathy Liver cirrhosis with ascites/post paracentesis x2 Acute renal failure/rule out hepatorenal syndrome Anemia likely multifactorial Plan: 2% lidocaine viscous oral solution -swish and spit out -for mouth canker sores 2gm NA diet Continue lactulose and rifaximin Continue antibiotics Nephrology care Monitor H/H, transfuse as needed. No overt signs of GI bleed Status post paracentesis with 1.3 L removed-means negative for SBP Patient seen in collaboration with Dr. Avilez/Amari Subjective: Patient states she is feeling well today, Denies abdominal pain, nausea or vomiting. Patient had 2 bowel movements yesterday and one bowel movement today on lactulose. Hemoglobin is trending up. Patient is complaining of oral pain from all sores and poor appetite. Patient has canker sores on the exam. Will order viscous lidocaine Exam PHYSICAL EXAMINATION: GENERAL: Well developed, well nourished, alert & oriented x 3, in no acute distress NECK: Supple, no masses CHEST: Inspection within normal limits. CARDIOVASCULAR: Heart: Regular rate and rhythm RESPIRATORY: Lungs clear to auscultation and percussion, no wheezing, no rubs GASTROINTESTINAL AND LIVER: Abdomen: Soft, non tenderness, mildly distended, no hernias, no masses, no organomegaly, moderate ascites, no guarding, no rebound tenderness, normoactive bowel sounds. Rectal: Deferred. GENITOURINARY: [Female genitalia within normal limits. EXTREMITIES: No cyanosis, clubbing. Result Diagram: 02/06/190 02/06/19 0400 Results 24hrs Laboratory Tests Test 02/06/19 04:00 White Blood Count 7.0 # Red Blood Count 2.65 L Hemoglobin 8.2 L Hematocrit 24.6 L Mean Corpuscular Volume 92.8 Mean Corpuscular Hemoglobin 30.9 Mean Corpuscular Hemoglobin Concent 33.3 Red Cell Distribution Width 18.9 H Platelet Count 67 #L Mean Platelet Volume 10.9 H Immature Granulocytes % 0.300 Neutrophils % 68.9 Lymphocytes % 12.3 L Monocytes % 12.4 H Eosinophils % 5.7 Basophils % 0.4 Nucleated Red Blood Cells % 0.0 Immature Granulocytes # 0.020 Neutrophils # 4.8 Lymphocytes # 0.9 Monocytes # 0.9 Eosinophils # 0.4 Basophils # 0.0 Nucleated Red Blood Cells # 0.0 Sodium Level 141 Potassium Level 3.5 Chloride Level 111 H Carbon Dioxide Level 15 L Anion Gap 15 H Blood Urea Nitrogen 51 H Creatinine 2.45 H Est Glomerular Filtrat Rate mL/min Glucose Level 88 Calcium Level 8.8 Phosphorus Level 3.0 Magnesium Level 1.9 CC: KENAN AVILEZ MD ; Exam/Review of Systems Exam Vitals Vital Signs Date Temp Pulse Resp B/P (MAP) Pulse Ox O2 O2 Flow FiO2 Time Delivery Rate 02/06/19 73 17 99/48 (65) 100 10:00 02/06/19 98.6 Room Air 08:00 Intake and Output 02/05/19 02/05/19 02/06/19 1515:00 23:00 07:00 IntakeIntake Total 593.00 ml 664.90 ml 522.750 ml OutputOutput Total 185 ml 225 ml 175 ml BalanceBalance 408.00 ml 439.90 ml 347.750 ml Results Results 24hrs Laboratory Tests Test 02/06/19 04:00 White Blood Count 7.0 # Red Blood Count 2.65 L Hemoglobin 8.2 L Hematocrit 24.6 L Mean Corpuscular Volume 92.8 Mean Corpuscular Hemoglobin 30.9 Mean Corpuscular Hemoglobin Concent 33.3 Red Cell Distribution Width 18.9 H Platelet Count 67 #L Mean Platelet Volume 10.9 H Immature Granulocytes % 0.300 Neutrophils % 68.9 Lymphocytes % 12.3 L Monocytes % 12.4 H Eosinophils % 5.7 Basophils % 0.4 Nucleated Red Blood Cells % 0.0 Immature Granulocytes # 0.020 Neutrophils # 4.8 Lymphocytes # 0.9 Monocytes # 0.9 Eosinophils # 0.4 Basophils # 0.0 Nucleated Red Blood Cells # 0.0 Sodium Level 141 Potassium Level 3.5 Chloride Level 111 H Carbon Dioxide Level 15 L Anion Gap 15 H Blood Urea Nitrogen 51 H Creatinine 2.45 H Est Glomerular Filtrat Rate mL/min Glucose Level 88 Calcium Level 8.8 Phosphorus Level 3.0 Magnesium Level 1.9 Medications Medication Current Medications Rifaximin (Xifaxan) 550 mg BID PO Last administered on 02/06/19 08:57; Admin Dose 550 MG; Start 01/30/19 at 21:00 Heparin Sodium (Porcine) (Heparin (5000 Units/1ml)) 5,000 unit Q12 SC Last administered on 02/04/19 21:31; Admin Dose 5,000 UNIT; Start 01/30/19 at 21:00; Status Hold Norepinephrine 250 ml @ 1.875 mls/ hr TITRATE IV Last administered on 02/06/19 03:43; Admin Dose 3.75 MLS/HR; Start 01/30/19 at 22:30 Sevelamer Carbonate (Renvela) 1,600 mg WITH MEALS PO Last administered on 02/06/19 08:58; Admin Dose 1,600 MG; Start 01/31/19 at 11:30 Citric Acid/ Sodium Citrate (Bicitra) 30 ml Q8 PO Last administered on 02/05/19 05:58; Admin Dose 30 ML; Start 02/02/19 at 08:30 Sodium Chloride 1,000 ml @ 50 mls/hr Q20H IV Last administered on 02/06/19 10:12; Admin Dose 50 MLS/HR; Start 02/02/19 at 08:00 Lactulose (Enulose) 20 gm BID PO Last administered on 02/05/19 08:41; Admin Dose 20 GM; Start 02/02/19 at 21:00 Morphine Sulfate (morphine) 1 mg Q4H PRN IV SEVERE PAIN LEVEL 7-10 Last administered on 02/04/19 06:03; Admin Dose 1 MG; Start 02/04/19 at 05:30 Phenol (Cepastat Lozenge) 1 lozenge Q1H PRN MT PAIN AND/OR INFLAMMATION Last administered on 02/05/19 17:34; Admin Dose 1 LOZENGE; Start 02/04/19 at 19:00 Midodrine (Proamatine) 10 mg Q8 PO Last administered on 02/06/19 05:42; Admin Dose 10 MG; Start 02/05/19 at 22:00 CHADD PEREZ NP Feb 06, 2019 12:08
--- NOTE | 2019-02-06 15:35 | PN ---
Date/Time of Note Date/Time of Note DATE: 02/06/19 TIME: 15:35 Assessment/Plan VTE Prophylaxis Risk score (from Nsg)>0 risk: 8 SCD applied (from Nsg): Yes Pharmacological prophylaxis: heparin Lines/Catheters IV Catheter Type (from Nrsg): Central Line Central line still needed: Yes Urinary Cath still in place: Yes Reason Cath still needed: urinary retention Assessment/Plan Hospital Course 78 yo female with h/o cirrhosis who presents with obtundation and severe REVA REVA: - Unclear etiology, likely prerenal, HRS a consideration as well - Continue midodrine and increase to 10 TID, levophed to MAP 65, albumin 25% q8h, isotonic fluids Hepatic encephelopathy - Resolved Cirrohsis; - Lactulose/rifaxamin - Hold diuretics and propranolol Anemia - From cirrhosis, no clinical report of bleeding Metabolic acidosis: - Likely from renal failure and respiratory alkalosis Continue ICU Result Diagram: 02/06/19 0400 02/06/19 0400 Results 24hrs Laboratory Tests Test 02/06/19 04:00 White Blood Count 7.0 # Red Blood Count 2.65 L Hemoglobin 8.2 L Hematocrit 24.6 L Mean Corpuscular Volume 92.8 Mean Corpuscular Hemoglobin 30.9 Mean Corpuscular Hemoglobin Concent 33.3 Red Cell Distribution Width 18.9 H Platelet Count 67 #L Mean Platelet Volume 10.9 H Immature Granulocytes % 0.300 Neutrophils % 68.9 Lymphocytes % 12.3 L Monocytes % 12.4 H Eosinophils % 5.7 Basophils % 0.4 Nucleated Red Blood Cells % 0.0 Immature Granulocytes # 0.020 Neutrophils # 4.8 Lymphocytes # 0.9 Monocytes # 0.9 Eosinophils # 0.4 Basophils # 0.0 Nucleated Red Blood Cells # 0.0 Sodium Level 141 Potassium Level 3.5 Chloride Level 111 H Carbon Dioxide Level 15 L Anion Gap 15 H Blood Urea Nitrogen 51 H Creatinine 2.45 H Est Glomerular Filtrat Rate mL/min Glucose Level 88 Calcium Level 8.8 Phosphorus Level 3.0 Magnesium Level 1.9 Subjective 24 Hr Interval Summary Free Text/Dictation Renal function continues to improved Levophed almost weaned off this AM Patient with no comlaitns aside from mouth still hurts Exam/Review of Systems Exam Vitals Vital Signs Date Temp Pulse Resp B/P (MAP) Pulse Ox O2 O2 Flow FiO2 Time Delivery Rate 02/06/19 71 12:00 02/06/19 17 99/48 (65) 100 10:00 02/06/19 98.6 Room Air 08:00 Intake and Output 02/05/19 02/05/19 02/06/19 1515:00 23:00 07:00 IntakeIntake Total 593.00 ml 664.90 ml 522.750 ml OutputOutput Total 185 ml 225 ml 175 ml BalanceBalance 408.00 ml 439.90 ml 347.750 ml Exam Alert, ortiented RRR Breathign comfortably Abdomen remains distended Results Results 24hrs Laboratory Tests Test 02/06/19 04:00 White Blood Count 7.0 # Red Blood Count 2.65 L Hemoglobin 8.2 L Hematocrit 24.6 L Mean Corpuscular Volume 92.8 Mean Corpuscular Hemoglobin 30.9 Mean Corpuscular Hemoglobin Concent 33.3 Red Cell Distribution Width 18.9 H Platelet Count 67 #L Mean Platelet Volume 10.9 H Immature Granulocytes % 0.300 Neutrophils % 68.9 Lymphocytes % 12.3 L Monocytes % 12.4 H Eosinophils % 5.7 Basophils % 0.4 Nucleated Red Blood Cells % 0.0 Immature Granulocytes # 0.020 Neutrophils # 4.8 Lymphocytes # 0.9 Monocytes # 0.9 Eosinophils # 0.4 Basophils # 0.0 Nucleated Red Blood Cells # 0.0 Sodium Level 141 Potassium Level 3.5 Chloride Level 111 H Carbon Dioxide Level 15 L Anion Gap 15 H Blood Urea Nitrogen 51 H Creatinine 2.45 H Est Glomerular Filtrat Rate mL/min Glucose Level 88 Calcium Level 8.8 Phosphorus Level 3.0 Magnesium Level 1.9 Medications Medication Current Medications Rifaximin (Xifaxan) 550 mg BID PO Last administered on 02/06/19at 08:57; Admin Dose 550 MG; Start 01/30/19 at 21:00 Heparin Sodium (Porcine) (Heparin (5000 Units/1ml)) 5,000 unit Q12 SC Last administered on 02/04/19at 21:31; Admin Dose 5,000 UNIT; Start 01/30/19 at 21:00; Status Hold Norepinephrine 250 ml @ 1.875 mls/ hr TITRATE IV Last administered on 02/06/19at 03:43; Admin Dose 3.75 MLS/HR; Start 01/30/19 at 22:30 Sevelamer Carbonate (Renvela) 1,600 mg WITH MEALS PO Last administered on 02/06/19 12:30; Admin Dose 1,600 MG; Start 01/31/19 at 11:30 Citric Acid/ Sodium Citrate (Bicitra) 30 ml Q8 PO Last administered on 02/06 12:30; Admin Dose 30 ML; Start 02/02/19 at 08:30 Sodium Chloride 1,000 ml @ 50 mls/hr Q20H IV Last administered on 02/06/19 10:12; Admin Dose 50 MLS/HR; Start 02/02/19 at 08:00 Lactulose (Enulose) 20 gm BID PO Last administered on 02/05/19 08:41; Admin Dose 20 GM; Start 02/02/19 at 21:00 Morphine Sulfate (morphine) 1 mg Q4H PRN IV SEVERE PAIN LEVEL 7-10 Last administered on 02/04/19 06:03; Admin Dose 1 MG; Start 02/04/19 at 05:30 Phenol (Cepastat Lozenge) 1 lozenge Q1H PRN MT PAIN AND/OR INFLAMMATION Last administered on 02/05/19 17:34; Admin Dose 1 LOZENGE; Start 02/04/19 at 19:00 Midodrine (Proamatine) 10 mg Q8 PO Last administered on 02/06/19at 12:31; Admin Dose 10 MG; Start 02/05/19 at 22:00 Lidocaine (Xylocaine (Viscous)) 15 ml Q8 PO ; Start 02/06/19 at 14:00 Ascorbic Acid (Vitamin C) 250 mg DAILY PO ; Start 02/07/19 at 09:00 Multivitamins Therapeutic (Theragran) 1 tab DAILY PO ; Start 02/07/19 at 09:00 ALICIA SHARP MD Feb 06, 2019 15:35
[2019-02-06] MEDS: LIDOCAINE 2% VISC 15 ML CUP PO SCH ×2 (18:33→21:30)
[2019-02-06] MEDS: BALSAM PERU/CASTOR OIL 60 GM TUBE TOP SCH (21:22)
[2019-02-07] VITALS (35 sets, daily range): BP systolic 77–115; BP diastolic 36–74; PULSE 59–82; RESP 11–20
[2019-02-07] MEDS: MIDODRINE 5 MG TAB PO SCH ×3 (05:05→22:18)
[2019-02-07] MEDS: LIDOCAINE 2% VISC 15 ML CUP PO SCH ×3 (05:06→15:25)
[2019-02-07] MEDS: CITRIC ACID/NA CITRATE 30 ML CUP PO SCH ×3 (05:06→22:17)
[2019-02-07] MEDS: SEVELAMER CARBONATE 800 MG TABLET PO SCH ×4 (07:55→17:49)
[2019-02-07] MEDS: SOD CHLORIDE 0.45% 1,000 ML IV SCH (08:00)
[2019-02-07] MEDS: ASCORBIC ACID 250 MG TAB PO SCH ×2 (09:00→12:25)
[2019-02-07] MEDS: LACTULOSE 30ML CUP PO SCH ×2 (09:17→20:18)
--- NOTE | 2019-02-07 09:17 | PN ---
DATE: 02/07/2019 SUBJECTIVE: The patient was transferred from intensive care unit to telemetry. No other events over night. OBJECTIVE: VITAL SIGNS: Blood pressure is 109/52, respirations 18, pulse 65, temperature 98.6. HEENT: Head is normocephalic. NECK: Supple. HEART: Regular rate. LUNGS: Show diminished breath sounds at the base. ABDOMEN: Soft, nontender to palpation without rebound or guarding. EXTREMITIES: Negative for clubbing, cyanosis, no edema. DERMATOLOGIC: No rashes. MUSCULOSKELETAL: No joint effusion. NEUROLOGIC: No change in exam. MEDICATIONS: Reviewed. LABORATORY DATA: Shows sodium 139, potassium 3.7, chloride 111, BUN 49, creatinine 2.24. The patien t's CBC was reviewed. ASSESSMENT AND PLAN: 1. Nonoliguric acute kidney injury with previous baseline creatinine of 0.7 mg/dL. Etiology of acut e kidney injury is secondary to hemodynamics, possible acute tubular necrosis. The patient's renal f unction is slowly improving with supportive care and antibiotic therapy and gentle IV hydration. Con tinue current treatment plan. Continue to renally dose all medicines and avoid nephrotoxins. 2. Hyperkalemia, improved. Continue to monitor. 3. Hypomagnesemia. Continue to monitor and replete as needed. 4. Metabolic acidosis secondary to acute kidney injury. The patient's bicarbonate levels are improv ing. Continue Bicitra. 5. Sepsis, status post shock. Etiology is secondary to urinary tract infection, SBP. Continue curr ent antibiotic regimen. 6. Acute encephalopathy, etiology is toxic metabolic. 7. Decompensated cirrhosis. Continue medical management. 8. Anemia. Continue to monitor hemoglobin and hematocrit levels. 9. Mineral bone disorder, monitor calcium and phosphorus levels. Dictated By: ZOË FUCHS DO NR/NTS Conf#: [id number] DID#: [id number] CC: ALICIA SHARP MD; ZOË FUCHS DO;*EndCC*
[2019-02-07] MEDS: RIFAXIMIN 550 MG TAB PO SCH ×2 (09:18→20:19)
[2019-02-07] MEDS: MULTIVITAMINS THERAPEUTIC TAB PO SCH (09:18)
[2019-02-07] MEDS: BALSAM PERU/CASTOR OIL 60 GM TUBE TOP SCH ×2 (09:23→22:37)
--- NOTE | 2019-02-07 15:06 | PN ---
Date/Time of Note Date/Time of Note DATE: 02/07/19 TIME: 14:58 Assessment/Plan VTE Prophylaxis Risk score (from Ns)>0 risk: 8 SCD applied (from Ns): Yes Pharmacological prophylaxis: NA/contraindicated Pharm contraindication: liver dx Lines/Catheters IV Catheter Type (from [facility]): Central Line Central line still needed: Yes Urinary Cath still in place: Yes Reason Cath still needed: other (indicate) Assessment/Plan Assessment/Plan Assessment: Hepatic encephalopathy Liver cirrhosis with ascites/post paracentesis x2 Acute renal failure/rule out hepatorenal syndrome Anemia likely multifactorial Plan: 2% lidocaine viscous oral solution -swish and spit out -for mouth canker sores 2gm NA diet Continue lactulose and rifaximin Titrate lactulose to 3 bowel movements a day Continue antibiotics Nephrology care Monitor H/H, transfuse as needed. No overt signs of GI bleed Status post paracentesis with 1.3 L removed-means negative for SBP Patient seen in collaboration with Dr. Avilez/Amari Subjective: Patient has been transferred out of ICU, she is feeling well. Denies abdominal pain, nausea or vomiting. Complaining of poor appetite due to oral canker sores. We will continue Viscous Lidocaine for analgesia. Patient had 1 loose bowel movement on lactulose. Hemoglobin is slightly lower today. No evidence of GI bleeding. Continue observation. Exam PHYSICAL EXAMINATION: GENERAL: Well developed, well nourished, alert & oriented x 3, in no acute distress NECK: Supple, no masses CHEST: Inspection within normal limits. CARDIOVASCULAR: Heart: Regular rate and rhythm RESPIRATORY: Lungs clear to auscultation and percussion, no wheezing, no rubs GASTROINTESTINAL AND LIVER: Abdomen: Soft, non tenderness, mildly distended, no hernias, no masses, no organomegaly, moderate ascites, no guarding, no rebound tenderness, normoactive bowel sounds. Rectal: Deferred. GENITOURINARY: Female genitalia within normal limits. EXTREMITIES: No cyanosis, clubbing. Result Diagram: 02/07/1942902/07/190 Results 24hrs Laboratory Tests Test 02/07/19 04:30 White Blood Count 5.8 Red Blood Count 2.53 L Hemoglobin 7.8 L Hematocrit 23.6 L Mean Corpuscular Volume 93.3 Mean Corpuscular Hemoglobin 30.8 Mean Corpuscular Hemoglobin Concent 33.1 Red Cell Distribution Width 18.7 H Platelet Count 51 #L Mean Platelet Volume 10.4 Immature Granulocytes % 0.500 H Neutrophils % 71.8 Lymphocytes % 12.2 L Monocytes % 10.3 Eosinophils % 5.0 Basophils % 0.2 Nucleated Red Blood Cells % 0.0 Immature Granulocytes # 0.030 Neutrophils # 4.2 Lymphocytes # 0.7 L Monocytes # 0.6 Eosinophils # 0.3 Basophils # 0.0 Nucleated Red Blood Cells # 0.0 Sodium Level 139 Potassium Level 3.7 Chloride Level 111 H Carbon Dioxide Level 16 L Anion Gap 12 Blood Urea Nitrogen 49 H Creatinine 2.24 H Est Glomerular Filtrat Rate mL/min Glucose Level 90 Calcium Level 8.6 Phosphorus Level 3.1 Magnesium Level 1.8 CC: KENAN AVILEZ MD ; Exam/Review of Systems Exam Vitals Vital Signs Date Temp Pulse Resp B/P (MAP) Pulse Ox O2 O2 Flow FiO2 Time Delivery Rate 02/07/19 62 12:01 02/07/19 98/49 (65) 11:59 02/07/19 98.4 17 100 11:31 02/07/19 Nasal 11:26 Cannula Intake and Output 02/06/19 02/06/19 02/07/19 1515:00 23:00 07:00 IntakeIntake Total 613.140 ml 633.76 ml 360 ml OutputOutput Total 200 ml 205 ml 125 ml BalanceBalance 413.140 ml 428.76 ml 235 ml Results Results 24hrs Laboratory Tests Test 02/07/19 04:30 White Blood Count 5.8 Red Blood Count 2.53 L Hemoglobin 7.8 L Hematocrit 23.6 L Mean Corpuscular Volume 93.3 Mean Corpuscular Hemoglobin 30.8 Mean Corpuscular Hemoglobin Concent 33.1 Red Cell Distribution Width 18.7 H Platelet Count 51 #L Mean Platelet Volume 10.4 Immature Granulocytes % 0.500 H Neutrophils % 71.8 Lymphocytes % 12.2 L Monocytes % 10.3 Eosinophils % 5.0 Basophils % 0.2 Nucleated Red Blood Cells % 0.0 Immature Granulocytes # 0.030 Neutrophils # 4.2 Lymphocytes # 0.7 L Monocytes # 0.6 Eosinophils # 0.3 Basophils # 0.0 Nucleated Red Blood Cells # 0.0 Sodium Level 139 Potassium Level 3.7 Chloride Level 111 H Carbon Dioxide Level 16 L Anion Gap 12 Blood Urea Nitrogen 49 H Creatinine 2.24 H Est Glomerular Filtrat Rate mL/min Glucose Level 90 Calcium Level 8.6 Phosphorus Level 3.1 Magnesium Level 1.8 Medications Medication Current Medications Rifaximin (Xifaxan) 550 mg BID PO Last administered on 02/07/19 09:18; Admin Dose 550 MG; Start 01/30/19 at 21:00 Sevelamer Carbonate (Renvela) 1,600 mg WITH MEALS PO Last administered on 02/07/19 12:26; Admin Dose 1,600 MG; Start 01/31/19 at 11:30 Citric Acid/ Sodium Citrate (Bicitra) 30 ml Q8 PO Last administered on 02/07/19 14:28; Admin Dose 30 ML; Start 02/02/19 at 08:30 Sodium Chloride 1,000 ml @ 50 mls/hr Q20H IV Last administered on 02/06/19 10:12; Admin Dose 50 MLS/HR; Start 02/02/19 at 08:00 Lactulose (Enulose) 20 gm BID PO Last administered on 02/07/19 09:17; Admin Dose 20 GM; Start 02/02/19 at 21:00 Morphine Sulfate (morphine) 1 mg Q4H PRN IV SEVERE PAIN LEVEL 7-10 Last administered on 02/04/19 06:03; Admin Dose 1 MG; Start 02/04/19 at 05:30 Phenol (Cepastat Lozenge) 1 lozenge Q1H PRN MT PAIN AND/OR INFLAMMATION Last administered on 02/05/19 17:34; Admin Dose 1 LOZENGE; Start 02/04/19 at 19:00 Midodrine (Proamatine) 10 mg Q8 PO Last administered on 02/07/19 14:29; Admin Dose 10 MG; Start 02/05/19 at 22:00 Lidocaine (Xylocaine (Viscous)) 15 ml Q8 PO Last administered on 02/07/19 05:06; Admin Dose 15 ML; Start 02/06/19 at 14:00 Ascorbic Acid (Vitamin C) 250 mg DAILY PO Last administered on 02/07/19 12:25; Admin Dose 250 MG; Start 02/07/19 at 09:00 Multivitamins Therapeutic (Theragran) 1 tab DAILY PO Last administered on 01/17 09:18; Admin Dose 1 TAB; Start 02/07/19 at 09:00 CHADD PEREZ NP Feb 07, 2019 15:06
--- NOTE | 2019-02-07 16:36 | PN ---
Date/Time of Note Date/Time of Note DATE: 02/07/19 TIME: 16:35 Assessment/Plan VTE Prophylaxis Risk score (from Ns)>0 risk: 8 SCD applied (from Ns): Yes Pharmacological prophylaxis: heparin Lines/Catheters IV Catheter Type (from Nrs): Central Line Central line still needed: Yes Urinary Cath still in place: Yes Reason Cath still needed: urinary retention Assessment/Plan Hospital Course 78 yo female with h/o cirrhosis who presents with obtundation and severe REVA REVA: - Unclear etiology, likely prerenal at least in part. It is improving nicely with current therapies but remains impaired. - Continue midodrine and increase to 10 TID, levophed to MAP 65, albumin 25% q8h, isotonic fluids Hepatic encephelopathy - Resolved Cirrohsis; - Lactulose/rifaxamin - Hold diuretics and propranolol Anemia - From cirrhosis, no clinical report of bleeding Metabolic acidosis: - Likely from renal failure and respiratory alkalosis PT/OT Discharge plan: When renal function stable Result Diagram: 02/07/19 0430 02/07/19 0430 Results 24hrs Laboratory Tests Test 02/07/19 04:30 White Blood Count 5.8 Red Blood Count 2.53 L Hemoglobin 7.8 L Hematocrit 23.6 L Mean Corpuscular Volume 93.3 Mean Corpuscular Hemoglobin 30.8 Mean Corpuscular Hemoglobin Concent 33.1 Red Cell Distribution Width 18.7 H Platelet Count 51 #L Mean Platelet Volume 10.4 Immature Granulocytes % 0.500 H Neutrophils % 71.8 Lymphocytes % 12.2 L Monocytes % 10.3 Eosinophils % 5.0 Basophils % 0.2 Nucleated Red Blood Cells % 0.0 Immature Granulocytes # 0.030 Neutrophils # 4.2 Lymphocytes # 0.7 L Monocytes # 0.6 Eosinophils # 0.3 Basophils # 0.0 Nucleated Red Blood Cells # 0.0 Sodium Level 139 Potassium Level 3.7 Chloride Level 111 H Carbon Dioxide Level 16 L Anion Gap 12 Blood Urea Nitrogen 49 H Creatinine 2.24 H Est Glomerular Filtrat Rate mL/min Glucose Level 90 Calcium Level 8.6 Phosphorus Level 3.1 Magnesium Level 1.8 Subjective 24 Hr Interval Summary Free Text/Dictation Renal function continues to slowly improve No complaints Exam/Review of Systems Exam Vitals Vital Signs Date Temp Pulse Resp B/P (MAP) Pulse Ox O2 O2 Flow FiO2 Time Delivery Rate 02/07/19 70 16:01 02/07/19 98.3 18 105/50 100 Nasal 2.0 16:00 (68) Cannula Intake and Output 02/06/19 02/06/19 02/07/19 1515:00 23:00 07:00 IntakeIntake Total 613.140 ml 633.76 ml 360 ml OutputOutput Total 200 ml 205 ml 125 ml BalanceBalance 413.140 ml 428.76 ml 235 ml Constitutional: alert, oriented, well developed Psych: no complaints, nl mood/affect Head: normocephalic, atraumatic Eyes: nl conjunctiva, EOMI, nl lids, nl sclera, PERRL ENMT: nl external ears & nose, nl lips & teeth, nl nasal mucosa & septum Neck: supple, non-tender Respiratory: clear to auscultation, normal air movement Cardiovascular: regular rate and rhythm, nl pulses Gastrointestinal: soft, nl liver, spleen, non-tender Musculoskeletal: nl extremities to inspection, nl gait and stance Extremities: normal pulses Neurological: JAVASCRIPT SOFTWARE ENGINEER II-XII intact, nl mental status, nl speech, nl strength Skin: nl turgor; No rash or lesions Lymph: nl lymph nodes Results Results 24hrs Laboratory Tests Test 02/07/19 04:30 White Blood Count 5.8 Red Blood Count 2.53 L Hemoglobin 7.8 L Hematocrit 23.6 L Mean Corpuscular Volume 93.3 Mean Corpuscular Hemoglobin 30.8 Mean Corpuscular Hemoglobin Concent 33.1 Red Cell Distribution Width 18.7 H Platelet Count 51 #L Mean Platelet Volume 10.4 Immature Granulocytes % 0.500 H Neutrophils % 71.8 Lymphocytes % 12.2 L Monocytes % 10.3 Eosinophils % 5.0 Basophils % 0.2 Nucleated Red Blood Cells % 0.0 Immature Granulocytes # 0.030 Neutrophils # 4.2 Lymphocytes # 0.7 L Monocytes # 0.6 Eosinophils # 0.3 Basophils # 0.0 Nucleated Red Blood Cells # 0.0 Sodium Level 139 Potassium Level 3.7 Chloride Level 111 H Carbon Dioxide Level 16 L Anion Gap 12 Blood Urea Nitrogen 49 H Creatinine 2.24 H Est Glomerular Filtrat Rate mL/min Glucose Level 90 Calcium Level 8.6 Phosphorus Level 3.1 Magnesium Level 1.8 Medications Medication Current Medications Rifaximin (Xifaxan) 550 mg BID PO Last administered on 02/07/19 09:18; Admin Dose 550 MG; Start 01/30/19 at 21:00 Sevelamer Carbonate (Renvela) 1,600 mg WITH MEALS PO Last administered on 02/07/19 12:26; Admin Dose 1,600 MG; Start 01/31/19 at 11:30 Citric Acid/ Sodium Citrate (Bicitra) 30 ml Q8 PO Last administered on 02/07/19 14:28; Admin Dose 30 ML; Start 02/02/19 at 08:30 Sodium Chloride 1,000 ml @ 50 mls/hr Q20H IV Last administered on 02/06/19 10:12; Admin Dose 50 MLS/HR; Start 02/02/19 at 08:00 Lactulose (Enulose) 20 gm BID PO Last administered on 02/07/19 09:17; Admin Dose 20 GM; Start 02/02/19 at 21:00 Morphine Sulfate (morphine) 1 mg Q4H PRN IV SEVERE PAIN LEVEL 7-10 Last administered on 02/04/19 06:03; Admin Dose 1 MG; Start 02/04/19 at 05:30 Phenol (Cepastat Lozenge) 1 lozenge Q1H PRN MT PAIN AND/OR INFLAMMATION Last administered on 02/05/19 17:34; Admin Dose 1 LOZENGE; Start 02/04/19 at 19:00 Midodrine (Proamatine) 10 mg Q8 PO Last administered on 02/07/19 14:29; Admin Dose 10 MG; Start 02/05/19 at 22:00 Lidocaine (Xylocaine (Viscous)) 15 ml Q8 PO Last administered on 02/07/19 15:25; Admin Dose 15 ML; Start 02/06/19 at 14:00 Ascorbic Acid (Vitamin C) 250 mg DAILY PO Last administered on 02/07/19 12:25; Admin Dose 250 MG; Start 02/07/19 at 09:00 Multivitamins Therapeutic (Theragran) 1 tab DAILY PO Last administered on 02/07/19 09:18; Admin Dose 1 TAB; Start 02/07/19 at 09:00 ALICIA SHARP MD Feb 07, 2019 16:36
[2019-02-08 02:56] VITALS: BP 117/56; PULSE 67; RESP 20
[2019-02-08] MEDS: LIDOCAINE 2% VISC 15 ML CUP PO SCH ×3 (05:29→22:35)
[2019-02-08] MEDS: CITRIC ACID/NA CITRATE 30 ML CUP PO SCH ×3 (05:29→22:35)
[2019-02-08] MEDS: SOD CHLORIDE 0.45% 1,000 ML IV SCH (05:29)
[2019-02-08] MEDS: MIDODRINE 5 MG TAB PO SCH ×3 (05:37→22:37)
[2019-02-08 08:39] VITALS: BP 109/53; PULSE 62; RESP 16
[2019-02-08] MEDS: LACTULOSE 30ML CUP PO SCH ×3 (09:36→21:00)
[2019-02-08] MEDS: SEVELAMER CARBONATE 800 MG TABLET PO SCH ×3 (09:36→17:26)
[2019-02-08] MEDS: MULTIVITAMINS THERAPEUTIC TAB PO SCH (09:36)
[2019-02-08] MEDS: RIFAXIMIN 550 MG TAB PO SCH ×2 (09:36→22:35)
[2019-02-08] MEDS: BALSAM PERU/CASTOR OIL 60 GM TUBE TOP SCH ×2 (09:37→22:42)
--- NOTE | 2019-02-08 10:13 | PN ---
DATE: 02/08/2019 SUBJECTIVE: The patient is stable. No events overnight. OBJECTIVE: VITAL SIGNS: Blood pressure is 109/53, pulse 62, respirations 16, temperature 98.0. HEENT: Head is normocephalic. NECK: Supple. HEART: Regular rate. LUNGS: Show diminished breath sounds at the base. ABDOMEN: Soft, nontender to palpation without rebound or guarding. EXTREMITIES: Negative for clubbing, cyanosis, no edema. DERMATOLOGIC: No rashes. MUSCULOSKELETAL: No joint effusions. NEUROLOGIC: No change in exam. MEDICATIONS: The patient's medications have been reviewed. LABORATORY DATA: Shows white count 6.6, hemoglobin 8.6, platelet count is 64. Sodium 139, potassium 4.0, chloride 113, BUN 49, creatinine 2.07. ASSESSMENT AND PLAN: 1. Nonoliguric acute kidney injury with previous baseline creatinine of 0.7 mg/dL. Etiology of REVA is secondary to hemodynamics, possible acute tubular necrosis. Patient's renal function has been imp roving. Continue current treatment plan and supportive care, renally dose all meds. Will discontinu e IV fluids. 2. Hyperkalemia, improved. 3. Hypomagnesemia. Continue to monitor hemoglobin and hematocrit levels. 4. Metabolic acidosis secondary to acute kidney injury, possible chronic kidney disease. The patien t's bicarbonate levels have been improving. Continue Bicitra. 5. Sepsis, status post shock. Etiology secondary to urinary tract infection . Continue curren t antibiotic regimen. 6. Acute encephalopathy, etiology is toxic metabolic. 7. Decompensated cirrhosis. Continue medical management. 8. Anemia. Monitor hemoglobin and hematocrit levels. 9. Mineral bone disorder. Monitor calcium and phosphorus levels. 10. Urinary retention. The patient is status post catheter placement. Dictated By: ZOË FUCHS DO NR/NTS Conf#: [id number] DID#: [id number] CC: ALICIA SHARP MD;*EndCC*
[2019-02-08 14:28] VITALS: BP 100/60; PULSE 60
--- NOTE | 2019-02-08 14:40 | PN ---
Date/Time of Note Date/Time of Note DATE: 02/08/19 TIME: 14:36 Assessment/Plan VTE Prophylaxis Risk score (from Ns)>0 risk: 4 SCD applied (from Ns): Yes Pharmacological prophylaxis: heparin Lines/Catheters IV [facility] Peripheral IV Urinary Cath still in place: Yes Reason Cath still needed: urinary retention Assessment/Plan Hospital Course 78 yo female with h/o cirrhosis who presents with obtundation and severe REVA REVA: - Unclear etiology, likely prerenal at least in part. It is improving nicely with current therapies but remains impaired. - Continue midodrine and increase to 10 TID, levophed to MAP 65, albumin 25% q8h, isotonic fluids Hepatic encephelopathy - Resolved Cirrohsis; - Lactulose/rifaxamin - Hold diuretics and propranolol Anemia - From cirrhosis, no clinical report of bleeding Metabolic acidosis: - Likely from renal failure and respiratory alkalosis PT/OT Discharge plan: When renal function stable, likely to [facility] Result Diagram: 02/08/19 0711 02/08/19 0711 Results 24hrs Laboratory Tests Test 02/08/19 05:15 02/08/19 07:11 Urine Color YELLOW Urine Clarity CLOUDY A Urine pH 5.0 Urine Specific [place] 1.013 Urine Ketones NEGATIVE Urine Nitrite NEGATIVE Urine Bilirubin NEGATIVE Urine Urobilinogen NEGATIVE Urine Leukocyte Esterase 2+ H Urine Microscopic RBC 5 Urine Microscopic WBC 65 H Urine Squamous Epithelial Cells MODERATE Urine Renal Epithelial Cells FEW A Urine Bacteria FEW A Urine Hemoglobin 1+ H Urine Glucose NEGATIVE Urine Total Protein NEGATIVE White Blood Count 6.6 Red Blood Count 2.82 L Hemoglobin 8.6 L Hematocrit 26.6 L Mean Corpuscular Volume 94.3 Mean Corpuscular Hemoglobin 30.5 Mean Corpuscular Hemoglobin Concent 32.3 Red Cell Distribution Width 18.8 H Platelet Count 64 #L Mean Platelet Volume 10.7 H Immature Granulocytes % 0.600 H Neutrophils % 69.7 Lymphocytes % 11.5 L Monocytes % 12.7 H Eosinophils % 5.0 Basophils % 0.5 Nucleated Red Blood Cells % 0.0 Immature Granulocytes # 0.040 H Neutrophils # 4.6 Lymphocytes # 0.8 Monocytes # 0.8 Eosinophils # 0.3 Basophils # 0.0 Nucleated Red Blood Cells # 0.0 Sodium Level 139 Potassium Level 4.0 Chloride Level 113 H Carbon Dioxide Level 17 L Anion Gap 9 Blood Urea Nitrogen 49 H Creatinine 2.07 H Est Glomerular Filtrat Rate mL/min Glucose Level 99 Calcium Level 8.9 Phosphorus Level 3.0 Magnesium Level 1.9 Subjective 24 Hr Interval Summary Free Text/Dictation Doing well Alert, no distress Comfrortable Kidneys continue to improve Exam/Review of Systems Exam Vitals Vital Signs Date Temp Pulse Resp B/P (MAP) Pulse Ox O2 O2 Flow FiO2 Time Delivery Rate 02/08/19 98.1 60 100/60 98 Room Air 14:28 (73) 02/08/19 16 08:39 02/07/19 2.0 16:00 Intake and Output 02/07/19 02/07/19 02/08/19 1515:00 23:00 07:00 IntakeIntake Total 200 ml 50 ml OutputOutput Total 250 ml BalanceBalance -50 ml 50 ml Constitutional: alert, oriented, well developed Psych: no complaints, nl mood/affect Head: normocephalic, atraumatic Eyes: nl conjunctiva, EOMI, nl lids, nl sclera, PERRL ENMT: nl external ears & nose, nl lips & teeth, nl nasal mucosa & septum Neck: supple, non-tender Respiratory: clear to auscultation, normal air movement Cardiovascular: regular rate and rhythm, nl pulses Gastrointestinal: soft, nl liver, spleen, non-tender Musculoskeletal: nl extremities to inspection, nl gait and stance Extremities: normal pulses Neurological: VETERINARY RECEPTIONIST II-XII intact, nl mental status, nl speech, nl strength Skin: nl turgor; No rash or lesions Lymph: nl lymph nodes Results Results 24hrs Laboratory Tests Test 02/08/19 05:15 02/08/19 07:11 Urine Color YELLOW Urine Clarity CLOUDY A Urine pH 5.0 Urine Specific [place] 1.013 Urine Ketones NEGATIVE Urine Nitrite NEGATIVE Urine Bilirubin NEGATIVE Urine Urobilinogen NEGATIVE Urine Leukocyte Esterase 2+ H Urine Microscopic RBC 5 Urine Microscopic WBC 65 H Urine Squamous Epithelial Cells MODERATE Urine Renal Epithelial Cells FEW A Urine Bacteria FEW A Urine Hemoglobin 1+ H Urine Glucose NEGATIVE Urine Total Protein NEGATIVE White Blood Count 6.6 Red Blood Count 2.82 L Hemoglobin 8.6 L Hematocrit 26.6 L Mean Corpuscular Volume 94.3 Mean Corpuscular Hemoglobin 30.5 Mean Corpuscular Hemoglobin Concent 32.3 Red Cell Distribution Width 18.8 H Platelet Count 64 #L Mean Platelet Volume 10.7 H Immature Granulocytes % 0.600 H Neutrophils % 69.7 Lymphocytes % 11.5 L Monocytes % 12.7 H Eosinophils % 5.0 Basophils % 0.5 Nucleated Red Blood Cells % 0.0 Immature Granulocytes # 0.040 H Neutrophils # 4.6 Lymphocytes # 0.8 Monocytes # 0.8 Eosinophils # 0.3 Basophils # 0.0 Nucleated Red Blood Cells # 0.0 Sodium Level 139 Potassium Level 4.0 Chloride Level 113 H Carbon Dioxide Level 17 L Anion Gap 9 Blood Urea Nitrogen 49 H Creatinine 2.07 H Est Glomerular Filtrat Rate mL/min Glucose Level 99 Calcium Level 8.9 Phosphorus Level 3.0 Magnesium Level 1.9 Medications Medication Current Medications Rifaximin (Xifaxan) 550 mg BID PO Last administered on 02/08/19 09:36; Admin Dose 550 MG; Start 01/30/19 at 21:00 Sevelamer Carbonate (Renvela) 1,600 mg WITH MEALS PO Last administered on 02/08/19 12:18; Admin Dose 1,600 MG; Start 01/31/19 at 11:30 Citric Acid/ Sodium Citrate (Bicitra) 30 ml Q8 PO Last administered on 02/08/19 05:29; Admin Dose 30 ML; Start 02/02/19 at 08:30 Lactulose (Enulose) 20 gm BID PO Last administered on 02/08/19 09:39; Admin Dose 20 GM; Start 02/02/19 at 21:00 Morphine Sulfate (morphine) 1 mg Q4H PRN IV SEVERE PAIN LEVEL 7-10 Last a dministered on 02/04/19 06:03; Admin Dose 1 MG; Start 02/04/19 at 05:30 Phenol (Cepastat Lozenge) 1 lozenge Q1H PRN MT PAIN AND/OR INFLAMMATION Last administered on 02/05/19 17:34; Admin Dose 1 LOZENGE; Start 02/04/19 at 19:00 Midodrine (Proamatine) 10 mg Q8 PO Last administered on 02/08/19 05:37; Admin Dose 10 MG; Start 02/05/19 at 22:00 Lidocaine (Xylocaine (Viscous)) 15 ml Q8 PO Last administered on 02/08/19 05:29; Admin Dose 15 ML; Start 02/06/19 at 14:00 Ascorbic Acid (Vitamin C) 250 mg DAILY PO Last administered on 02/07/19at 12:25; Admin Dose 250 MG; Start 02/07/19 at 09:00 Multivitamins Therapeutic (Theragran) 1 tab DAILY PO Last administered on 02/08/19at 09:36; Admin Dose 1 TAB; Start 02/07/19 at 09:00 Tamsulosin HCl (Flomax) 0.4 mg DAILY@2100 PO ; Start 02/08/19 at 21:00 ALICIA SHARP MD Feb 08, 2019 14:40
[2019-02-08 20:00] VITALS: BP 115/57; PULSE 70; RESP 18
[2019-02-08] MEDS: TAMSULOSIN (SR) 0.4 MG CAP PO SCH (22:34)
[2019-02-09 02:00] VITALS: BP 103/50; PULSE 75; RESP 16
[2019-02-09] MEDS: MIDODRINE 5 MG TAB PO SCH ×4 (06:00→21:10)
[2019-02-09] MEDS: CITRIC ACID/NA CITRATE 30 ML CUP PO SCH ×3 (06:26→21:07)
[2019-02-09] MEDS: LIDOCAINE 2% VISC 15 ML CUP PO SCH ×3 (06:26→21:07)
[2019-02-09 08:01] VITALS: BP 86/47; PULSE 82; RESP 16
[2019-02-09] MEDS: BALSAM PERU/CASTOR OIL 60 GM TUBE TOP SCH ×2 (09:00→21:08)
--- NOTE | 2019-02-09 09:00 | PN ---
DATE: 02/09/2019 SUBJECTIVE: The patient is stable. No events overnight. OBJECTIVE: VITAL SIGNS: Blood pressure is 186/47, respirations 16, pulse 82, temperature 98.0. HEENT: Head is normocephalic. NECK: Supple. HEART: Regular rate. LUNGS: Show diminished breath sounds at the base. ABDOMEN: Soft, nontender to palpation without rebound or guarding. EXTREMITIES: Negative for clubbing, cyanosis, no edema. DERMATOLOGIC: No rashes. MUSCULOSKELETAL: No joint effusion. NEUROLOGIC: No change in exam. LABORATORY DATA: Reviewed. ASSESSMENT AND PLAN: 1. Nonoliguric acute kidney injury with baseline creatinine of 0.7 mg/dL. Etiology of acute kidney injury is secondary to hemodynamics, possible tubular injury. Renal function has slowly been improvi ng. Continue current treatment plans, supportive care, renally dose all medications. 2. Hypokalemia, improved. 3. Hypomagnesemia. Continue to monitor and replete as needed. 4. Metabolic acidosis secondary to acute kidney injury, chronic kidney disease. The patient remains on Bicitra. Continue to monitor. 5. Sepsis, status post shock. Etiology is secondary to urinary tract infection. Continue current a ntibiotic regimen. 6. Acute encephalopathy, etiology is toxic metabolic. 7. Decompensated cirrhosis. Continue medical management. 8. Anemia. Continue to monitor hemoglobin and hematocrit levels. 9. Mineral bone disorder. Monitor calcium and phosphorus levels. Dictated By: ZOË FUCHS DO NR/NTS Conf#: [id number] DID#: [id number] CC: ZOË FUCHS DO; ALICIA SHARP MD;*EndCC*
[2019-02-09 09:30] VITALS: BP 89/49; PULSE 80
[2019-02-09] MEDS: RIFAXIMIN 550 MG TAB PO SCH ×2 (09:31→21:07)
[2019-02-09] MEDS: ASCORBIC ACID 250 MG TAB PO SCH (09:31)
[2019-02-09] MEDS: SEVELAMER CARBONATE 800 MG TABLET PO SCH ×3 (09:31→17:35)
[2019-02-09] MEDS: LACTULOSE 30ML CUP PO SCH ×2 (09:31→21:07)
[2019-02-09] MEDS: MULTIVITAMINS THERAPEUTIC TAB PO SCH (09:31)
[2019-02-09 10:52] VITALS: BP 88/49; PULSE 82
--- NOTE | 2019-02-09 12:52 | PN ---
Date/Time of Note Date/Time of Note DATE: 02/09/19 TIME: 12:49 Assessment/Plan VTE Prophylaxis Risk score (from Ns)>0 risk: 7 SCD applied (from Ns): Yes Pharmacological prophylaxis: other (scds) Lines/Catheters IV Catheter Type (from Nrs): Saline Lock Urinary Cath still in place: Yes Reason Cath still needed: other (indicate) (monitor output) Assessment/Plan Hospital Course Assessment: Hepatic encephalopathy Liver cirrhosis with ascites/post paracentesis x2 Acute renal failure/rule out hepatorenal syndrome Anemia likely multifactorial Plan: 2% lidocaine viscous oral solution -swish and spit out -for mouth canker sores 2gm NA diet Continue lactulose and rifaximin- Titrate lactulose to 3 bowel movements a day Nephrology care Monitor H/H, transfuse as needed. S/p planning per hospitalist Pt will need to f/u with her GI after discharge- on going monitoring for liver cirrhosis Patient seen in collaboration with Dr. Avilez/Amari Subjective: No over night events. Denies abdominal pain, nausea/vomiting. Encourage PO intake No overt signs of GI bleeding. Continue observation. Exam PHYSICAL EXAMINATION: GENERAL: Alert & oriented x 3, in no acute distress NECK: Supple, no masses CHEST: Inspection within normal limits. CARDIOVASCULAR: Heart: Regular rate and rhythm RESPIRATORY: Lungs clear to auscultation and percussion, no wheezing, no rubs GASTROINTESTINAL AND LIVER: Abdomen: Soft, non tenderness, mildly distended, no hernias, no masses, no organomegaly, moderate ascites, no guarding, no rebound tenderness, normoactive bowel sounds. Rectal: Deferred. GENITOURINARY: Female genitalia within normal limits. EXTREMITIES: No cyanosis, clubbing. Result Diagram: 02/09/19 0535 02/09/19 0535 Results 24hrs Laboratory Tests Test 02/09/19 05:35 White Blood Count 3.8 #L Red Blood Count 2.48 L Hemoglobin 7.6 L Hematocrit 23.3 L Mean Corpuscular Volume 94.0 Mean Corpuscular Hemoglobin 30.6 Mean Corpuscular Hemoglobin Concent 32.6 Red Cell Distribution Width 18.7 H Platelet Count 51 #L Mean Platelet Volume 11.2 H Immature Granulocytes % 0.500 H Neutrophils % 67.6 Lymphocytes % 16.6 Monocytes % 11.3 H Eosinophils % 3.7 Basophils % 0.3 Nucleated Red Blood Cells % 0.0 Immature Granulocytes # 0.020 Neutrophils # 2.6 Lymphocytes # 0.6 L Monocytes # 0.4 Eosinophils # 0.1 Basophils # 0.0 Nucleated Red Blood Cells # 0.0 Sodium Level 140 Potassium Level 3.5 Chloride Level 112 H Carbon Dioxide Level 17 L Anion Gap 11 Blood Urea Nitrogen 47 H Creatinine 1.87 H Est Glomerular Filtrat Rate mL/min Glucose Level 94 Calcium Level 8.5 Phosphorus Level 2.9 Magnesium Level 1.9 Exam/Review of Systems Exam Vitals Vital Signs Date Temp Pulse Resp B/P (MAP) Pulse Ox O2 O2 Flow FiO2 Time Delivery Rate 02/09/19 97.9 82 88/49 (62) 10:52 02/09/19 16 99 Room Air 08:01 02/07/19 2.0 16:00 Intake and Output 02/08/19 02/08/19 02/09/19 1515:00 23:00 07:00 IntakeIntake Total 400 ml 240 ml 50 ml BalanceBalance 400 ml 240 ml 50 ml Results Results 24hrs Laboratory Tests Test 02/09/19 05:35 White Blood Count 3.8 #L Red Blood Count 2.48 L Hemoglobin 7.6 L Hematocrit 23.3 L Mean Corpuscular Volume 94.0 Mean Corpuscular Hemoglobin 30.6 Mean Corpuscular Hemoglobin Concent 32.6 Red Cell Distribution Width 18.7 H Platelet Count 51 #L Mean Platelet Volume 11.2 H Immature Granulocytes % 0.500 H Neutrophils % 67.6 Lymphocytes % 16.6 Monocytes % 11.3 H Eosinophils % 3.7 Basophils % 0.3 Nucleated Red Blood Cells % 0.0 Immature Granulocytes # 0.020 Neutrophils # 2.6 Lymphocytes # 0.6 L Monocytes # 0.4 Eosinophils # 0.1 Basophils # 0.0 Nucleated Red Blood Cells # 0.0 Sodium Level 140 Potassium Level 3.5 Chloride Level 112 H Carbon Dioxide Level 17 L Anion Gap 11 Blood Urea Nitrogen 47 H Creatinine 1.87 H Est Glomerular Filtrat Rate mL/min Glucose Level 94 Calcium Level 8.5 Phosphorus Level 2.9 Magnesium Level 1.9 Medications Medication Current Medications Rifaximin (Xifaxan) 550 mg BID PO Last administered on 02/09/19at 09:31; Admin Dose 550 MG; Start 01/30/19 at 21:00 Sevelamer Carbonate (Renvela) 1,600 mg WITH MEALS PO Last administered on 02/09/19 09:31; Admin Dose 1,600 MG; Start 01/31/19 at 11:30 Citric Acid/ Sodium Citrate (Bicitra) 30 ml Q8 PO Last administered on 9at 06:26; Admin Dose 30 ML; Start 02/02/19 at 08:30 Lactulose (Enulose) 20 gm BID PO Last administered on 02/09/19 09:31; Admin Dose 20 GM; Start 02/02/19 at 21:00 Morphine Sulfate (morphine) 1 mg Q4H PRN IV SEVERE PAIN LEVEL 7-10 Last administered on 02/04/19 06:03; Admin Dose 1 MG; Start 02/04/19 at 05:30 Phenol (Cepastat Lozenge) 1 lozenge Q1H PRN MT PAIN AND/OR INFLAMMATION Last administered on 02/05/19 17:34; Admin Dose 1 LOZENGE; Start 02/04/19 at 19:00 Midodrine (Proamatine) 10 mg Q8 PO Last administered on 02/09/19 08:05; Admin Dose 10 MG; Start 02/05/19 at 22:00 Lidocaine (Xylocaine (Viscous)) 15 ml Q8 PO Last administered on 02/09/19 06:26; Admin Dose 15 ML; Start 02/06/19 at 14:00 Ascorbic Acid (Vitamin C) 250 mg DAILY PO Last administered on 02/09/19 09:31; Admin Dose 250 MG; Start 02/07/19 at 09:00 Multivitamins Therapeutic (Theragran) 1 tab DAILY PO Last administered on 02/09/19 09:31; Admin Dose 1 TAB; Start 02/07/19 at 09:00 Tamsulosin HCl (Flomax) 0.4 mg DAILY@2100 PO Last administered on 02/08/19 22:34; Admin Dose 0.4 MG; Start 02/08/19 at 21:00 REANNA LEUNG Feb 09, 2019 12:52
[2019-02-09 13:30] VITALS: BP 91/49; PULSE 72; RESP 16
--- NOTE | 2019-02-09 15:23 | PN ---
Date/Time of Note Date/Time of Note DATE: 02/09/19 TIME: 15:21 Assessment/Plan VTE Prophylaxis [place] [facility] risk: 7 SCD applied ([place] [facility] Yes Pharmacological prophylaxis: NA/contraindicated Pharm contraindication: liver dx Lines/Catheters [facility] Saline Lock Assessment/Plan Hospital Course 78 yo female with h/o cirrhosis who presents with obtundation and severe REVA REVA: - Unclear etiology, likely prerenal at least in part. It is improving nicely with current therapies but remains impaired. - Continue midodrine and increase to 10 TID, levophed to MAP 65, albumin 25% q8h, isotonic fluids Hepatic encephalopathy - Resolved Cirrhosis; - Lactulose/rifaxamin - Hold diuretics and propranolol Anemia - From cirrhosis, no clinical report of bleeding Metabolic acidosis: - Likely from renal failure and respiratory alkalosis Debility secondary to comorbidities PT/OT Discharge plan: When renal function stable, likely to [facility] Result Diagram: 02/09/19 0535 02/09/19 0535 Results 24hrs Laboratory Tests Test 02/09/19 05:35 White Blood Count 3.8 #L Red Blood Count 2.48 L Hemoglobin 7.6 L Hematocrit 23.3 L Mean Corpuscular Volume 94.0 Mean Corpuscular Hemoglobin 30.6 Mean Corpuscular Hemoglobin Concent 32.6 Red Cell Distribution Width 18.7 H Platelet Count 51 #L Mean Platelet Volume 11.2 H Immature Granulocytes % 0.500 H Neutrophils % 67.6 Lymphocytes % 16.6 Monocytes % 11.3 H Eosinophils % 3.7 Basophils % 0.3 Nucleated Red Blood Cells % 0.0 Immature Granulocytes # 0.020 Neutrophils # 2.6 Lymphocytes # 0.6 L Monocytes # 0.4 Eosinophils # 0.1 Basophils # 0.0 Nucleated Red Blood Cells # 0.0 Sodium Level 140 Potassium Level 3.5 Chloride Level 112 H Carbon Dioxide Level 17 L Anion Gap 11 Blood Urea Nitrogen 47 H Creatinine 1.87 H Est Glomerular Filtrat Rate mL/min Glucose Level 94 Calcium Level 8.5 Phosphorus Level 2.9 Magnesium Level 1.9 Subjective 24 Hr Interval Summary Constitutional: no complaints Exam/Review of Systems Exam Vitals Vital Signs Date Temp Pulse Resp B/P (MAP) Pulse Ox O2 O2 Flow FiO2 Time Delivery Rate 02/09/19 97.9 82 88/49 (62) 10:52 02/09/19 16 99 Room Air 08:01 02/07/19 2.0 16:00 Intake and Output 02/08/19 02/08/19 02/09/19 1515:00 23:00 07:00 IntakeIntake Total 400 ml 240 ml 50 ml BalanceBalance 400 ml 240 ml 50 ml Constitutional: alert Respiratory: clear to auscultation Cardiovascular: regular rate and rhythm Gastrointestinal: soft; No distended Musculoskeletal: nl extremities to inspection Results Results 24hrs Laboratory Tests Test 02/09/19 05:35 White Blood Count 3.8 #L Red Blood Count 2.48 L Hemoglobin 7.6 L Hematocrit 23.3 L Mean Corpuscular Volume 94.0 Mean Corpuscular Hemoglobin 30.6 Mean Corpuscular Hemoglobin Concent 32.6 Red Cell Distribution Width 18.7 H Platelet Count 51 #L Mean Platelet Volume 11.2 H Immature Granulocytes % 0.500 H Neutrophils % 67.6 Lymphocytes % 16.6 Monocytes % 11.3 H Eosinophils % 3.7 Basophils % 0.3 Nucleated Red Blood Cells % 0.0 Immature Granulocytes # 0.020 Neutrophils # 2.6 Lymphocytes # 0.6 L Monocytes # 0.4 Eosinophils # 0.1 Basophils # 0.0 Nucleated Red Blood Cells # 0.0 Sodium Level 140 Potassium Level 3.5 Chloride Level 112 H Carbon Dioxide Level 17 L Anion Gap 11 Blood Urea Nitrogen 47 H Creatinine 1.87 H Est Glomerular Filtrat Rate mL/min Glucose Level 94 Calcium Level 8.5 Phosphorus Level 2.9 Magnesium Level 1.9 Medications Medication Current Medications Rifaximin (Xifaxan) 550 mg BID PO Last administered on 02/09/19at 09:31; Admin Dose 550 MG; Start 01/30/19 at 21:00 Sevelamer Carbonate (Renvela) 1,600 mg WITH MEALS PO Last administered on 02/09/19 13:34; Admin Dose 1,600 MG; Start 01/31/19 at 11:30 Citric Acid/ Sodium Citrate (Bicitra) 30 ml Q8 PO Last administered on 02/09/19 06:26; Admin Dose 30 ML; Start 02/02/19 at 08:30 Lactulose (Enulose) 20 gm BID PO Last administered on 02/09/19 09:31; Admin Dose 20 GM; Start 02/02/19 at 21:00 Morphine Sulfate (morphine) 1 mg Q4H PRN IV SEVERE PAIN LEVEL 7-10 Last administered on 02/04/19 06:03; Admin Dose 1 MG; Start 02/04/19 at 05:30 Phenol (Cepastat Lozenge) 1 lozenge Q1H PRN MT PAIN AND/OR INFLAMMATION Last administered on 02/05/19 17:34; Admin Dose 1 LOZENGE; Start 02/04/19 at 19:00 Midodrine (Proamatine) 10 mg Q8 PO Last administered on 02/09/19 13:33; Admin Dose 10 MG; Start 02/05/19 at 22:00 Lidocaine (Xylocaine (Viscous)) 15 ml Q8 PO Last administered on 02/09/19 06:26; Admin Dose 15 ML; Start 02/06/19 at 14:00 Ascorbic Acid (Vitamin C) 250 mg DAILY PO Last administered on 02/09/19 09:31; Admin Dose 250 MG; Start 02/07/19 at 09:00 Multivitamins Therapeutic (Theragran) 1 tab DAILY PO Last administered on 02/09/19 09:31; Admin Dose 1 TAB; Start 02/07/19 at 09:00 Tamsulosin HCl (Flomax) 0.4 mg DAILY@2100 PO Last administered on 02/08/19 22:34; Admin Dose 0.4 MG; Start 02/08/19 at 21:00 DEMARCO TREVINO Feb 09, 2019 15:23
[2019-02-09 20:00] VITALS: BP 99/55; PULSE 78; RESP 18
[2019-02-09] MEDS: TAMSULOSIN (SR) 0.4 MG CAP PO SCH (21:07)
[2019-02-10 02:00] VITALS: BP 100/56; PULSE 76; RESP 16
[2019-02-10] MEDS: LIDOCAINE 2% VISC 15 ML CUP PO SCH ×3 (05:53→21:21)
[2019-02-10] MEDS: CITRIC ACID/NA CITRATE 30 ML CUP PO SCH ×3 (05:53→21:21)
[2019-02-10] MEDS: MIDODRINE 5 MG TAB PO SCH ×3 (05:54→21:21)
[2019-02-10 06:04] VITALS: BP 93/40; PULSE 79
[2019-02-10 08:00] VITALS: BP 97/53; PULSE 73; RESP 16
--- NOTE | 2019-02-10 09:14 | PN ---
DATE: 02/10/2019 SUBJECTIVE: The patient is stable. No events overnight. OBJECTIVE: VITAL SIGNS: Blood pressure is 97/53, respirations 16, pulse 73, temperature 98.0. HEENT: Head is normocephalic. NECK: Supple. HEART: Regular rate. LUNGS: Show diminished breath sounds at the base. ABDOMEN: Soft, nontender to palpation without rebound or guarding. EXTREMITIES: Negative for clubbing, cyanosis, no edema. DERMATOLOGIC: No rashes. MUSCULOSKELETAL: No joint effusion. NEUROLOGIC: No change in exam. MEDICATIONS: Reviewed. LABORATORY DATA: From 02/10/2019 showed a white count 3.9, hemoglobin 7.8, platelet count is 53. So dium 141, potassium 3.8, hematocrit 45, creatinine 1.78. ASSESSMENT AND PLAN: 1. Nonoliguric acute kidney injury with previous baseline creatinine of 0.7 mg/dL. Etiology of acut e kidney injury is secondary to hemodynamics, septic acute kidney injury, possible tubular injury. T he patient's renal function has slowly been improving with supportive care. At this point, continue current treatment plan, renally dose all medicines and avoid nephrotoxins. 2. Hypokalemia, improved. 3. Hypomagnesemia. Continue to monitor and replete as tolerated. 4. Metabolic acidosis secondary to acute kidney injury, chronic kidney disease. The patient remains on Bicitra. Continue to monitor. 5. Sepsis, status post shock secondary to urinary tract infection. Continue current antibiotic timo men. 6. Acute encephalopathy, etiology is toxic metabolic. 7. Decompensated cirrhosis. Continue medical management. Follow up with GI. 8. Anemia. Continue to monitor hemoglobin and hematocrit levels. 9. Mineral bone disorder, monitor calcium and phosphorus levels. 10. Hypertension in part due to underlying cirrhosis pathophysiology. The patient remains on midodr ine. Continue to monitor. Dictated By: ZOË FUCHS DO NR/NTS Conf#: [id number] DID#: [id number] CC: DEMARCO TREVINO MD; ALICIA SHARP MD; ZOË FUCHS DO;*EndCC*
[2019-02-10] MEDS: LACTULOSE 30ML CUP PO SCH ×2 (10:52→21:20)
[2019-02-10] MEDS: MULTIVITAMINS THERAPEUTIC TAB PO SCH (10:52)
[2019-02-10] MEDS: RIFAXIMIN 550 MG TAB PO SCH ×2 (10:52→21:20)
[2019-02-10] MEDS: ASCORBIC ACID 250 MG TAB PO SCH (10:52)
[2019-02-10] MEDS: BALSAM PERU/CASTOR OIL 60 GM TUBE TOP SCH ×2 (10:53→21:00)
--- NOTE | 2019-02-10 12:36 | PN ---
Date/Time of Note Date/Time of Note DATE: 02/10/19 TIME: 12:35 Assessment/Plan VTE Prophylaxis Risk score (from Ns)>0 risk: 7 SCD applied (from Ns): Yes Pharmacological prophylaxis: other (scds) Lines/Catheters IV [facility]from [facility] Saline Lock Assessment/Plan Hospital Course Assessment: Hepatic encephalopathy Liver cirrhosis with ascites/post paracentesis x2 Acute renal failure/rule out hepatorenal syndrome Anemia likely multifactorial Plan: Continue lactulose and rifaximin- Titrate lactulose to 3 bowel movements a day Nephrology care D/c planning per hospitalist Pt will need to f/u with her GI after discharge- on going monitoring for liver cirrhosis Patient seen in collaboration with Dr. Avilez/Amari Subjective: Pt notes less pain , encourage PO intake No c/o n/v or abdominal pain. Pt not able to michelet diuretics 2/2 to hypotension Continue observation. Exam PHYSICAL EXAMINATION: GENERAL: Alert & oriented x 3, in no acute distress NECK: Supple, no masses CHEST: Inspection within normal limits. CARDIOVASCULAR: Heart: Regular rate and rhythm RESPIRATORY: Lungs clear to auscultation GASTROINTESTINAL AND LIVER: Abdomen: Soft, non tenderness, distended, umbilical hernia, no organomegaly, ascites, no guarding, no rebound tenderness, normoactive bowel sounds. Rectal: Deferred. GENITOURINARY: Female genitalia within normal limits. EXTREMITIES: No cyanosis, clubbing. Result Diagram: 02/10/19 0530 02/10/19 0530 Results 24hrs Laboratory Tests Test 02/10/19 05:30 White Blood Count 3.9 L Red Blood Count 2.50 L Hemoglobin 7.8 L Hematocrit 23.5 L Mean Corpuscular Volume 94.0 Mean Corpuscular Hemoglobin 31.2 Mean Corpuscular Hemoglobin Concent 33.2 Red Cell Distribution Width 18.8 H Platelet Count 53 L Mean Platelet Volume 11.5 H Immature Granulocytes % 0.500 H Neutrophils % 68.3 Lymphocytes % 14.3 L Monocytes % 12.3 H Eosinophils % 3.8 Basophils % 0.8 Nucleated Red Blood Cells % 0.0 Immature Granulocytes # 0.020 Neutrophils # 2.7 Lymphocytes # 0.6 L Monocytes # 0.5 Eosinophils # 0.2 Basophils # 0.0 Nucleated Red Blood Cells # 0.0 Sodium Level 141 Potassium Level 3.8 Chloride Level 112 H Carbon Dioxide Level 18 L Anion Gap 11 Blood Urea Nitrogen 45 H Creatinine 1.78 H Est Glomerular Filtrat Rate mL/min Glucose Level 107 Calcium Level 8.7 Phosphorus Level 2.9 Magnesium Level 1.9 Exam/Review of Systems Exam Vitals Vital Signs Date Temp Pulse Resp B/P (MAP) Pulse Ox O2 O2 Flow FiO2 Time Delivery Rate 02/10/19 98.0 73 16 97/53 (68) 98 Room Air 08:00 02/07/19 2.0 16:00 Intake and Output 02/09/19 02/09/19 02/10/19 1515:00 23:00 07:00 IntakeIntake Total 840 ml 240 ml BalanceBalance 840 ml 240 ml Results Results 24hrs Laboratory Tests Test 02/10/19 05:30 White Blood Count 3.9 L Red Blood Count 2.50 L Hemoglobin 7.8 L Hematocrit 23.5 L Mean Corpuscular Volume 94.0 Mean Corpuscular Hemoglobin 31.2 Mean Corpuscular Hemoglobin Concent 33.2 Red Cell Distribution Width 18.8 H Platelet Count 53 L Mean Platelet Volume 11.5 H Immature Granulocytes % 0.500 H Neutrophils % 68.3 Lymphocytes % 14.3 L Monocytes % 12.3 H Eosinophils % 3.8 Basophils % 0.8 Nucleated Red Blood Cells % 0.0 Immature Granulocytes # 0.020 Neutrophils # 2.7 Lymphocytes # 0.6 L Monocytes # 0.5 Eosinophils # 0.2 Basophils # 0.0 Nucleated Red Blood Cells # 0.0 Sodium Level 141 Potassium Level 3.8 Chloride Level 112 H Carbon Dioxide Level 18 L Anion Gap 11 Blood Urea Nitrogen 45 H Creatinine 1.78 H Est Glomerular Filtrat Rate mL/min Glucose Level 107 Calcium Level 8.7 Phosphorus Level 2.9 Magnesium Level 1.9 Medications Medication Current Medications Rifaximin (Xifaxan) 550 mg BID PO Last administered on 02/10/19at 10:52; Admin Dose 550 MG; Start 01/30/19 at 21:00 Citric Acid/ Sodium Citrate (Bicitra) 30 ml Q8 PO Last administered on 02/10/19at 05:53; Admin Dose 30 ML; Start 02/02/19 at 08:30 Lactulose (Enulose) 20 gm BID PO Last administered on 02/10/19at 10:52; Admin Dose 20 GM; Start 02/02/19 at 21:00 Morphine Sulfate (morphine) 1 mg Q4H PRN IV SEVERE PAIN LEVEL 7-10 Last administered on 02/04/19 06:03; Admin Dose 1 MG; Start 02/04/19 at 05:30 Phenol (Cepastat Lozenge) 1 lozenge Q1H PRN MT PAIN AND/OR INFLAMMATION Last administered on 02/05/19 17:34; Admin Dose 1 LOZENGE; Start 02/04/19 at 19:00 Midodrine (Proamatine) 10 mg Q8 PO Last administered on 02/10/19 05:54; Admin Dose 10 MG; Start 02/05/19 at 22:00 Lidocaine (Xylocaine (Viscous)) 15 ml Q8 PO Last administered on 02/10/19 05:53; Admin Dose 15 ML; Start 02/06/19 at 14:00 Ascorbic Acid (Vitamin C) 250 mg DAILY PO Last administered on 02/10/19 10:52; Admin Dose 250 MG; Start 02/07/19 at 09:00 Multivitamins Therapeutic (Theragran) 1 tab DAILY PO Last administered on 02/10/19 10:52; Admin Dose 1 TAB; Start 02/07/19 at 09:00 Tamsulosin HCl (Flomax) 0.4 mg DAILY@2100 PO Last administered on 02/09/19 21:07; Admin Dose 0.4 MG; Start 02/08/19 at 21:00 REANNA LEUNG Feb 10, 2019 12:36
[2019-02-10 14:12] VITALS: BP 100/44; PULSE 77; RESP 16
[2019-02-10] MEDS ORDERED: MIDO5TAB PO (15:29)
[2019-02-10] MEDS ORDERED: RIFA550T4 PO (15:29)
--- NOTE | 2019-02-10 15:35 | DS ---
Date/Time of Note Date/Time of Note DATE: 02/10/19 TIME: 15:30 Discharge Summary Admission/Discharge Info Admit Date/Time Jan 30, 2019 at 14:33 Discharge Date/Time February 10, 2019 Discharge Diagnosis REVA-resolving -Likely prerenal, HRS now less likely -DC with midodrine -Nephrology consultation appreciated Hepatic encephalopathy- Resolved -DC with rifaximin, continue lactulose Cirrhosis; - Lactulose/rifaxamin -Resume diuretics and propanolol Anemia - From cirrhosis, no clinical report of bleeding Metabolic acidosis: - Likely from renal failure and respiratory alkalosis Debility secondary to comorbidities -PT/OT -DC to [facility] Hospital Course Patient is a 78 yo female with history of cryptogenic cirrhosis who presents with hepatic encephalopathy and severe REVA. Patient was seen by GI and nephrology, etiology of acute kidney injury was likely secondary to hemodynamics and HRS was felt to be less likely. Patient's encephalopathy did improve and patient was started on rifaximin. Patient was notably hypotensive and started on midodrine. Patient diuretics were held secondary to hypotension. Patient did have difficulty ambulating and was noted to have debility secondary to comorbidities. Patient was felt to require usp placement as patient lived alone and was nonambulatory with a poor functional status. cable installation manager did arrange for placement, on the day of discharge patient's vitals, labs and physical exam are stable. Home Meds Active Scripts Midodrine* (Midodrine*) 5 Mg Tablet, 10 MG PO Q8, #60 TAB Prov:DEMARCO TREVINO 02/10/19 Rifaximin* (Xifaxan*) 550 Mg Tablet, 550 MG PO BID, #60 TAB Prov:DEMARCO TREVNIO 02/10/19 Zinc Sulfate* (Zinc Sulfate*) 220 Mg Cap, 220 MG PO DAILY for 30 Days, #30 CAP 6 Refills Prov:MANAS JACKSON MD 10/02/18 Lactulose* (Lactulose*) 20 Gm/30 Ml Solution, 20 GM PO BID for 30 Days, #1 BOTTLE 6 Refills Prov:MANAS JACKSON MD 10/02/18 Reported Medications Omeprazole* (Omeprazole*) 20 Mg Capsule.dr, 20 MG PO AC BREAKFAST, #30 CAP 09/25/18 Furosemide* (Furosemide*) 40 Mg Tablet, 40 MG PO DAILY, TAB 09/25/18 Propranolol Hcl* (Propranolol Hcl*) 10 Mg Tablet, 10 MG PO BID, TAB 09/25/18 Spironolactone* (Aldactone*) 50 Mg Tablet, 100 MG PO DAILY, #30 TAB 09/25/18 Follow-up Plan [facility]-up with physicians at [facility] facility Primary Care Provider Care Physician No Primary Time spent on discharge: > 30 minutes DEMARCO TREVINO Feb 10, 2019 15:35
[2019-02-10 20:00] VITALS: BP 122/60; PULSE 80; RESP 18
[2019-02-10] MEDS: TAMSULOSIN (SR) 0.4 MG CAP PO SCH (21:20)
== END 2019-02-10 21:33 | DRG 871 ==
LOC: E/R 11:48 → ICU 14:33 → TEL 02-07 05:30 → PP2 02-07 17:13
PROVIDERS: ADMIT Internal Medicine; ATTEND Internal Medicine
PROC: 0W9G3ZX Drainage of Peritoneal Cavity, Percutaneous Approach, Diagnostic (ICD-10-PCS; 2019-01-31)
PROC: 0W9G3ZX Drainage of Peritoneal Cavity, Percutaneous Approach, Diagnostic (ICD-10-PCS; principal; 2019-02-04)
DX: A41.9 Sepsis, unspecified organism (principal); K72.00 Acute and subacute hepatic failure without coma; K65.2 Spontaneous bacterial peritonitis; R65.21 Severe sepsis with septic shock; N17.0 Acute kidney failure with tubular necrosis; R18.8 Other ascites; E87.2 Acidosis; E87.1 Hypo-osmolality and hyponatremia; N39.0 Urinary tract infection, site not specified; K74.69 Other cirrhosis of liver; D63.8 Anemia in other chronic diseases classified elsewhere; E87.5 Hyperkalemia; N18.9 Chronic kidney disease, unspecified; I12.9 Hypertensive chronic kidney disease with stage 1 through stage 4 chronic kidney disease, or unspecified chronic kidney disease; E83.9 Disorder of mineral metabolism, unspecified; R53.81 Other malaise
CPT/HCPCS: 36415; 36430; 36600; 70450; 71045; 76705; 76775; 76937; 80048; 80053; 80202; 81001; 81003; 82042; 82043; 82140; 82803; 82962; 83036; 83605; 83615; 83735; 84100; 84155; 84300; 84443; 84484; 85025; 85610; 85730; 86850; 86900; 86901; 86920; 87040; 87070; 87081; 87086; 87102; 87116; 89051; 93005; 96374; 96375; 96376; 97110; 97163; J0692; J1644; J2270; J2543; J3370; J3475; J7030; J7040; P9016; P9047

== ENCOUNTER 2019-04-21 12:59 | Inpatient (IN) | payer OTHER ==
[~2019-04-21] VITALS: Ht 157.5 cm; Wt 67.2 kg
[~2019-04-21 12:59] MED LIST changes: +MIDO5TAB PO; +RIFA550T4 PO
[2019-04-21 13:12] VITALS: Ht 157.5 cm; Wt 67.2 kg
--- NOTE | 2019-04-21 13:46 | ERD ---
ER Documentation Chief Complaint Chief Complaint abdominal distention needs paracentesis HPI 78-year-old woman with a history of cirrhosis and recurrent ascites presents with abdominal pain, cramping, severe distention for the last few days. She is also developed bilateral peripheral edema and shortness of breath with dyspnea on exertion, and states she has to sleep in a sitting position. She denies fevers or chills, no vomiting or diarrhea, no blood per rectum or melena, no complaints of chest pain. ROS All systems reviewed and are negative except as per history of present illness. Medications Home Meds Reported Medications Omeprazole* (Omeprazole*) 40 Mg Capsule.dr, 40 MG PO DAILY, #30 CAP 04/21/19 Rifaximin* (Xifaxan*) 550 Mg Tablet, 550 MG PO BID, TAB 04/21/19 Lactulose* (Lactulose*) 10 Gm/15 Ml Solution, 30 ML PO BID, ML 04/21/19 Spironolactone* (Aldactone*) 50 Mg Tablet, 50 MG PO DAILY, #30 TAB 04/21/19 Furosemide* (Furosemide*) 40 Mg Tablet, 40 MG PO DAILY, TAB 04/21/19 Discontinued Reported Medications Omeprazole* (Omeprazole*) 20 Mg Capsule.dr, 20 MG PO AC BREAKFAST, #30 CAP 09/25/18 Furosemide* (Furosemide*) 40 Mg Tablet, 40 MG PO DAILY, TAB 09/25/18 Propranolol Hcl* (Propranolol Hcl*) 10 Mg Tablet, 10 MG PO BID, TAB 09/25/18 Spironolactone* (Aldactone*) 50 Mg Tablet, 100 MG PO DAILY, #30 TAB 09/25/18 Discontinued Scripts Midodrine* (Midodrine*) 5 Mg Tablet, 10 MG PO Q8, #60 TAB Prov:DEMARCO TREVINO 02/10/19 Rifaximin* (Xifaxan*) 550 Mg Tablet, 550 MG PO BID, #60 TAB Prov:DEMARCO TREVINO 02/10/19 Zinc Sulfate* (Zinc Sulfate*) 220 Mg Cap, 220 MG PO DAILY for 30 Days, #30 CAP 6 Refills Prov:MANAS JACKSON MD 10/02/18 Lactulose* (Lactulose*) 20 Gm/30 Ml Solution, 20 GM PO BID for 30 Days, #1 B OTTLE 6 Refills Prov:MANAS JACKSON MD 10/02/18 Allergies Allergies: Coded Allergies: No Known Allergy (Unverified , 04/21/19) PMhx/Soc cryptogenic cirrhosis, ascites, history of hepatic encephalopathy and severe REVA, gastritis History of Surgery: No Anesthesia Reaction: No Hx Neurological Disorder: No Hx Respiratory Disorders: No Hx Cardiac Disorders: Yes (HTN) Hx Psychiatric Problems: No Hx Miscellaneous Medical Probl: Yes (h.of cirrhosis) Hx Alcohol Use: No Hx Substance Use: No Hx Tobacco Use: No FmHx Family History: No diabetes Physical Exam Vitals Vital Signs Date Temp Pulse Resp B/P (MAP) Pulse Ox O2 O2 Flow FiO2 Time Delivery Rate 04/21/19 75 18 87/47 (60) 100 Room Air 17:16 04/21/19 84 18 108/78 100 Room Air 15:35 (88) 04/21/19 98.4 86 18 102/51 98 13:12 (68) Physical Exam GENERAL: Well-developed, well-nourished, dyspneic, afebrile HEENT: Moist mucous membranes, pink conjunctiva, no cervical spine tenderness or step-off deformities, no goiter, no jaundice or icterus, extraocular movements i ntact without pain. No submandibular induration, and no pharyngeal erythema NEURO: Alert and oriented 3, cranial nerves II through XII intact bilaterally, pupils equal round reactive to light, no focal deficits or facial asymmetry, sensation intact distally Strength 5/5 in upper and lower extremities bilaterally CARDIAC: Regular rate and rhythm, no murmurs rubs or gallops LUNGS: Crackles throughout the lung ug[place], no wheezing or stridor ABDOMEN: Protuberant, tense abdomen mildly erythematous and tender to superficial touch SKIN: Warm and dry to touch, mild erythema to the skin over the lower abdomen, blanching, no vesicles or ulcers EXTREMITIES: No clubbing cyanosis, 3+ pitting edema, calves are bilaterally symmetrical, no Homans sign, no popliteal cord sign. Distal pulses equal and bilateral PSYCH: Normal affect without agitation or irritability Result Diagram: 04/21/19 1430 04/21/19 1430 Results 24 hrs Laboratory Tests Test 04/21/19 14:30 White Blood Count 9.7 10^3/ul Red Blood Count 2.87 10^6/ul Hemoglobin 8.9 g/dl Hematocrit 26.5 % Mean Corpuscular Volume 92.3 fl Mean Corpuscular Hemoglobin 31.0 pg Mean Corpuscular Hemoglobin Concent 33.6 g/dl Red Cell Distribution Width 14.3 % Platelet Count 122 10^3/UL Mean Platelet Volume 10.5 fl Immature Granulocytes % 1.000 % Neutrophils % 73.4 % Lymphocytes % 12.6 % Monocytes % 10.4 % Eosinophils % 2.1 % Basophils % 0.5 % Nucleated Red Blood Cells % 0.0 /100WBC Immature Granulocytes # 0.100 10^3/ul Neutrophils # 7.1 10^3/ul Lymphocytes # 1.2 10^3/ul Monocytes # 1.0 10^3/ul Eosinophils # 0.2 10^3/ul Basophils # 0.1 10^3/ul Nucleated Red Blood Cells # 0.0 10^3/ul Prothrombin Time 17.7 Sec Prothrombin Time Ratio 1.4 INR International Normalized Ratio 1.45 Activated Partial Thromboplast Time 39.4 Sec Sodium Level 131 mmol/L Potassium Level 4.0 mmol/L Chloride Level 102 mmol/L Carbon Dioxide Level 21 mmol/L Anion Gap 8 Blood Urea Nitrogen 21 mg/dl Creatinine 1.31 mg/dl Est Glomerular Filtrat Rate mL/min mL/min Glucose Level 153 mg/dl Calcium Level 7.9 mg/dl Total Bilirubin 1.1 mg/dl Direct Bilirubin 0.00 mg/dl Indirect Bilirubin 1.1 mg/dl Aspartate Amino Transf (AST/SGOT) 47 IU/L Alanine Aminotransferase (ALT/SGPT) 32 IU/L Alkaline Phosphatase 383 IU/L Troponin I < 0.012 ng/ml Total Protein 6.9 g/dl Albumin 2.7 g/dl Globulin 4.20 g/dl Albumin/Globulin Ratio 0.64 Lipase 94 U/L Current Medications Medications Dose Sig/Bhavna Start Time Status Last (Trade) Ordered Route PRN Stop Time Admin Dose Reason Admin Sodium 500 ml @ Q1H STAT 04/21/19 DC 04/21/19 Chloride 500 mls/hr IV 14:07 04/21/19 14:50 15:06 Morphine 2 mg ONCE STAT 04/21/19 DC Sulfate IV 14:07 04/21/19 (morphine) 14:11 Ondansetron 4 mg ONCE STAT 04/21/19 DC 04/21/19 HCl (Zofran IV 14:07 04/21/19 14:49 Inj) 14:11 Ibuprofen 600 mg ONCE ONCE 04/21/19 DC 04/21/19 (Motrin) PO 14:30 04/21/19 14:50 14:31 Ceftriaxone 50 ml @ ONCE ONCE 04/21/19 DC 04/21/19 Sodium 100 mls/hr IVPB 14:30 04/21/19 14:50 14:59 Procedures/MDM IV line was established patient was placed on youth nutritional monitor rhythm strip revealed a sinus rhythm at about 80 bpm with upright P and T waves. Patient was afebrile EKG performed, read by me revealed a normal sinus rhythm at 79 bpm, normal axis, narrow QRS complex, no concerning ST elevations or depressions noted 1 view chest x-ray performed, read by me there is bilateral pulmonary vascular congestion and elevated diaphragms, no acute infiltrates, no pneumothorax. I administered ibuprofen 600 mg p.o., 500 cc normal saline IV, morphine 2 mg IV, Zofran 4 mg IV, ceftriaxone 1 g IV for possible SBP I ordered paracentesis to be performed under ultrasound guidance by radiology department, 5 L was removed and fluid was sent for testing. CBC reveals mild anemia, electrolytes are unremarkable, liver function tests normal, troponin negative. Urine analysis is also been ordered results are pending I will follow-up. Patient will be admitted to telemetry for continued medical management and IV antibiotics Departure Diagnosis: Primary Impression: Cirrhosis of liver with ascites Hepatic cirrhosis type: unspecified hepatic cirrhosis Qualified Codes: K74.60 - Unspecified cirrhosis of liver; R18.8 - Other ascites Additional Impressions: Pulmonary edema Chronicity: acute Qualified Codes: J81.0 - Acute pulmonary edema SBP (spontaneous bacterial peritonitis) Condition: NIKITA Johnson MD Apr 21, 2019 13:46
[2019-04-21] MEDS ORDERED: SOD CHLORIDE 0.9% 500 ML IV STA (14:07)
[2019-04-21] MEDS ORDERED: morphine 2 MG INJ IV STA (14:07)
[2019-04-21] MEDS ORDERED: ONDANSETRON 4 MG INJ IV STA (14:07)
[2019-04-21] MEDS ORDERED: CEFTRIAXONE 1 GM/50 ML (PMX) 50 ML IVPB ONE (14:30)
[2019-04-21] MEDS ORDERED: IBUPROFEN 600 MG TAB PO ONE (14:30)
[2019-04-21] MEDS ORDERED: FURO40TA4 PO (14:54)
[2019-04-21] MEDS ORDERED: SPIR50TA PO (14:55)
[2019-04-21] MEDS ORDERED: LACT10SO5 PO (14:57)
[2019-04-21] MEDS ORDERED: RIFA550T4 PO (14:57)
[2019-04-21] MEDS ORDERED: OMEP40CA6 PO (14:59)
[2019-04-21] MEDS ORDERED: LIDOCAINE 1% (MPF) 5 ML VIAL ONE (18:11)
--- NOTE | 2019-04-21 18:28 | HP ---
Date/Time of Note Date/Time of Note DATE: 04/21/19 TIME: 18:22 Assessment/Plan VTE Prophylaxis SCD applied (from Nsg): Yes Pharmacological prophylaxis: NA/contraindicated Pharm contraindication: liver dx Lines/Catheters IV Catheter Type (from Nrs): Saline Lock Assessment/Plan Hospital Course 1. Anasarca secondary to cirrhosis Status post paracentesis with 5 L removed Follow-up on fluid analysis Empiric Rocephin for SBP Continue Aldactone, Lasix IV 2. History of cryptogenic cirrhosis Continue lactulose and rifaximin 3. Acute kidney injury-likely prerenal Monitor 4. Diabetes Sliding scale 5. Anemia secondary to chronic disease and liver disease Monitor Prophylaxis: SCDs Result Diagram: 04/21/19 1430 04/21/19 1430 Results 24hrs Laboratory Tests Test 04/21/19 14:30 04/21/19 17:00 White Blood Count 9.7 # Red Blood Count 2.87 L Hemoglobin 8.9 L Hematocrit 26.5 L Mean Corpuscular Volume 92.3 Mean Corpuscular Hemoglobin 31.0 Mean Corpuscular Hemoglobin Concent 33.6 Red Cell Distribution Width 14.3 # Platelet Count 122 #L Mean Platelet Volume 10.5 H Immature Granulocytes % 1.000 H Neutrophils % 73.4 Lymphocytes % 12.6 L Monocytes % 10.4 Eosinophils % 2.1 Basophils % 0.5 Nucleated Red Blood Cells % 0.0 Immature Granulocytes # 0.100 H Neutrophils # 7.1 Lymphocytes # 1.2 Monocytes # 1.0 H Eosinophils # 0.2 Basophils # 0.1 Nucleated Red Blood Cells # 0.0 Prothrombin Time 17.7 H Prothrombin Time Ratio 1.4 INR International Normalized Ratio 1.45 Activated Partial Thromboplast Time 39.4 H Sodium Level 131 L Potassium Level 4.0 Chloride Level 102 Carbon Dioxide Level 21 Anion Gap 8 Blood Urea Nitrogen 21 H Creatinine 1.31 H Est Glomerular Filtrat Rate mL/min Glucose Level 153 Calcium Level 7.9 L Total Bilirubin 1.1 Direct Bilirubin 0.00 Indirect Bilirubin 1.1 Aspartate Amino Transf (AST/SGOT) 47 H Alanine Aminotransferase (ALT/SGPT) 32 Alkaline Phosphatase 383 H Troponin I < 0.012 Total Protein 6.9 Albumin 2.7 L Globulin 4.20 H Albumin/Globulin Ratio 0.64 Lipase 94 Urine Color YELLOW Urine Clarity CLEAR Urine pH 5.0 Urine Specific [place] 1.006 Urine Ketones NEGATIVE Urine Nitrite NEGATIVE Urine Bilirubin NEGATIVE Urine Urobilinogen NEGATIVE Urine Leukocyte Esterase NEGATIVE Urine Microscopic RBC 0 Urine Microscopic WBC 2 Urine Hemoglobin 1+ H Urine Glucose NEGATIVE Urine Total Protein NEGATIVE HPI/ROS Admit Date/Time Admit Date/Time March 21, 2019 Hx of Present Illness Patient is a 78-year-old female with a history of cryptogenic cirrhosis with recurrent encephalopathy and ascites, acute kidney injury, diabetes and debility. Patient presents with anasarca with significant abdominal distention, patient is status post paracentesis with 5 L removed in the ER. Patient was also reporting fevers for the past several days but is afebrile in the ER. P dragan has no other complaints. ROS Constitutional: febrile Eyes: no complaints ENT: no complaints Respiratory: no complaints Cardiovascular: no complaints Gastrointestinal: other (Distended) Genitourinary: no complaints Musculoskeletal: no complaints Skin: no complaints Neurologic: no complaints Endocrine: no complaints Lymphatic: no complaints Psychological: no complaints, nl mood/affect Immunologic: no complaints PMH/Family/Social Past Medical History As per HPI Coded Allergies: No Known Allergy (Unverified , 04/21/19) Past Surgical History Past Surgical Hx: no surgical history Family History Significant Family History: no pertinent family hx Social History Alcohol Use: rarely Smoking Status: Never smoker Drug Use: none Exam/Review of Systems Vital Signs Vitals Vital Signs Date Temp Pulse Resp B/P (MAP) Pulse Ox O2 O2 Flow FiO2 Time Delivery Rate 04/21/19 75 18 87/47 (60) 100 Room Air 17:16 04/21/19 98.4 13:12 Exam Constitutional: alert, oriented Respiratory: clear to auscultation Cardiovascular: regular rate and rhythm Gastrointestinal: soft, distended Musculoskeletal: nl extremities to inspection DEMARCO TREVINO Apr 21, 2019 18:28
[2019-04-21] MEDS ORDERED: ONDANSETRON 4 MG INJ IV PRN (18:30)
[2019-04-21] MEDS ORDERED: ZOLPIDEM 5 MG TAB PO PRN (18:30)
[2019-04-21] MEDS ORDERED: morphine 2 MG INJ IV PRN (18:30)
[2019-04-21] MEDS ORDERED: NACL 0.9% 3 ML SYG IV SCH (18:30)
[2019-04-21] MEDS: LACTULOSE 30ML CUP PO SCH (21:28)
[2019-04-21] MEDS: RIFAXIMIN 550 MG TAB PO SCH (21:28)
[2019-04-22] VITALS (12 sets, daily range): BP systolic 95–109; BP diastolic 51–56; PULSE 82–93; RESP 18–19
[2019-04-22] MEDS ORDERED: DEXTROSE 50% 50 ML SYRINGE IV PRN ×2 (04:00)
[2019-04-22] MEDS ORDERED: GLUCOSE GEL 15 GRAM TUBE PO PRN ×2 (04:00)
[2019-04-22] MEDS ORDERED: GLUCOSE GEL 15 GRAM TUBE BUCCAL PRN (04:00)
[2019-04-22] MEDS ORDERED: GLUCAGON 1 MG INJ IM PRN (04:00)
[2019-04-22] MEDS: PANTOPRAZOLE (EC) 40 MG TAB PO SCH (05:40)
[2019-04-22] MEDS: SPIRONOLACTONE 50 MG TAB PO SCH ×2 (05:40→17:15)
[2019-04-22] MEDS: FUROSEMIDE 20 MG TAB PO SCH ×2 (05:41→17:15)
[2019-04-22] MEDS: INSULIN ASPART [NOVOLOG] 3 ML PEN SC SCH ×4 (07:49→20:58)
[2019-04-22] MEDS: RIFAXIMIN 550 MG TAB PO SCH ×2 (08:25→20:37)
[2019-04-22] MEDS: LACTULOSE 30ML CUP PO SCH ×2 (08:25→20:36)
[2019-04-22] MEDS ORDERED: CEFTRIAXONE 1 GM/50 ML (PMX) 50 ML IVPB SCH (15:00)
--- NOTE | 2019-04-22 16:12 | PN ---
Date/Time of Note Date/Time of Note DATE: 04/22/19 TIME: 16:11 Assessment/Plan VTE Prophylaxis Risk score (from [facility] [place]0 risk: 5 SCD applied (from [facility] [place]): Yes Pharmacological prophylaxis: NA/contraindicated Pharm contraindication: renal impairment Lines/Catheters IV [facility]from [facility] Saline Lock Assessment/Plan Hospital Course 1. Anasarca secondary to cirrhosis Status post paracentesis with 5 L removed Follow-up on fluid analysis Empiric Rocephin for SBP Continue Aldactone and Lasix 2. History of cryptogenic cirrhosis Continue lactulose and rifaximin 3. Acute kidney injury-likely prerenal Monitor 4. Diabetes Sliding scale 5. Anemia secondary to chronic disease and liver disease Monitor Prophylaxis: SCDs DC planning: Anticipate DC home tomorrow Result Diagram: 04/22/19 0650 04/22/19 0650 Results 24hrs Laboratory Tests Test 04/21/19 17:00 04/22/19 06:50 04/22/19 07:48 04/22/19 11:40 Urine Color YELLOW Urine Clarity CLEAR Urine pH 5.0 Urine Specific [place] 1.006 Urine Ketones NEGATIVE Urine Nitrite NEGATIVE Urine Bilirubin NEGATIVE Urine Urobilinogen NEGATIVE Urine Leukocyte Esterase NEGATIVE Urine Microscopic RBC 0 Urine Microscopic WBC 2 Urine Hemoglobin 1+ H Urine Glucose NEGATIVE Urine Total Protein NEGATIVE White Blood Count 6.3 # Red Blood Count 2.66 L Hemoglobin 8.3 L Hematocrit 24.6 L Mean Corpuscular Volume 92.5 Mean Corpuscular 31.2 Hemoglobin Mean Corpuscular 33.7 Hemoglobin Concent Red Cell Distribution 14.2 Width Platelet Count 120 L Mean Platelet Volume 11.0 H Immature Granulocytes % 0.500 H Neutrophils % 65.1 Lymphocytes % 17.7 Monocytes % 9.7 Eosinophils % 6.5 Basophils % 0.5 Nucleated Red Blood 0.0 Cells % Immature Granulocytes # 0.030 Neutrophils # 4.1 Lymphocytes # 1.1 Monocytes # 0.6 Eosinophils # 0.4 Basophils # 0.0 Nucleated Red Blood 0.0 Cells # Sodium Level 132 L Potassium Level 4.0 Chloride Level 104 Carbon Dioxide Level 21 Anion Gap 7 Blood Urea Nitrogen 20 Creatinine 1.25 H Est Glomerular Filtrat Rate mL/min Glucose Level 102 # Calcium Level 7.8 L Phosphorus Level 3.6 Magnesium Level 1.7 Bedside Glucose 118 137 Subjective 24 Hr Interval Summary Gastrointestinal: pain Exam/Review of Systems Exam Vitals Vital Signs Date Temp Pulse Resp B/P (MAP) Pulse Ox O2 O2 Flow FiO2 Time Delivery Rate 04/22/19 89 16:08 04/22/19 98.6 18 106/55 98 15:20 (72) 04/22/19 Room Air 01:53 Constitutional: alert, oriented Respiratory: clear to auscultation Gastrointestinal: soft; No distended Musculoskeletal: nl extremities to inspection Results Results 24hrs Laboratory Tests Test 04/21/19 17:00 04/22/19 06:50 04/22/19 07:48 04/22/19 11:40 Urine Color YELLOW Urine Clarity CLEAR Urine pH 5.0 Urine Specific [place] 1.006 Urine Ketones NEGATIVE Urine Nitrite NEGATIVE Urine Bilirubin NEGATIVE Urine Urobilinogen NEGATIVE Urine Leukocyte Esterase NEGATIVE Urine Microscopic RBC 0 Urine Microscopic WBC 2 Urine Hemoglobin 1+ H Urine Glucose NEGATIVE Urine Total Protein NEGATIVE White Blood Count 6.3 # Red Blood Count 2.66 L Hemoglobin 8.3 L Hematocrit 24.6 L Mean Corpuscular Volume 92.5 Mean Corpuscular 31.2 Hemoglobin Mean Corpuscular 33.7 Hemoglobin Concent Red Cell Distribution 14.2 Width Platelet Count 120 L Mean Platelet Volume 11.0 H Immature Granulocytes % 0.500 H Neutrophils % 65.1 Lymphocytes % 17.7 Monocytes % 9.7 Eosinophils % 6.5 Basophils % 0.5 Nucleated Red Blood 0.0 Cells % Immature Granulocytes # 0.030 Neutrophils # 4.1 Lymphocytes # 1.1 Monocytes # 0.6 Eosinophils # 0.4 Basophils # 0.0 Nucleated Red Blood 0.0 Cells # Sodium Level 132 L Potassium Level 4.0 Chloride Level 104 Carbon Dioxide Level 21 Anion Gap 7 Blood Urea Nitrogen 20 Creatinine 1.25 H Est Glomerular Filtrat Rate mL/min Glucose Level 102 # Calcium Level 7.8 L Phosphorus Level 3.6 Magnesium Level 1.7 Bedside Glucose 118 137 Medications Medication Current Medications IV Flush (NS 3 ml) 3 ml PER PROTOCOL IV ; Start 04/21/19 at 18:30 Ondansetron HCl (Zofran Inj) 4 mg Q6H PRN IV NAUSEA/VOMITING; Start 04/21/19 at 18:30 Morphine Sulfate (morphine) 2 mg Q4H PRN IV .SEVERE PAIN 7-10; Start 04/21/19 at 18:30 Zolpidem Tartrate (Ambien) 5 mg QHS PRN PO .INSOMNIA Last administered on 04/22/19at 03:08; Admin Dose 5 MG; Start 04/21/19 at 18:30 Ceftriaxone Sodium 50 ml @ 100 mls/hr Q24H IVPB Last administered on 04/22/19at 14:12; Admin Dose 100 MLS/HR; Start 04/22/19 at 15:00 Furosemide (Lasix) 20 mg BID DIURETICS PO Last administered on 04/22/19at 05:41; Admin Dose 20 MG; Start 04/22/19 at 06:00 Lactulose (Enulose) 20 gm BID PO Last administered on 04/22/19at 08:25; Admin Dose 20 GM; Start 04/21/19 at 21:00 Rifaximin (Xifaxan) 550 mg BID PO Last administered on 04/22/19at 08:25; Admin Dose 550 MG; Start 04/21/19 at 21:00 Spironolactone (Aldactone) 50 mg BID DIURETICS PO Last administered on 04/22/19at 05:40; Admin Dose 50 MG; Start 04/22/19 at 06:00 Pantoprazole (Protonix Tab) 40 mg DAILY@0600 PO Last administered on 04/22/19at 05:40; Admin Dose 40 MG; Start 04/22/19 at 06:00 Diagnostic Test (Pha) (Accu-Chek) 1 ea 02 XX ; Start 04/23/19 at 02:00 Insulin Aspart (Novolog Insulin Pen) NOVOLOG *MILD* ALGORITHM WITH MEALS BEDTIME SC ; Start 04/22/19 at 07:55 Miscellaneous Information 1 ea NOTE XX ; Start 04/22/19 at 04:00 Glucose (Glutose) 15 gm Q15M PRN PO DECREASED GLUCOSE; Start 04/22/19 at 04:00 Glucose (Glutose) 22.5 gm Q15M PRN PO DECREASED GLUCOSE; Start 04/22/19 at 04:00 Dextrose (D50w Syringe) 25 ml Q15M PRN IV DECREASED GLUCOSE; Start 04/22/19 at 04:00 Dextrose (D50w Syringe) 50 ml Q15M PRN IV DECREASED GLUCOSE; Start 04/22/19 at 04:00 Glucagon (Glucagen) 1 mg Q15M PRN IM DECREASED GLUCOSE; Start 04/22/19 at 04:00 Glucose (Glutose) 15 gm Q15M PRN BUCCAL DECREASED GLUCOSE; Start 04/22/19 at 04:00 DEMARCO TREVINO Apr 22, 2019 16:12
[2019-04-22] MEDS ORDERED: MAGNESIUM SULFATE 2 GM/50 ML 50 ML IVPB ONE (16:30)
[2019-04-23] VITALS (12 sets, daily range): BP systolic 90–106; BP diastolic 50–57; PULSE 75–94; RESP 19–20
[2019-04-23] MEDS ORDERED: ACCU-CHEK XX SCH (02:00)
[2019-04-23] MEDS: PANTOPRAZOLE (EC) 40 MG TAB PO SCH (05:45)
[2019-04-23] MEDS: SPIRONOLACTONE 50 MG TAB PO SCH (05:45)
[2019-04-23] MEDS: FUROSEMIDE 20 MG TAB PO SCH (05:49)
[2019-04-23] MEDS: INSULIN ASPART [NOVOLOG] 3 ML PEN SC SCH ×2 (07:55→12:29)
[2019-04-23] MEDS: LACTULOSE 30ML CUP PO SCH (08:57)
[2019-04-23] MEDS: RIFAXIMIN 550 MG TAB PO SCH (08:57)
[2019-04-23] MEDS ORDERED: LAS20 PO (10:32)
[2019-04-23] MEDS ORDERED: SPIR50TA4 PO (10:32)
--- NOTE | 2019-04-23 10:32 | PDOCDIS ---
Discharge Instructions CONDITION [id number] Patient Condition: [id number] Good HOME CARE INSTRUCTIONS: [id number] Diet Instructions: [id number] Reduced Sodium ACTIVITY: [id number] Activity Restrictions: [id number] No Restrictions FOLLOW UP/APPOINTMENTS Follow-up Plan FOLLOW UP WITH YOUR PCP IN 1-2 WEEKS DEMARCO TREVINO Apr 23, 2019 10:32
[2019-04-23] MEDS ORDERED: LIDOCAINE 1% (MDV) 20 ML INJ ONE (14:35)
--- NOTE | 2019-04-23 16:46 | DS ---
Date/Time of Note Date/Time of Note DATE: 04/23/19 TIME: 16:42 Discharge Summary Admission/Discharge Info Admit Date/Time Apr 22, 2019 at 10:58 Discharge Date/Time April 23, 2019 Discharge Diagnosis 1. Anasarca secondary to cirrhosis Status post paracentesis x2 during this hospitalization Status post empiric Rocephin for SBP but no evidence of sepsis to warrant further antibiotics Have changed diuretic regimen to Lasix 20 mg p.o. twice daily and Aldactone 50 mg p.o. twice daily 2. History of cryptogenic cirrhosis Continue lactulose and rifaximin 3. Acute kidney injury-likely prerenal Stable 4. Anemia secondary to chronic disease and liver disease Monitor Patient Condition: Good Hospital Course Patient is a 78-year-old female with a history of cryptogenic cirrhosis with recurrent encephalopathy and ascites, acute kidney injury and debility. Patient presents with anasarca with significant abdominal distention, patient is status post paracentesis with 5 L removed in the ER. Patient was also reporting fevers for the past several days but was afebrile during his hospitalization with no evidence of sepsis. Patient was given empiric Rocephin but had no evidence of sepsis and abdominal pain did resolve after first paracentesis. Patient did have recognition of fluid do not position and a second paracentesis was done. Diuretic regimen was changed upon DC as above. Patient stable for DC, on day of discharge patient vitals, labs and physical exam are stable. Home Meds Active Scripts Furosemide (Lasix) 20 Mg Tab, 20 MG PO BID DIURETICS, #60 TAB 1 Refill Prov:DEMARCO TREVINO 04/23/19 Spironolactone* (Aldactone*) 50 Mg Tablet, 50 MG PO BID DIURETICS, #60 TAB 1 Refill Prov:BELINDADEMARCO AMADO 04/23/19 Reported Medications Omeprazole* (Omeprazole*) 40 Mg Capsule.dr, 40 MG PO DAILY, #30 CAP 04/21/19 Rifaximin* (Xifaxan*) 550 Mg Tablet, 550 MG PO BID, TAB 04/21/19 Lactulose* (Lactulose*) 10 Gm/15 Ml Solution, 30 ML PO BID, ML 04/21/19 Discontinued Reported Medications Spironolactone* (Aldactone*) 50 Mg Tablet, 50 MG PO DAILY, #30 TAB 04/21/19 Furosemide* (Furosemide*) 40 Mg Tablet, 40 MG PO DAILY, TAB 04/21/19 Omeprazole* (Omeprazole*) 20 Mg Capsule.dr, 20 MG PO AC BREAKFAST, #30 CAP 09/25/18 Furosemide* (Furosemide*) 40 Mg Tablet, 40 MG PO DAILY, TAB 09/25/18 Propranolol Hcl* (Propranolol Hcl*) 10 Mg Tablet, 10 MG PO BID, TAB 09/25/18 Spironolactone* (Aldactone*) 50 Mg Tablet, 100 MG PO DAILY, #30 TAB 09/25/18 Discontinued Scripts Midodrine* (Midodrine*) 5 Mg Tablet, 10 MG PO Q8, #60 TAB Prov:DEMARCO TREVINO 02/10/19 Rifaximin* (Xifaxan*) 550 Mg Tablet, 550 MG PO BID, #60 TAB Prov:DEMARCO TREVINO 02/10/19 Zinc Sulfate* (Zinc Sulfate*) 220 Mg Cap, 220 MG PO DAILY for 30 Days, #30 CAP 6 Refills Prov:MANAS JACKSON MD 10/02/18 Lactulose* (Lactulose*) 20 Gm/30 Ml Solution, 20 GM PO BID for 30 Days, #1 BOTTLE 6 Refills Prov:MANAS JACKSON MD 10/02/18 Follow-up Plan FOLLOW UP WITH YOUR PCP IN 1-2 WEEKS Primary Care Provider Not On Staff Doctor Time spent on discharge: > 30 minutes DEMARCO TREVINO Apr 23, 2019 16:46
== END 2019-04-23 17:00 | disposition home or self-care (01) | DRG 433 ==
LOC: E/R 12:59 → TEL 17:31 → EDBEDREQ 17:32 → OBSVTOIN 04-22 10:58
PROVIDERS: ADMIT Internal Medicine; ATTEND Internal Medicine
PROC: 0W9G3ZZ Drainage of Peritoneal Cavity, Percutaneous Approach (ICD-10-PCS; principal; 2019-04-21)
PROC: 0W9G3ZZ Drainage of Peritoneal Cavity, Percutaneous Approach (ICD-10-PCS; 2019-04-23)
DX: K74.69 Other cirrhosis of liver (principal); R18.8 Other ascites; N17.9 Acute kidney failure, unspecified; G93.40 Encephalopathy, unspecified; E11.9 Type 2 diabetes mellitus without complications; D63.8 Anemia in other chronic diseases classified elsewhere; R53.81 Other malaise
CPT/HCPCS: 36415; 71045; 80048; 80053; 81001; 82962; 83690; 83735; 84100; 84484; 85025; 85610; 85730; 87086; 93005; 96374; 96375; G0378; J0696; J1815; J2270; J2405; J3475; J7040

== ENCOUNTER 2019-07-15 20:10 | Inpatient (IN) | payer OTHER ==
[~2019-07-15] VITALS: Ht 137.2 cm; Wt 63.0 kg
[~2019-07-15 20:10] MED LIST changes: +ASC500 PO; +FERR325T5 PO; +LACT10SO5 PO; +LAS20 PO; -MIDO5TAB PO; +MULTI PO; -OMEP20CA16 PO; +PANT40TA4 PO; +SPIR50TA4 PO
[2019-07-15] MEDS ORDERED: FUROSEMIDE 40 MG INJ IV STA (20:14)
[2019-07-15] MEDS ORDERED: NITROGLYCERIN 50 MG/D5W (PMX) 250 ML IV STA (20:14)
[2019-07-15] MEDS ORDERED: AZITHROMYCIN 500MG/NS (PMX) 250 ML IV STA (20:44)
[2019-07-15] MEDS ORDERED: CEFTRIAXONE 1 GM/50 ML (PMX) 50 ML IVPB STA (20:44)
[2019-07-15] MEDS ORDERED: ONDANSETRON 4 MG INJ IV PRN ×2 (21:30→23:00)
[2019-07-15] MEDS ORDERED: ACETAMINOPHEN 325 MG TAB PO PRN ×2 (21:30→23:00)
[2019-07-15] MEDS ORDERED: ALBUTEROL/IPRATROPIUM (NEB) 3 ML AMP HHN PRN (23:00)
[2019-07-15] MEDS ORDERED: NACL 0.9% 3 ML SYG IV SCH (23:00)
[2019-07-16] VITALS (7 sets, daily range): BP systolic 81–99; BP diastolic 42–53; PULSE 64–82; RESP 18–20; Ht 137.2 cm; Wt 63.0 kg
[2019-07-16] MEDS ORDERED: NA BICARBONATE 8.4% 50 ML SYG IV ONE (05:56)
[2019-07-16] MEDS: RIFAXIMIN 550 MG TAB PO SCH ×2 (08:57→21:34)
[2019-07-16] MEDS: FUROSEMIDE 40 MG TAB PO SCH (08:59)
[2019-07-16] MEDS: LACTULOSE 30ML CUP PO SCH ×2 (08:59→21:00)
[2019-07-16] MEDS: SPIRONOLACTONE 50 MG TAB PO SCH (09:00)
[2019-07-16] MEDS: PROPRANOLOL 10 MG TAB PO SCH ×2 (09:00→21:00)
[2019-07-16] MEDS ORDERED: CEFTRIAXONE 1 GM/50 ML (PMX) 50 ML IVPB SCH (09:00)
[2019-07-16] MEDS ORDERED: VANCOMYCIN IV PER PHARMACY XX SCH (13:30)
[2019-07-16] MEDS ORDERED: CEFEPIME 1GM/50 ML (PMX) 50 ML IVPB SCH (13:30)
[2019-07-16] MEDS ORDERED: LIDOCAINE 1% (MPF) 5 ML VIAL ONE (14:10)
[2019-07-16] MEDS: PANTOPRAZOLE (EC) 40 MG TAB PO SCH (17:06)
[2019-07-16] MEDS ORDERED: VANCOMYCIN 1.25 GM/NS 250 ML 250 ML IVPB SCH (18:00)
[2019-07-17] VITALS (10 sets, daily range): BP systolic 79–96; BP diastolic 41–54; PULSE 58–71; RESP 16–20
[2019-07-17] MEDS ORDERED: ALBUMIN HUMAN 25% 100 ML ONE (00:17)
[2019-07-17] MEDS ORDERED: ALBUMIN HUMAN 25% 100 ML IV ONE ×2 (00:30→07:00)
[2019-07-17] MEDS ORDERED: SOD CHLORIDE 0.9% 150 ML IV ONE (02:00)
[2019-07-17] MEDS ORDERED: SOD CHLORIDE 0.9% 250 ML IV ONE (04:00)
[2019-07-17] MEDS: PANTOPRAZOLE (EC) 40 MG TAB PO SCH ×2 (06:08→16:33)
[2019-07-17] MEDS ORDERED: POTASSIUM CHLORIDE (SR) 20 MEQ TAB PO ONE (06:36)
[2019-07-17] MEDS: SPIRONOLACTONE 50 MG TAB PO SCH (09:00)
[2019-07-17] MEDS: PROPRANOLOL 10 MG TAB PO SCH ×2 (09:00→21:00)
[2019-07-17] MEDS: FUROSEMIDE 40 MG TAB PO SCH (09:00)
[2019-07-17] MEDS: LACTULOSE 30ML CUP PO SCH ×2 (09:14→21:05)
[2019-07-17] MEDS: RIFAXIMIN 550 MG TAB PO SCH ×2 (09:14→21:05)
[2019-07-17] MEDS: MEROPENEM 500MG/50 ML (PMX) 50 ML IVPB SCH ×2 (11:19→21:10)
[2019-07-17] MEDS ORDERED: CEFEPIME 1GM/50 ML IVPB SCH (14:00)
[2019-07-18 03:53] VITALS: BP 88/50; PULSE 69; RESP 20
[2019-07-18 04:05] VITALS: BP 91/50; PULSE 70; RESP 20
[2019-07-18] MEDS: PANTOPRAZOLE (EC) 40 MG TAB PO SCH ×2 (06:21→17:47)
[2019-07-18 07:31] VITALS: BP 94/45; PULSE 69; RESP 18
[2019-07-18] MEDS: SPIRONOLACTONE 50 MG TAB PO SCH (09:00)
[2019-07-18] MEDS: PROPRANOLOL 10 MG TAB PO SCH ×2 (09:00→21:40)
[2019-07-18] MEDS: MEROPENEM 500MG/50 ML (PMX) 50 ML IVPB SCH ×2 (09:12→21:38)
[2019-07-18] MEDS: FUROSEMIDE 40 MG TAB PO SCH (09:12)
[2019-07-18] MEDS: LACTULOSE 30ML CUP PO SCH ×2 (09:12→21:38)
[2019-07-18] MEDS: RIFAXIMIN 550 MG TAB PO SCH ×2 (09:12→21:40)
[2019-07-18 11:04] VITALS: BP 94/50; PULSE 73; RESP 16
[2019-07-18 15:13] VITALS: BP 93/49; PULSE 70; RESP 18
[2019-07-18] MEDS ORDERED: VANCOMYCIN 1 GM 250 ML IVPB SCH (18:00)
[2019-07-18 20:04] VITALS: BP 110/52; PULSE 58; RESP 16
[2019-07-19] VITALS (7 sets, daily range): BP systolic 94–163; BP diastolic 45–86; PULSE 50–87; RESP 16–20
[2019-07-19] MEDS: PANTOPRAZOLE (EC) 40 MG TAB PO SCH ×2 (06:56→16:33)
[2019-07-19] MEDS: RIFAXIMIN 550 MG TAB PO SCH ×2 (08:17→21:07)
[2019-07-19] MEDS: FUROSEMIDE 40 MG TAB PO SCH (08:17)
[2019-07-19] MEDS: LACTULOSE 30ML CUP PO SCH ×2 (08:18→21:07)
[2019-07-19] MEDS: MEROPENEM 500MG/50 ML (PMX) 50 ML IVPB SCH ×2 (08:18→21:07)
[2019-07-19] MEDS: PROPRANOLOL 10 MG TAB PO SCH ×2 (09:00→21:09)
[2019-07-19] MEDS: SPIRONOLACTONE 50 MG TAB PO SCH (09:00)
[2019-07-20 00:27] VITALS: BP 110/56; PULSE 72; RESP 18
[2019-07-20 04:34] VITALS: BP 96/52; PULSE 78; RESP 18
[2019-07-20] MEDS: PANTOPRAZOLE (EC) 40 MG TAB PO SCH ×2 (06:48→17:39)
[2019-07-20] MEDS ORDERED: POTASSIUM CHLORIDE (SR) 20 MEQ TAB PO STA (06:54)
[2019-07-20 07:25] VITALS: BP 95/48; PULSE 65; RESP 16
[2019-07-20] MEDS: SPIRONOLACTONE 50 MG TAB PO SCH (08:40)
[2019-07-20] MEDS: PROPRANOLOL 10 MG TAB PO SCH ×2 (08:41→20:34)
[2019-07-20] MEDS: RIFAXIMIN 550 MG TAB PO SCH ×2 (08:42→20:34)
[2019-07-20] MEDS: MEROPENEM 500MG/50 ML (PMX) 50 ML IVPB SCH ×2 (08:43→20:33)
[2019-07-20] MEDS: FUROSEMIDE 40 MG TAB PO SCH (08:44)
[2019-07-20] MEDS: LACTULOSE 30ML CUP PO SCH ×2 (08:47→20:34)
[2019-07-20 11:46] VITALS: BP 95/53; PULSE 74; RESP 17
[2019-07-20 15:24] VITALS: BP 96/52; PULSE 76; RESP 18
[2019-07-20 20:19] VITALS: BP 97/52; PULSE 85; RESP 17
[2019-07-21 00:08] VITALS: BP 109/55; PULSE 81; RESP 16
[2019-07-21 03:48] VITALS: BP 98/54; PULSE 79; RESP 16
[2019-07-21] MEDS: PANTOPRAZOLE (EC) 40 MG TAB PO SCH ×2 (06:30→17:54)
[2019-07-21 07:25] VITALS: BP 91/53; PULSE 69; RESP 18
[2019-07-21] MEDS: LACTULOSE 30ML CUP PO SCH ×2 (09:00→20:50)
[2019-07-21] MEDS: SPIRONOLACTONE 50 MG TAB PO SCH (09:00)
[2019-07-21] MEDS: PROPRANOLOL 10 MG TAB PO SCH ×2 (09:00→20:50)
[2019-07-21] MEDS: MEROPENEM 500MG/50 ML (PMX) 50 ML IVPB SCH ×2 (09:27→20:50)
[2019-07-21] MEDS: FUROSEMIDE 40 MG TAB PO SCH (09:28)
[2019-07-21] MEDS: RIFAXIMIN 550 MG TAB PO SCH ×2 (09:29→20:50)
[2019-07-21 11:55] VITALS: BP 97/53; PULSE 81; RESP 18
[2019-07-21] MEDS ORDERED: MAGNESIUM SULFATE 2 GM/50 ML 50 ML IVPB ONE (12:00)
[2019-07-21] MEDS ORDERED: POTASSIUM CHLORIDE 20 MEQ POWDER FOR ORAL SOLN PO ONE (12:00)
[2019-07-21 15:48] VITALS: BP 91/50; PULSE 81; RESP 20
[2019-07-21 20:34] VITALS: BP 97/57; PULSE 87; RESP 18
[2019-07-22 00:03] VITALS: BP 98/58; PULSE 78; RESP 18
[2019-07-22 04:31] VITALS: BP 99/58; PULSE 78; RESP 18
[2019-07-22] MEDS: PANTOPRAZOLE (EC) 40 MG TAB PO SCH ×2 (06:16→17:52)
[2019-07-22 07:44] VITALS: BP 103/51; PULSE 86; RESP 17
[2019-07-22] MEDS: LACTULOSE 30ML CUP PO SCH ×2 (08:43→09:00)
[2019-07-22] MEDS: FUROSEMIDE 40 MG TAB PO SCH (08:44)
[2019-07-22] MEDS: RIFAXIMIN 550 MG TAB PO SCH (08:44)
[2019-07-22] MEDS: SPIRONOLACTONE 50 MG TAB PO SCH ×2 (08:44→09:00)
[2019-07-22] MEDS: PROPRANOLOL 10 MG TAB PO SCH ×2 (08:44→09:00)
[2019-07-22] MEDS: MEROPENEM 500MG/50 ML (PMX) 50 ML IVPB SCH ×2 (08:45→20:21)
[2019-07-22 11:21] VITALS: BP 95/53; PULSE 78; RESP 16
[2019-07-22 16:24] VITALS: BP 84/42
[2019-07-22 19:10] VITALS: BP 104/57
== END 2019-07-22 21:06 | DRG 872 ==
LOC: E/R 20:10 → 6WM 21:22 → EDBEDREQSVC 07-16 00:18 → EDBEDREQ 07-16 00:18 → EDBEDREQTM 07-16 00:18
PROVIDERS: ADMIT Internal Medicine; ATTEND Internal Medicine
PROC: 0W9G3ZZ Drainage of Peritoneal Cavity, Percutaneous Approach (ICD-10-PCS; principal; 2019-07-16)
DX: A40.1 Sepsis due to streptococcus, group B (principal); N17.9 Acute kidney failure, unspecified; E87.2 Acidosis; E87.1 Hypo-osmolality and hyponatremia; R18.8 Other ascites; N39.0 Urinary tract infection, site not specified; I85.10 Secondary esophageal varices without bleeding; A41.51 Sepsis due to Escherichia coli [E. coli]; K74.69 Other cirrhosis of liver; N18.9 Chronic kidney disease, unspecified; E87.70 Fluid overload, unspecified; D69.59 Other secondary thrombocytopenia; D63.1 Anemia in chronic kidney disease; Z16.12 Extended spectrum beta lactamase (ESBL) resistance; E87.6 Hypokalemia
CPT/HCPCS: 36415; 71045; 80048; 80053; 80076; 81001; 82550; 82553; 82565; 82803; 83605; 83735; 83880; 84100; 84484; 84520; 85025; 85610; 85730; 87086; 93005; 94660; 96374; 96375; 97110; 97162; 97167; 97530; 97535; J0456; J0692; J0696; J1940; J2185; J3370; J3475; J7040; P9047

== ENCOUNTER 2019-08-11 21:19 | Emergency (ER) | payer OTHER ==
[~2019-08-11] VITALS: Ht 157.5 cm; Wt 65.0 kg
[~2019-08-11 21:19] MED LIST changes: +BICS PO; +BISA10SU55 RC; +BISA5TAB6 PO; +DOCU-159 PO; -FERR325T5 PO; -LACT10SO5 PO; +MAGN400O19 PO; +NA P133E10 RC; +SPIR25TA PO; -SPIR50TA PO; -SPIR50TA4 PO
[2019-08-11 21:23] VITALS: Ht 157.5 cm; Wt 65.0 kg
[2019-08-12 01:55] VITALS: BP 94/57; PULSE 85; RESP 16
== END 2019-08-12 02:04 | disposition home or self-care (01) ==
LOC: E/R 21:19
DX: R18.8 Other ascites (principal); D64.9 Anemia, unspecified; N18.9 Chronic kidney disease, unspecified
CPT/HCPCS: 80053; 83690; 84484; 85025; 99283